=== PATIENT | male | born 1950 | race American Indian/Alaskan Native ===

== ENCOUNTER 2019-04-22 07:25 | Inpatient (IN) | payer MEDICARE ==
[2019-04-22] MEDS ORDERED: NACL 0.9% 1000 ML IV ONE (07:36)
--- NOTE | 2019-04-22 07:40 | Emergency Department Report ---
ED General Adult HPI - General Chief complaint: Weakness Stated complaint: HARSH Time Seen by Provider: 04/22/19 07:29 Source: patient, EMS (verbal report received from EMS.ems notes not available at time of chart dictation), RN notes reviewed Mode of arrival: Stretcher Limitations: Altered Mental Status - History of Present Illness Initial comments: This is a 68-year-old gentleman who is known to this provider previously. The patient does not know who his primary care doctor is. The patient does not know if he takes any medicines. He is brought to the hospital by EMS. As per verbal report from EMS, patient found walking on the street, with no evidence of trauma, and was reportedly wheezing and hypoxic. He is given magnesium, and steroids and albuterol by EMS. The patient denies physical pain at this time. He doesn't know where he is. He states that he ran the [place] in 2016, which he thinks is this year. The patient denies headache, neck pain, chest pain, abdominal pain. The patient denies shortness of breath. He states he has a son-in-law who lives closely, but he is not sure where the son-in-law lives. The patient is able to indicate that he lives in a place called [place], [place]. Patient not able to describe exacerbating or relieving factors, qualitative nature of his symptoms, exacerbating, or radiation of symptoms. -: unknown Radiation: other Quality: other Consistency: other Improves with: other Worsens with: other Associated Symptoms: other - Related Data Home Medications Medication Instructions Recorded Confirmed Last Taken Unobtainable 04/22/19 04/22/19 Unknown Allergies Allergy/AdvReac Type Severity Reaction Status Date / Time No Known Allergies Allergy Unverified 04/22/19 07:45 ED Review of Systems ROS: Stated complaint: HARSH Other details as noted in HPI Comment: Unobtainable due to pts medical conditions Constitutional: malaise, weakness Eyes: denies: eye discharge Respiratory: shortness of breath Cardiovascular: denies: chest pain Gastrointestinal: denies: abdominal pain Genitourinary: denies: dysuria Musculoskeletal: denies: back pain Neurological: weakness, confusion ED Past Medical Hx - Medications Home Medications: Home Medications Medication Instructions Recorded Confirmed Last Taken Type Unobtainable 04/22/19 04/22/19 Unknown History ED Physical Exam - General Limitations: Altered Mental Status General appearance: in no apparent distress - Head Head exam: Present: atraumatic, normocephalic - Eye Eye exam: Present: normal appearance, EOMI, other (visual acuity intact to finger counting and color perception). Absent: nystagmus - ENT ENT exam: Present: normal exam, normal orophraynx, mucous membranes moist, normal external ear exam - Neck Neck exam: Present: normal inspection, full ROM. Absent: tenderness, meningi smus - Respiratory Respiratory exam: Present: decreased breath sounds. Absent: respiratory distress, rales, rhonchi, stridor - Cardiovascular Cardiovascular Exam: Present: normal rhythm, systolic murmur. Absent: bradycar jasmeet, tachycardia, irregular rhythm, diastolic murmur, rubs, gallop - GI/Abdominal GI/Abdominal exam: Present: soft. Absent: distended, tenderness, guarding, xochilt ound, rigid, pulsatile mass - Rectal Rectal exam: Present: deferred - Extremities Exam Extremities exam: Present: normal inspection, full ROM, other (2+ pulses noted in the bilateral upper, lower extremities. Compartments soft. No long bony tenderness. The pelvis is stable.). Absent: calf tenderness - Back Exam Back exam: Present: normal inspection, full ROM. Absent: tenderness, CVA tenderness (R), paraspinal tenderness, vertebral tenderness - Neurological Exam Neurological exam: Present: altered, other (Extraocular movements intact. Tongue midline. No facial droop. Facial sensation intact to light touch in the V1, V2, V3 distribution bilaterally. 5 and 5 strength in 4 extremities.. Sensation is intact to light touch in 4 extremities.). Absent: motor sensory deficit - Psychiatric Psychiatric exam: Present: normal affect, normal mood - Skin Skin exam: Present: warm, dry, intact, normal color. Absent: rash ED Course Vital Signs 04/22/19 04/22/19 04/22/19 07:20 07:25 07:30 Temperature 97.1 F L Pulse Rate 109 H 102 H Respiratory 20 26 H Rate Blood Pressure 109/89 116/79 O2 Sat by Pulse 82 L 84 Oximetry 04/22/19 04/22/19 04/22/19 07:51 08:00 08:01 Temperature 97.1 F L Pulse Rate 109 H 103 H Respiratory 33 H 20 Rate Blood Pressure 117/86 O2 Sat by Pulse 83 L 90 Oximetry 04/22/19 04/22/19 04/22/19 08:30 09:00 09:36 Temperature Pulse Rate 99 H 96 H Respiratory 24 29 H Rate Blood Pressure 117/86 114/75 114/75 O2 Sat by Pulse 89 91 98 Oximetry 04/22/19 04/22/19 10:00 10:30 Temperature Pulse Rate 80 78 Respiratory 28 H 22 Rate Blood Pressure 129/72 119/82 O2 Sat by Pulse 100 98 Oximetry - Reevaluation(s) Reevaluation #1: 04/22/19 09:04 Differential diagnosis, including but not limited to: Heat stroke, toxic encephalopathy, metabolic encephalopathy, active anemia, viremia, pneumonia, urinary tract infection Assessment and plan 68-year-old gentleman, found walking, hypoxic, altered, with a nonfocal neurologic examination, likely dehydrated, evidence of acute renal insufficiency, hypernatremia, rhabdomyolysis, and also somewhat hypoxic. We will start the patient on IV fluids, obtain CT scan of the brain, chest, abdome n, pelvis without contrast, given lack of fever, lack of pain, doubt infectious etiology, but we will cover him. With broad-spectrum antibiotics, we will obtained a nephrology consult, and we will admit to the medical service once his initial diagnostics are resulted. Saturation improving on high flow high humidity nasal cannula. 04/22/19 09:05 Reevaluation #2: 04/22/19 11:17 CT scan of the brain negative for acute disease. CT scan of the chest, abdomen, pelvis negative for acute disease. Patient clinically improving. His motor exam is nonfocal, he is alert to name, and he follows commands. Suspect multifactorial etiology to altered mental status, including presumed hypoxemic respiratory failure, causing delirium, possible heat stroke. Patient has no n clau pain or neck stiffness at this time, no meningeal signs, and he does not have a fever, therefore, invasive MEDICAL OFFICE COORDINATOR infection does not appear to be likely at this time. Lactic acidosis likely secondary to dehydration, poor tissue perfusion secondary to dehydration, and possible heat stroke. Discussed with neurology, Dr. Lemus, who has evaluated the patient, and who agrees with conservative management and also agrees that note spinal tap is needed at this time. She does not recommend AED therapy at this time. Discussed with nephrology, Dr. Finn, who agrees his plan for IV fluids. Does not advise Osborne catheter at this time, as per current recommendations from infectious disease control. He also recommends VQ scan to evaluate for undifferentiated hypoxia which I agree with. CT scan of the brain negative for acute disease. CT scan of the chest shows incidental ascending aortic aneurysm, 5.4 cm, this is likely an incidental finding, the patient has no chest pain, and as it is less than 6 cm, does not require urgent operative intervention. This is likely an incidental finding which can be routinely followed up as an outpatient. CT scan of abdomen and pelvis is negative for acute disease. Discussed with Hospital physician, Dr. Kortney Saavedra, who [facility] patient [facility]. 04/22/19 11:20 Reevaluation #3: 04/22/19 11:22 Respiratory status improved on high flow high humidity nasal cannula therapy. Reevaluation #4: 04/22/19 11:37 Nuclear medicine study is low probability for pulmonary embolism. ED Medical Decision Making - Lab Data Result diagrams: 04/22/19 07:52 04/22/19 07:52 Vital Signs 04/22/19 04/22/19 04/22/19 07:20 07:25 07:30 Temperature 97.1 F L Pulse Rate 109 H 102 H Respiratory 20 26 H Rate Blood Pressure 109/89 116/79 O2 Sat by Pulse 82 L 84 Oximetry 04/22/19 04/22/19 04/22/19 07:51 08:00 08:01 Temperature 97.1 F L Pulse Rate 109 H 103 H Respiratory 33 H 20 Rate Blood Pressure 117/86 O2 Sat by Pulse 83 L 90 Oximetry 04/22/19 08:30 Temperature Pulse Rate 99 H Respiratory 24 Rate Blood Pressure 117/86 O2 Sat by Pulse 89 Oximetry Lab Results 04/22/19 04/22/19 04/22/19 Range/Units 07:52 07:52 07:52 WBC 17.7 H (4.5-11.0) K/mm3 RBC 4.91 (3.65-5.03) M/mm3 Hgb 14.6 (11.8-15.2) gm/dl Hct 43.8 (35.5-45.6) % MCV 89 (84-94) fl MCH 30 (28-32) pg MCHC 33 (32-34) % RDW 14.4 (13.2-15.2) % Plt Count 245 (140-440) K/mm3 Lymph % (Auto) 5.0 L (13.4-35.0) % Day % (Auto) 7.6 H (0.0-7.3) % Eos % (Auto) 0.0 (0.0-4.3) % Baso % (Auto) 0.2 (0.0-1.8) % Lymph # 0.9 L (1.2-5.4) K/mm3 Day # 1.3 H (0.0-0.8) K/mm3 Eos # 0.0 (0.0-0.4) K/mm3 Baso # 0.0 (0.0-0.1) K/mm3 Seg Neutrophils % 87.2 H (40.0-70.0) % Seg Neutrophils # 15.4 H (1.8-7.7) K/mm3 PT 14.7 (12.2-14.9) Sec. INR 1.18 H (0.87-1.13) Sodium 152 H (137-145) mmol/L Potassium 3.6 (3.6-5.0) mmol/L Chloride 112.2 H (98-107) mmol/L Carbon Dioxide 20 L (22-30) mmol/L Anion Gap 23 mmol/L BUN 36 H (9-20) mg/dL Creatinine 3.5 H (0.8-1.5) mg/dL Estimated GFR 18 ml/min BUN/Creatinine Ratio 10 % Glucose 160 H (75-100) mg/dL Lactic Acid (0.7-2.0) mmol/L Calcium 10.4 H (8.4-10.2) mg/dL Magnesium 3.20 H (1.7-2.3) mg/dL Total Bilirubin 1.10 (0.1-1.2) mg/dL AST 46 H (5-40) units/L ALT 21 (7-56) units/L Alkaline Phosphatase 99 (35-129) units/L Ammonia (25-60) umol/L Total Creatine Kinase 3140 H (55-170) units/L Troponin T 0.029 (0.00-0.029) ng/mL Total Protein 8.7 H (6.3-8.2) g/dL Albumin 4.4 (3.9-5) g/dL Albumin/Globulin Ratio 1.0 % TSH (0.270-4.200) mlU/mL Free T4 (0.76-1.46) ng/dL Salicylates (2.8-20.0) mg/dL Acetaminophen (10.0-30.0) ug/mL Plasma/Serum Alcohol (0-0.07) % 04/22/19 04/22/19 04/22/19 Range/Units 07:52 07:52 07:52 WBC (4.5-11.0) K/mm3 RBC (3.65-5.03) M/mm3 Hgb (11.8-15.2) gm/dl Hct (35.5-45.6) % MCV (84-94) fl MCH (28-32) pg MCHC (32-34) % RDW (13.2-15.2) % Plt Count (140-440) K/mm3 Lymph % (Auto) (13.4-35.0) % Day % (Auto) (0.0-7.3) % Eos % (Auto) (0.0-4.3) % Baso % (Auto) (0.0-1.8) % Lymph # (1.2-5.4) K/mm3 Day # (0.0-0.8) K/mm3 Eos # (0.0-0.4) K/mm3 Baso # (0.0-0.1) K/mm3 Seg Neutrophils % (40.0-70.0) % Seg Neutrophils # (1.8-7.7) K/mm3 PT (12.2-14.9) Sec. INR (0.87-1.13) Sodium (137-145) mmol/L Potassium (3.6-5.0) mmol/L Chloride (98-107) mmol/L Carbon Dioxide (22-30) mmol/L Anion Gap mmol/L BUN (9-20) mg/dL Creatinine (0.8-1.5) mg/dL Estimated GFR ml/min BUN/Creatinine Ratio % Glucose (75-100) mg/dL Lactic Acid 3.60 H* (0.7-2.0) mmol/L Calcium (8.4-10.2) mg/dL Magnesium (1.7-2.3) mg/dL Total Bilirubin (0.1-1.2) mg/dL AST (5-40) units/L ALT (7-56) units/L Alkaline Phosphatase (35-129) units/L Ammonia (25-60) umol/L Total Creatine Kinase (55-170) units/L Troponin T (0.00-0.029) ng/mL Total Protein (6.3-8.2) g/dL Albumin (3.9-5) g/dL Albumin/Globulin Ratio % TSH (0.270-4.200) mlU/mL Free T4 (0.76-1.46) ng/dL Salicylates < 0.3 L (2.8-20.0) mg/dL Acetaminophen < 5.0 L (10.0-30.0) ug/mL Plasma/Serum Alcohol (0-0.07) % 04/22/19 04/22/19 04/22/19 Range/Units 07:52 07:52 07:52 WBC (4.5-11.0) K/mm3 RBC (3.65-5.03) M/mm3 Hgb (11.8-15.2) gm/dl Hct (35.5-45.6) % MCV (84-94) fl MCH (28-32) pg MCHC (32-34) % RDW (13.2-15.2) % Plt Count (140-440) K/mm3 Lymph % (Auto) (13.4-35.0) % Day % (Auto) (0.0-7.3) % Eos % (Auto) (0.0-4.3) % Baso % (Auto) (0.0-1.8) % Lymph # (1.2-5.4) K/mm3 Day # (0.0-0.8) K/mm3 Eos # (0.0-0.4) K/mm3 Baso # (0.0-0.1) K/mm3 Seg Neutrophils % (40.0-70.0) % Seg Neutrophils # (1.8-7.7) K/mm3 PT (12.2-14.9) Sec. INR (0.87-1.13) Sodium (137-145) mmol/L Potassium (3.6-5.0) mmol/L Chloride (98-107) mmol/L Carbon Dioxide (22-30) mmol/L Anion Gap mmol/L BUN (9-20) mg/dL Creatinine (0.8-1.5) mg/dL Estimated GFR ml/min BUN/Creatinine Ratio % Glucose (75-100) mg/dL Lactic Acid (0.7-2.0) mmol/L Calcium (8.4-10.2) mg/dL Magnesium (1.7-2.3) mg/dL Total Bilirubin (0.1-1.2) mg/dL AST (5-40) units/L ALT (7-56) units/L Alkaline Phosphatase (35-129) units/L Ammonia 47.0 (25-60) umol/L Total Creatine Kinase (55-170) units/L Troponin T (0.00-0.029) ng/mL Total Protein (6.3-8.2) g/dL Albumin (3.9-5) g/dL Albumin/Globulin Ratio % TSH (0.270-4.200) mlU/mL Free T4 1.51 H (0.76-1.46) ng/dL Salicylates (2.8-20.0) mg/dL Acetaminophen (10.0-30.0) ug/mL Plasma/Serum Alcohol < 0.01 (0-0.07) % // Range/Units 07:52 WBC (4.5-11.0) K/mm3 RBC (3.65-5.03) M/mm3 Hgb (11.8-15.2) gm/dl Hct (35.5-45.6) % MCV (84-94) fl MCH (28-32) pg MCHC (32-34) % RDW (13.2-15.2) % Plt Count (140-440) K/mm3 Lymph % (Auto) (13.4-35.0) % Day % (Auto) (0.0-7.3) % Eos % (Auto) (0.0-4.3) % Baso % (Auto) (0.0-1.8) % Lymph # (1.2-5.4) K/mm3 Day # (0.0-0.8) K/mm3 Eos # (0.0-0.4) K/mm3 Baso # (0.0-0.1) K/mm3 Seg Neutrophils % (40.0-70.0) % Seg Neutrophils # (1.8-7.7) K/mm3 PT (12.2-14.9) Sec. INR (0.87-1.13) Sodium (137-145) mmol/L Potassium (3.6-5.0) mmol/L Chloride (98-107) mmol/L Carbon Dioxide (22-30) mmol/L Anion Gap mmol/L BUN (9-20) mg/dL Creatinine (0.8-1.5) mg/dL Estimated GFR ml/min BUN/Creatinine Ratio % Glucose (75-100) mg/dL Lactic Acid (0.7-2.0) mmol/L Calcium (8.4-10.2) mg/dL Magnesium (1.7-2.3) mg/dL Total Bilirubin (0.1-1.2) mg/dL AST (5-40) units/L ALT (7-56) units/L Alkaline Phosphatase (35-129) units/L Ammonia (25-60) umol/L Total Creatine Kinase (55-170) units/L Troponin T (0.00-0.029) ng/mL Total Protein (6.3-8.2) g/dL Albumin (3.9-5) g/dL Albumin/Globulin Ratio % TSH 2.260 (0.270-4.200) mlU/mL Free T4 (0.76-1.46) ng/dL Salicylates (2.8-20.0) mg/dL Acetaminophen (10.0-30.0) ug/mL Plasma/Serum Alcohol (0-0.07) % - EKG Data -: EKG Interpreted by Mn EKG shows normal: sinus rhythm Rate: normal - EKG Data When compared to previous EKG there are: previous EKG unavailable 04/22/19 09:07 EKG #2 suggests atrial fibrillation, with a left axis deviation, premature ventricular contractions, QTC within normal limits, motion artifact, no endorsement of chest pain, the EKG is abnormal, however, not consistent with ST elevation myocardial infarction. - Radiology Data Radiology results: report reviewed, image reviewed Print Report Referring Physician: MADDIE FORD Patient Name: TIKI COLLINS Date of : 1950 Sex: Male Report Date: 2019-04-22 Report Status: Finalized Findings [facility] [address] [place] [address] XRay Report Signed Patient: TIKI COLLINS MR#: [id number] : 1950 Acct:[id number] Age/Sex: 68 / M ADM Date: 04/22/19 Loc: ED Attending Dr: Ordering Physician: MADDIE FORD MD Date of Service: 04/22/19 Procedure(s): XR chest 1V ap Accession Number(s): [id number] cc: MADDIE FORD MD Fluoro Time In Minutes: CHEST 1 VIEW INDICATION: Acute shortness of breath. COMPARISON: None FINDINGS: Support devices: None. Heart: Heart size is within normal limits. The ascending aorta is markedly ectatic but well defined. This could indicate aortic valve stenosis. Lungs/Pleura: Normal pulmonary vessels. The lungs are clear. No pleural effusion or pneumothorax. Additional findings: Chronic left rib fractures are noted. No acute bony findings. IMPRESSION: 1. Ectatic ascending aorta. Lungs clear. Signer Name: Joseph Blount Jr, MD Signed: 04/22/2019 8:14 AM Workstation Name: [id number] Transcribed By: TTR Dictated By: JOSEPH BLOUNT JR, MD Electronically Authenticated By: JOSEPH BLOUNT JR, MD Signed Date/Time: 04/22/[address] scan of brain negative for acute disease. CT scan of the chest negative for acute disease, AAA/5.[address] scan of the abdomen and pelvis negative for acute disease, incidental findings noted. Critical Care Time: Yes Critical care time in (mins) excluding proc time.: 60 Critical care attestation.: If time is entered above; I have spent that time in minutes in the direct care of this critically ill patient, excluding procedure time. ED Disposition Clinical Impression: Encephalopathy acute, Respiratory failure, SEVERO (acute kidney injury), Rhabdomyolysis Disposition: OP ADMIT IP TO THIS HOSP Is pt being admited?: Yes Condition: Fair
[2019-04-22 08:13] LABS: Basophils % (Auto) 0.2 % (0.0-1.8); Hematocrit 43.8 % (35.5-45.6); Hemoglobin 14.6 gm/dl (11.8-15.2); Lymphocytes # (Auto) 0.9 K/mm3 (1.2-5.4); Mean Corpuscular HGB Conc 33 % (32-34); Mean Corpuscular Volume 89 fl (84-94); Monocytes # (Auto) 1.3 K/mm3 (0.0-0.8); Monocytes % (Auto) 7.6 % (0.0-7.3); Platelet Count 245 K/mm3 (140-440); Red Blood Count 4.91 M/mm3 (3.65-5.03); Red Cell Distribution Width 14.4 % (13.2-15.2)
--- NOTE | 2019-04-22 08:18 | XRay Report ---
CHEST 1 VIEW INDICATION: Acute shortness of breath. COMPARISON: None FINDINGS: Support devices: None. Heart: Heart size is within normal limits. The ascending aorta is markedly ectatic but well defined. This could indicate aortic valve stenosis. Lungs/Pleura: Normal pulmonary vessels. The lungs are clear. No pleural effusion or pneumothorax. Additional findings: Chronic left rib fractures are noted. No acute bony findings. IMPRESSION: 1. Ectatic ascending aorta. Lungs clear. Signer Name: Joseph Blount Jr, MD Signed: 04/22/2019 8:14 AM Workstation Name: [id number]
[2019-04-22 08:25] LABS: INR 1.18 (0.87-1.13)
[2019-04-22 08:30] LABS: Albumin 4.4 g/dL (3.9-5); Calcium 10.4 mg/dL (8.4-10.2)
[2019-04-22] MEDS ORDERED: NACL 0.9% 500 ML 500 ML IV ONE (08:59)
[2019-04-22] MEDS ORDERED: ZOSYN/NS 3.375GM/50ML 3.375 GM/50 ML BAG IV ONE (10:00)
--- NOTE | 2019-04-22 10:15 | Cat Scan Report ---
CT CHEST WITHOUT CONTRAST INDICATION / CLINICAL INFORMATION: sob. Difficulty in breathing for one day TECHNIQUE: Axial CT images were obtained through the chest without contrast. All CT scans at this location are p erformed using CT dose reduction for ALARA by means of automated exposure control. COMPARISON: None available. FINDINGS: HEART: Normal heart size. Moderate aortic valve calcifications are identified. No pericardial abnorma lity. THORACIC AORTA: The ascending aorta is dilated up to 5.4 cm in diameter. The aortic arch measures 3.9 cm. The descending thoracic aorta measures 3.0 cm. There is no obvious dissection although this is a noncontrast exam MEDIASTINUM and CHRISTOPHER: No significant abnormality. LUNGS: No acute air space or interstitial disease. Minor linear scarring or atelectasis is noted in both lower lobes. PLEURA: No significant pleural effusion. No pneumothorax. ADDITIONAL FINDINGS: None. UPPER ABDOMEN: Mild colonic diverticulosis. SKELETAL SYSTEM: Intact. Mild thoracic spondylosis IMPRESSION: 1. Dilated ascending aorta measuring up to 5.4 cm in diameter. Aortic valve calcifications. Correlate for aortic stenosis. 2. Minor scarring or atelectatic changes in the lower lobes. Signer Name: Joseph Blount Jr, MD Signed: 04/22/2019 10:11 AM Workstation Name: [id number]
--- NOTE | 2019-04-22 10:19 | Cat Scan Report ---
CT ABDOMEN AND PELVIS WITHOUT CONTRAST HISTORY: Abnormal kidney function, difficulty breathing for one day, patient denies abdominal pain. COMPARISON: None. TECHNIQUE: CT images of the abdomen and pelvis were obtained without administration of intravenous co ntrast. All CT scans at this location are performed using CT dose reduction for ALARA by means of au tomated exposure control. 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 N ormal biliary system, pancreas, spleen and adrenal glands. Both kidneys are normal size, contour and position. A 7 mm calyceal stone is identified at the inferi or pole of the left kidney. The ureters and bladder are unremarkable. The bowel loops are normal caliber and wall thickness. There is mild diverticulosis of the distal col on. Normal appendix. No evidence for ascites, bulky adenopathy, free air or inflammatory changes. The abdominal aorta is n ormal caliber. The bony structures are intact. Moderate degenerative disc disease is noted at L5-S1. Heterotopic theresa cifications are identified posterior to the right ischium suggesting previous trauma. Ventriculoperitoneal shunt tubing in the abdomen is noted without abnormality IMPRESSION: No acute abdominal process. 7 mm left renal calculus, nonobstructing. Mild diverticulosis of the distal colon. Signer Name: Joseph Blount Jr, MD Signed: 04/22/2019 10:15 AM Workstation Name: [id number]
--- NOTE | 2019-04-22 10:21 | Emergency Department Report ---
ED Neuro Deficit HPI - General Chief Complaint: Weakness Stated Complaint: HARSH Time Seen by Provider: 04/22/19 07:29 Source: patient, EMS (verbal report received from EMS.ems notes not available at time of chart dictation), RN notes reviewed Mode of arrival: Stretcher Limitations: Altered Mental Status - History of Present Illness Initial Comments: [facility] DATE: April 22 2019 Impression: AMS-patient with mx toxic metaboic issues hypernatremia, elevated lactate, renal failure likley toxic metabolic in nature. Has hx aneurysm, shunt, no hx seizures. No focal findings. Can rehydrate, was also hypoxic, can consider MRI brain, EEG defer to inpatient neurology. 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 Of course if clinical course declines could consider LP/tapping shunt no need for moment. No need for empiric antiepileptic therapy at this point in time. If the patient improves as expected with correction of his underlying toxic metabolic issues than likely heatstroke/dehydration at play. Of course if he declines in anyway additional or more aggressive workup can be considered. Recommendations: -rehydration -hold sedating meds -hopefully family can be contacted for more information -as above -admit for observation/neurology consultation CC: AMS History of Present Illness: The patient is a 68 year old man with a hx of prior ruptured brain aneurysms s/p shunt placement denies hx seizures. He was found walking down the road confused found to be mildly hypoxic with sat of 83% also in SEVERO creatinine of 3.5 with elvated lactate of 3.6 and WBC of 17. VSS normal BP no fever, no MATHIS no N/V. Pleasantly confused. Diagnostic Testing: CT w/o stable no acute findings HOT PLATE [employer] FEEDER shunt in place Vital Signs: afebrile, BP 129/72. Exam: Mental Status: Awake, alert, oriented to person, knows day of week, month, year president cannot say hes at [facility], when asked why hes here he said he was tryign to run the [employer] which was apparently yesterday. Follows commands, names ob jections Naming: Intact Repetition: Intact Speech: fluent Cranial Nerves: Pupils: Equal round and reactive to light Extraocular movements: Intact in all cardinal gaze Ptosis: Absent Visual gamboa: Intact to finger counting Facial sensation: Intact to pin and light touch Facial movements: Intact and symmetric Motor Exam: No drift Tremor/Abnormal Movements: Resting tremor: Absent Intention tremor: Absent Postural tremor: Absent Sensory Exam: Light touch: Intact Pinprick: Intact Coordination: Finger to nose: Intact Heel to owens: Intact Medical Decision Making: - Extensive number of diagnosis or management options are considered above. - Extensive amount of complex data reviewed. - High risk of complication and/or morbidity or mortality are associated with differential diagnostic considerations above. - There may be uncertain outcome and increased probability of prolonged functional impairment or high probability of severe prolonged functional impairment associated with some of these differential diagnosis. Medical Data Reviewed: 1.Data reviewed include clinical labs, radiology, Medical Tests; 2.Tests results discussed w/performing or interpreting physician; 3.Obtaining/reviewing old medical records; 4.Obtaining case history from another source; 5.Independent review of image, tracing or specimen. Patient was informed the Neurology Consult would happen via telehealth (remote video) and consented to receiving care in this manner. - Related Data Home Medications: Home Medications Medication Instructions Recorded Confirmed Last Taken Unobtainable 04/22/19 04/22/19 Unknown Allergies/Adverse Reactions: Allergies Allergy/AdvReac Type Severity Reaction Status Date / Time No Known Allergies Allergy Unverified 04/22/19 07:45 ED Review of Systems ROS: Stated complaint: HARSH Other details as noted in HPI Constitutional: malaise, weakness Eyes: denies: eye discharge Respiratory: shortness of breath Cardiovascular: denies: chest pain Gastrointestinal: denies: abdominal pain Genitourinary: denies: dysuria Musculoskeletal: denies: back pain Neurological: weakness, confusion ED Past Medical Hx - Past Medical History Hx Hypertension: Yes Additional medical history: Brain Aneurysm - Surgical History Past Surgical History?: Yes Additional Surgical History: Brain - Social History Smoking Status: Unknown if ever smoked Substance Use Type: None - Medications Home Medications: Home Medications Medication Instructions Recorded Confirmed Last Taken Type Unobtainable 04/22/19 04/22/19 Unknown History ED Neuro Physical Exam - General Limitations: Altered Mental Status General appearance: in no apparent distress Suspected Stroke: No ED Course Vital Signs 04/22/19 04/22/19 04/22/19 07:20 07:25 07:30 Temperature 97.1 F L Pulse Rate 109 H 102 H Respiratory 20 26 H Rate Blood Pressure 109/89 116/79 O2 Sat by Pulse 82 L 84 Oximetry 04/22/19 04/22/19 04/22/19 07:51 08:00 08:01 Temperature 97.1 F L Pulse Rate 109 H 103 H Respiratory 33 H 20 Rate Blood Pressure 117/86 O2 Sat by Pulse 83 L 90 Oximetry 04/22/19 04/22/19 04/22/19 08:30 09:00 09:36 Temperature Pulse Rate 99 H 96 H Respiratory 24 29 H Rate Blood Pressure 117/86 114/75 114/75 O2 Sat by Pulse 89 91 98 Oximetry 04/22/19 10:00 Temperature Pulse Rate 80 Respiratory 28 H Rate Blood Pressure 129/72 O2 Sat by Pulse 100 Oximetry - Lab Data Result diagrams: 04/22/19 07:52 04/22/19 07:52 Lab Results 04/22/19 04/22/19 04/22/19 Range/Units 07:52 07:52 07:52 WBC 17.7 H (4.5-11.0) K/mm3 RBC 4.91 (3.65-5.03) M/mm3 Hgb 14.6 (11.8-15.2) gm/dl Hct 43.8 (35.5-45.6) % MCV 89 (84-94) fl MCH 30 (28-32) pg MCHC 33 (32-34) % RDW 14.4 (13.2-15.2) % Plt Count 245 (140-440) K/mm3 Lymph % (Auto) 5.0 L (13.4-35.0) % [place] % (Auto) 7.6 H (0.0-7.3) % Eos % (Auto) 0.0 (0.0-4.3) % Baso % (Auto) 0.2 (0.0-1.8) % Lymph # 0.9 L (1.2-5.4) K/mm3 [place] # 1.3 H (0.0-0.8) K/mm3 Eos # 0.0 (0.0-0.4) K/mm3 Baso # 0.0 (0.0-0.1) K/mm3 Seg Neutrophils % 87.2 H (40.0-70.0) % Seg Neutrophils # 15.4 H (1.8-7.7) K/mm3 PT 14.7 (12.2-14.9) Sec. INR 1.18 H (0.87-1.13) Sodium 152 H (137-145) mmol/L Potassium 3.6 (3.6-5.0) mmol/L Chloride 112.2 H (98-107) mmol/L Carbon Dioxide 20 L (22-30) mmol/L Anion Gap 23 mmol/L BUN 36 H (9-20) mg/dL Creatinine 3.5 H (0.8-1.5) mg/dL Estimated GFR 18 ml/min BUN/Creatinine Ratio 10 % Glucose 160 H (75-100) mg/dL Lactic Acid (0.7-2.0) mmol/L Calcium 10.4 H (8.4-10.2) mg/dL Magnesium 3.20 H (1.7-2.3) mg/dL Total Bilirubin 1.10 (0.1-1.2) mg/dL AST 46 H (5-40) units/L ALT 21 (7-56) units/L Alkaline Phosphatase 99 (35-129) units/L Ammonia (25-60) umol/L Total Creatine Kinase 3140 H (55-170) units/L Troponin T 0.029 (0.00-0.029) ng/mL Total Protein 8.7 H (6.3-8.2) g/dL Albumin 4.4 (3.9-5) g/dL Albumin/Globulin Ratio 1.0 % TSH (0.270-4.200) mlU/mL Free T4 (0.76-1.46) ng/dL Salicylates (2.8-20.0) mg/dL Acetaminophen (10.0-30.0) ug/mL Plasma/Serum Alcohol (0-0.07) % 04/22/19 04/22/19 04/22/19 Range/Units 07:52 07:52 07:52 WBC (4.5-11.0) K/mm3 RBC (3.65-5.03) M/mm3 Hgb (11.8-15.2) gm/dl Hct (35.5-45.6) % MCV (84-94) fl MCH (28-32) pg MCHC (32-34) % RDW (13.2-15.2) % Plt Count (140-440) K/mm3 Lymph % (Auto) (13.4-35.0) % [place] % (Auto) (0.0-7.3) % Eos % (Auto) (0.0-4.3) % Baso % (Auto) (0.0-1.8) % Lymph # (1.2-5.4) K/mm3 [place] # (0.0-0.8) K/mm3 Eos # (0.0-0.4) K/mm3 Baso # (0.0-0.1) K/mm3 Seg Neutrophils % (40.0-70.0) % Seg Neutrophils # (1.8-7.7) K/mm3 PT (12.2-14.9) Sec. INR (0.87-1.13) Sodium (137-145) mmol/L Potassium (3.6-5.0) mmol/L Chloride (98-107) mmol/L Carbon Dioxide (22-30) mmol/L Anion Gap mmol/L BUN (9-20) mg/dL Creatinine (0.8-1.5) mg/dL Estimated GFR ml/min BUN/Creatinine Ratio % Glucose (75-100) mg/dL Lactic Acid 3.60 H* (0.7-2.0) mmol/L Calcium (8.4-10.2) mg/dL Magnesium (1.7-2.3) mg/dL Total Bilirubin (0.1-1.2) mg/dL AST (5-40) units/L ALT (7-56) units/L Alkaline Phosphatase (35-129) units/L Ammonia (25-60) umol/L Total Creatine Kinase (55-170) units/L Troponin T (0.00-0.029) ng/mL Total Protein (6.3-8.2) g/dL Albumin (3.9-5) g/dL Albumin/Globulin Ratio % TSH (0.270-4.200) mlU/mL Free T4 (0.76-1.46) ng/dL Salicylates < 0.3 L (2.8-20.0) mg/dL Acetaminophen < 5.0 L (10.0-30.0) ug/mL Plasma/Serum Alcohol (0-0.07) % 04/22/19 04/22/19 04/22/19 Range/Units 07:52 07:52 07:52 WBC (4.5-11.0) K/mm3 RBC (3.65-5.03) M/mm3 Hgb (11.8-15.2) gm/dl Hct (35.5-45.6) % MCV (84-94) fl MCH (28-32) pg MCHC (32-34) % RDW (13.2-15.2) % Plt Count (140-440) K/mm3 Lymph % (Auto) (13.4-35.0) % [place] % (Auto) (0.0-7.3) % Eos % (Auto) (0.0-4.3) % Baso % (Auto) (0.0-1.8) % Lymph # (1.2-5.4) K/mm3 [place] # (0.0-0.8) K/mm3 Eos # (0.0-0.4) K/mm3 Baso # (0.0-0.1) K/mm3 Seg Neutrophils % (40.0-70.0) % Seg Neutrophils # (1.8-7.7) K/mm3 PT (12.2-14.9) Sec. INR (0.87-1.13) Sodium (137-145) mmol/L Potassium (3.6-5.0) mmol/L Chloride (98-107) mmol/L Carbon Dioxide (22-30) mmol/L Anion Gap mmol/L BUN (9-20) mg/dL Creatinine (0.8-1.5) mg/dL Estimated GFR ml/min BUN/Creatinine Ratio % Glucose (75-100) mg/dL Lactic Acid (0.7-2.0) mmol/L Calcium (8.4-10.2) mg/dL Magnesium (1.7-2.3) mg/dL Total Bilirubin (0.1-1.2) mg/dL AST (5-40) units/L ALT (7-56) units/L Alkaline Phosphatase (35-129) units/L Ammonia 47.0 (25-60) umol/L Total Creatine Kinase (55-170) units/L Troponin T (0.00-0.029) ng/mL Total Protein (6.3-8.2) g/dL Albumin (3.9-5) g/dL Albumin/Globulin Ratio % TSH (0.270-4.200) mlU/mL Free T4 1.51 H (0.76-1.46) ng/dL Salicylates (2.8-20.0) mg/dL Acetaminophen (10.0-30.0) ug/mL Plasma/Serum Alcohol < 0.01 (0-0.07) % 04/22/19 Range/Units 07:52 WBC (4.5-11.0) K/mm3 RBC (3.65-5.03) M/mm3 Hgb (11.8-15.2) gm/dl Hct (35.5-45.6) % MCV (84-94) fl MCH (28-32) pg MCHC (32-34) % RDW (13.2-15.2) % Plt Count (140-440) K/mm3 Lymph % (Auto) (13.4-35.0) % [place] % (Auto) (0.0-7.3) % Eos % (Auto) (0.0-4.3) % Baso % (Auto) (0.0-1.8) % Lymph # (1.2-5.4) K/mm3 [place] # (0.0-0.8) K/mm3 Eos # (0.0-0.4) K/mm3 Baso # (0.0-0.1) K/mm3 Seg Neutrophils % (40.0-70.0) % Seg Neutrophils # (1.8-7.7) K/mm3 PT (12.2-14.9) Sec. INR (0.87-1.13) Sodium (137-145) mmol/L Potassium (3.6-5.0) mmol/L Chloride (98-107) mmol/L Carbon Dioxide (22-30) mmol/L Anion Gap mmol/L BUN (9-20) mg/dL Creatinine (0.8-1.5) mg/dL Estimated GFR ml/min BUN/Creatinine Ratio % Glucose (75-100) mg/dL Lactic Acid (0.7-2.0) mmol/L Calcium (8.4-10.2) mg/dL Magnesium (1.7-2.3) mg/dL Total Bilirubin (0.1-1.2) mg/dL AST (5-40) units/L ALT (7-56) units/L Alkaline Phosphatase (35-129) units/L Ammonia (25-60) umol/L Total Creatine Kinase (55-170) units/L Troponin T (0.00-0.029) ng/mL Total Protein (6.3-8.2) g/dL Albumin (3.9-5) g/dL Albumin/Globulin Ratio % TSH 2.260 (0.270-4.200) mlU/mL Free T4 (0.76-1.46) ng/dL Salicylates (2.8-20.0) mg/dL Acetaminophen (10.0-30.0) ug/mL Plasma/Serum Alcohol (0-0.07) % Critical care attestation.: If time is entered above; I have spent that time in minutes in the direct care of this critically ill patient, excluding procedure time. ED Disposition Clinical Impression: Encephalopathy acute Disposition: DC-09 OP ADMIT IP TO THIS HOSP Is pt being admited?: Yes Condition: Fair Referrals: MAXIMINO WESLEY MD [Primary Care Provider] - 3-5 Days
[2019-04-22 10:28] LABS: Bacteria,Urine 1+ /HPF (Negative); Bilirubin,Urine NEG (Negative); Blood,Urine LG (Negative); Color,Urine Yellow (Yellow); Hyaline Casts,Urine 1 /LPF; Mucus,Urine FEW /HPF; Urobilinogen,Urine < 2.0 mg/dL (<2.0)
--- NOTE | 2019-04-22 10:40 | Cat Scan Report ---
CT HEAD WITHOUT CONTRAST INDICATION : ams. Previous history of 2 brain aneurysms. TECHNIQUE: Axial imaging performed from the skull apex through the skull base without the use of con trast. All CT scans at this location are performed using CT dose reduction for ALARA by means of aut omated exposure control. COMPARISON: None FINDINGS: Parenchyma: Mild cortical atrophy and mild nonspecific chronic white matter changes are identified. No evidence for hemorrhage, mass, mass effect or extra-axial fluid collection. 1 cm chronic focal in farct is noted in the posterior right cerebellum. Previous aneurysm coiling along the right side of t he [place] of [place] and overlying the expected position of the right P-comm are noted, correlate with history. Ventricles: Ventricles are normal in size and appear symmetric. A right frontal and left parietal ve ntriculoperitoneal shunts are identified. Soft tissues: Soft tissues including the orbits appear normal. Bones: No acute osseous abnormality. Sinuses: Sinuses and mastoid air cells are clear. IMPRESSION: No acute abnormality. Mild volume loss and chronic right matter changes. Chronic 1 cm inf arct in the right cerebellum. Bilateral ventriculoperitoneal shunts are in place. No hydrocephalus. P revious aneurysm coiling as described. Signer Name: Joseph Blount Jr, MD Signed: 04/22/2019 10:36 AM Workstation Name: [id number]
--- NOTE | 2019-04-22 11:29 | Nuclear Medicine Report ---
VENTILATION PERFUSION PULMONARY SCINTIGRAPHY HISTORY: Acute shortness of breath and hypoxia COMPARISON: 04/22/2019 at 0744 hours chest radiograph. TECHNIQUE: Radiopharmaceutical was inhaled. Tc-99m-MAA was then injected. Ventilation and perfusion images were acquired. RADIOPHARMACEUTICAL: 13.8 mCi of Xe-133 inhaled 5.5 mCi of Tc-99m-MAA injected FINDINGS: VENTILATION: No significant air trapping or defect. PERFUSION: No significant segmental or non-segmental defect. Additional Findings: None. IMPRESSION: 1. Low probability for pulmonary embolism. Signer Name: Joseph Blount Jr, MD Signed: 04/22/2019 11:25 AM Workstation Name: [id number]
--- NOTE | 2019-04-22 11:35 | Consultation ---
History of Present Illness - Reason for Consult Consult date: 04/22/19 acute renal failure, hypernatremia - History of Present Illness Mr. Blanchard is a 68yo with hx of brain aneurysm and hypertension who presented to the ED via EMS due to AMS. Patient reports that he participated in the [employer] yesterday and states that ambulance was called because he "was not 100%". Per ED MD, patient was brought in by ambulance this morning as patient was found walking on the street, with no evidence of trauma, and was reportedly wheezing and hypoxic. Presently, patient denies fever, SOB, cough, N/V and diarrhea. He denies change in urine and urinary frequency. He denies NSAID use. Past History Past Medical History: hypertension (dx 2015), other (Brain aneurysm s/p repair, CONFIDENTIAL SECRETARY shunt in 2009) Past Surgical History: Other (as above) Social history: no significant social history Family history: no significant family history Medications and Allergies Allergies Allergy/AdvReac Type Severity Reaction Status Date / Time No Known Allergies Allergy Unverified 04/22/19 07:45 Home Medications Medication Instructions Recorded Confirmed Last Taken Type Hydrochlorothiazide 25 mg PO DAILY 04/22/19 04/22/19 Unknown History Lisinopril 20 mg PO DAILY 04/22/19 04/22/19 Unknown History amLODIPine 10 mg PO DAILY 04/22/19 04/22/19 Unknown History Review of Systems All systems: negative Exam - Vital Signs Vital signs: Vital Signs Pulse Ox 82 L 04/22/19 07:20 - General Appearance General appearance: well-developed, well-nourished EENT: ATNC, other (poor dentition) Respiratory: Clear to Ascultation Heart: regular, S1S2 Gastrointestinal: Present: normal. Absent: tenderness, distended Integumentary: no rash, warm and dry Neurologic: confused Musculoskeletal: Present: other (no edema) Psychiatric: cooperative Results - Lab Results 04/22/19 07:52 04/22/19 07:52 Most recent lab results Calcium 10.4 mg/dL (8.4-10.2) H 04/22/19 07:52 Magnesium 3.20 mg/dL (1.7-2.3) H 04/22/19 07:52 Assessment and Plan Impression: * Acute kidney injury secondary to dehydration * Altered mental status * Hypernatremia * Leukocytosis * Urinary tract infection * Hypertension Plan: * No acute indication for renal replacement therapy * Abd/Pelvis CT reviewed - only notable for 7mm left nonobstructing stone * Hold ACEi and thiazide diuretic * Await urine/blood cultures * Abx per primary team * Dose medications for renal function * Avoid potential nephrotoxins * Strict I/O
[2019-04-22] MEDS ORDERED: NACL 0.45% 1000 ML 1,000 ML IV SCH (13:00)
--- NOTE | 2019-04-22 16:35 | Consultation ---
Past History Past Medical History: hypertension (dx 2015), other (Brain aneurysm s/p repair, LAYER OFF shunt in 2009) Past Surgical History: Other (as above) Social history: no significant social history Family history: no significant family history Medications and Allergies Allergies Allergy/AdvReac Type Severity Reaction Status Date / Time No Known Allergies Allergy Unverified 04/22/19 07:45 Home Medications Medication Instructions Recorded Confirmed Last Taken Type Hydrochlorothiazide 25 mg PO DAILY 04/22/19 04/22/19 Unknown History Lisinopril 20 mg PO DAILY 04/22/19 04/22/19 Unknown History amLODIPine 10 mg PO DAILY 04/22/19 04/22/19 Unknown History Active Meds: Active Medications Sodium Chloride (Nacl 0.45% 1000 Ml) 1,000 mls @ 75 mls/hr IV DIRECT BRAXTON Last Admin: 04/22/19 14:08 Dose: 75 mls/hr Documented by: Physical Examination - Vital Signs Vital Signs: Vital Signs Pulse Ox 82 L 04/22/19 07:20 Results - Laboratory Findings CBC and BMP: 04/22/19 07:52 04/22/19 07:52 Abnormal Lab Findings: Abnormal Labs 04/22/19 04/22/19 04/22/19 07:52 07:52 07:52 WBC 17.7 H Lymph % (Auto) 5.0 L [place] % (Auto) 7.6 H Lymph # 0.9 L [place] # 1.3 H Seg Neutrophils % 87.2 H Seg Neutrophils # 15.4 H INR 1.18 H POC ABG pO2 Sodium 152 H Chloride 112.2 H Carbon Dioxide 20 L BUN 36 H Creatinine 3.5 H Glucose 160 H Lactic Acid Calcium 10.4 H Magnesium 3.20 H AST 46 H Total Creatine Kinase 3140 H Total Protein 8.7 H Free T4 Salicylates Acetaminophen 04/22/19 04/22/19 04/22/19 07:52 07:52 07:52 WBC Lymph % (Auto) [place] % (Auto) Lymph # [place] # Seg Neutrophils % Seg Neutrophils # INR POC ABG pO2 Sodium Chloride Carbon Dioxide BUN Creatinine Glucose Lactic Acid 3.60 H* Calcium Magnesium AST Total Creatine Kinase Total Protein Free T4 Salicylates < 0.3 L Acetaminophen < 5.0 L 04/22/19 04/22/19 04/22/19 07:52 09:37 10:31 WBC Lymph % (Auto) [place] % (Auto) Lymph # [place] # Seg Neutrophils % Seg Neutrophils # INR POC ABG pO2 Sodium Chloride Carbon Dioxide BUN Creatinine Glucose Lactic Acid 3.00 H* 2.60 H* Calcium Magnesium AST Total Creatine Kinase Total Protein Free T4 1.51 H Salicylates Acetaminophen 04/22/19 04/22/19 10:41 15:09 WBC Lymph % (Auto) [place] % (Auto) Lymph # [place] # Seg Neutrophils % Seg Neutrophils # INR POC ABG pO2 290 H Sodium Chloride Carbon Dioxide BUN Creatinine Glucose Lactic Acid 2.30 H* Calcium Magnesium AST Total Creatine Kinase Total Protein Free T4 Salicylates Acetaminophen Assessment and Plan Mr. Blanchard is a 68-year-old gentleman with a history of hypertension, and intracranial aneurysm status post clipping/coiling in the past was brought to the hospital on 04/21/2019 by the EMS. Patient could not tell why EMS was called and will call them. Patient states that he participate in a marathon race for the [employer] which is about 6.2 miles in the morning April 21. After completing the marathon race he was short of[ breath. Patient. he saw the EMS but did not know who called them. After after he was brought to the emergency workup revealed that he had lactic acidosis is BUN and creatinine were high. He had hypernatremia. And he had increased CPK 3240. CT scan of the brain did not show any acute infarct however it did show advanced atrophy for patient's age.During my examination patient's daughter was present who also reported that patient has problem with the short-term memory going on for a few years. Physical examination. Mental status. Patient was oriented to time place and circumstance. He was aware of his social and family dynamics. Patient had poor calculation, developmental is intact. Short-term memory was impaired. Recall was 0 over 3 in 5 minutes. With the help of clue he did not get any of them. 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 He also had some impairment of remote memory he could not clearly tell me when he got his Mus tests degree in accounting and is able to say when he graduated from high school. Heart. Normal rate and rhythm. Carotids. Both palpable, no bruit. Cranial nerve. All cranial nerves are within normal limits. Motor. Normal strength in all 4 extremities. Reflexes. Reflexes are within normal limits and there is no asymmetry of reflexes with bilateral downgoing toes. Coordination. Coordination is normal. Sensory. Sensory examination was grossly within normal limits. Gait. Gait was not tested although patient can ambulate without any assistive device and goes to the bathroom without any help. . Impression. #1. Patient seems to have metabolic encephalopathy most likely from dehydration caused by running 6.2 miles. #2. Patient also has rhabdomyolysis from continuous running for 6.2 miles as evidenced by increased CPK #3. Patient has moderate dementia as found out on bedside mental status testing which is supported by advanced atrophy of the brain seen on the CT scan. Recommendation. #1. Adequate hydration to be the CPK down. #2. Patient will be started on medication for dementia, such as NAMZARIC one capsule a day #3. The patient should be evaluated by a sleep specialist as he seems to have Obstructive sleep apnea which can contribute in worsen Dementia.
[2019-04-22] MEDS ORDERED: REGLAN IV PRN ×2 (22:05→22:21)
[2019-04-22] MEDS ORDERED: ZOFRAN IV PRN (22:05)
[2019-04-22] MEDS ORDERED: TYLENOL PO PRN (22:05)
[2019-04-22] MEDS ORDERED: SODIUM CHLORIDE FLUSH SYRINGE 10 ML IV PRN (22:05)
[2019-04-22] MEDS ORDERED: DILAUDID IV PRN (22:05)
[2019-04-22] MEDS: D5W 1,000 ML IV SCH (23:25)
[2019-04-22] MEDS: HEPARIN SUB-Q SCH (23:25)
[2019-04-23] MEDS: ZOSYN/NS 2.25 GM/50ML 2.25 GM/50 ML BAG IV SCH ×2 (00:39→06:00)
--- NOTE | 2019-04-23 04:30 | Event Note ---
Date: 04/22/19 see H/p in reports SEVERO Rhabdomyolysi
--- NOTE | 2019-04-23 05:43 | History and Physical Report ---
CHIEF COMPLAINT: Severe fatigue and dehydration. HISTORY OF PRESENT ILLNESS: A 68-year-old male comes in for severe weakness and he feels that he is dehydrated. He states that he is not 100%. The patient ran ____ race yesterday and no water was available to drink while he was running. The patient has muscle aches all over. The patient has history of hypertension. Never happened before. Feels tired and very weak. PAST MEDICAL HISTORY: Significant for hypertension, brain aneurysm, status post repair, GR[employer]UATE FELLOW shunt in 2009. PAST SURGICAL HISTORY: GRADUATE FELLOW shunt. SOCIAL HISTORY: No significant social history. FAMILY HISTORY: Hypertension. CURRENT MEDICATIONS: Lisinopril, amlodipine and hydrochlorothiazide. MEDICATIONS: On the chart. REVIEW OF SYSTEMS: Significant for feeling weak, muscle aches and feeling dehydrated. Generalized weakness. Otherwise, review of systems negative. PHYSICAL EXAMINATION: GENERAL: Elderly male, cooperative during examination. VITAL SIGNS: Blood pressure is 123/76, temperature is 97.8, pulse is 88, respiratory rate is 22. HEENT: Dry mucous membranes. Pupils equal and reactive. NECK: Supple, no lymphadenopathy, no thyromegaly. LUNGS: Clear to auscultation and percussion. Good air entry. CARDIOVASCULAR: S1, S2 heard. No gallop, no murmur, no rub. Apical impulse in left fifth intercostal space and midclavicular line. ABDOMEN: Soft and benign. No hepatosplenomegaly. No guarding, no rigidity. Hernial orifices are normal. EXTREMITIES: Good pedal pulses. No pedal edema. CENTRAL NERVOUS SYSTEM: Alert and oriented x 4, nonfocal exam. SKIN: Normal. LABORATORY DATA: White count is 17,700, H and H is 14.6 and 43.8, platelet count is 245,000. Electrolytes are significant for sodium of 152, BUN and creatinine of 36 and 3.5, glucose of 160. Lactic acid is 3.6, 2.6, 2.3, calcium is 10.4, magnesium is 3.2, BUN and creatinine is 36 and 3.5 Total CK is 3140, total protein is 8.7, free T4 is 1.51. Urine is negative. Head CT, no acute findings. CT abdomen, no acute abdominal process. A 7 mm left renal calculus, nonobstructing. Mild diverticulosis of the distal colon. Chest CT shows dilated ascending aorta measuring up to 5.4 cm in diameter, aortic valve calcification, correlate for aortic stenosis. Minor scarring or atelectatic changes in the lower lobe. ASSESSMENT AND PLAN: 1. Acute kidney injury secondary to rhabdomyolysis and severe dehydration. Aggressive IV fluid therapy in the form of D5W and half normal saline, possibly acute tubular necrosis. Nephrology consult requested. 2. Rhabdomyolysis. IV fluids, frequent creatine kinase check. 3. Hypertension. Continue antihypertensives. 4. Severe dehydration. Continue IV fluids. 5. Leukocytosis and elevated lactic acid secondary to demargination and sepsis unlikely. We will treat with empiric antibiotics in the form of ceftriaxone, which should cover broad spectrum, but we will deescalate the antibiotics. 6. Deep venous thrombosis prophylaxis, heparin 5000 q.12. In summary, the patient has acute kidney injury secondary to rhabdomyolysis and severe dehydration. Nephrology consult requested, creatinine is 3.5, but I expect the creatinine to come down to normal. SIRS, systemic inflammatory response syndrome. IV antibiotics initiated. Antibiotics may be deescalated. Leukocytosis may be secondary to demargination. Hypertension to be treated. Dehydration to be treated. Nephrology consult requested. Neurology consult requested because of the confusion and acute encephalopathy. JOB# [id number] TONO/SHERIF [place]
[2019-04-23 05:53] LABS: Basophils % (Auto) 0.1 % (0.0-1.8); Hematocrit 35.7 % (35.5-45.6); Hemoglobin 12.1 gm/dl (11.8-15.2); Lymphocytes # (Auto) 0.9 K/mm3 (1.2-5.4); Mean Corpuscular HGB Conc 34 % (32-34); Mean Corpuscular Volume 88 fl (84-94); Monocytes # (Auto) 1.4 K/mm3 (0.0-0.8); Monocytes % (Auto) 7.9 % (0.0-7.3); Platelet Count 193 K/mm3 (140-440); Red Blood Count 4.05 M/mm3 (3.65-5.03); Red Cell Distribution Width 14.9 % (13.2-15.2)
[2019-04-23] MEDS ORDERED: ZOSYN/NS 3.375GM/50ML 3.375 GM/50 ML BAG IV SCH (06:00)
[2019-04-23 06:14] LABS: Albumin 3.6 g/dL (3.9-5); Calcium 8.6 mg/dL (8.4-10.2)
[2019-04-23 06:29] LABS: Calcium 8.6 mg/dL (8.4-10.2)
--- NOTE | 2019-04-23 09:21 | Progress Note ---
Subjective Interval history: Patient was seen today for follow-up, regarding multiple renal related issues Events of 24 hours were noted Patient denies any complaints of chest pain pressure or shortness of breath Interdisciplinary Notes were also reviewed from past 24 hours Vitals labs intake output medications: Reviewed Past medical history: Reviewed Allergies: Reviewed Social history: Reviewed Family history: Reviewed Physical examination Gen.: No acute distress HEENT: Mild pallor nor icterus no uremic order Neck: Supple without any mass or JVD Chest: Clear to auscultation anteriorly Heart: Regular rate and rhythm S1 and S2 heard Abdomen: Soft nontender no suprapubic fullness no masses no renal bruit Extremity: Edema , no peripheral cyanosis Skin: No petechial rashes dry skin Assessment and plan Failure likely acute the patient is 68-year-old admitted with hypernatremia, altered mental status, low-grade metabolic acidosis Will need to monitor renal function closely no acute emergent indication for renal replacement therapy at this time Patient does have nephrolithiasis 7 mm left side nonobstructing needs follow-up with urology in outpatient setting upon discharge Lactic acidosis, improving peaked at 4.8 currently 2.6 Renal function is normalized creatinine is currently 1.5 Mild metabolic acidosis today bicarbonate is 21 potassium is 3.5 Low-grade rhabdomyolysis, patient's CK is 6633 Urinalysis essentially unremarkable for any red blood cells but showed large amount of blood likely due to rhabdo CT scan: Reviewed kidney ureter bladder otherwise unremarkable Continue to hold hydrochlorothiazide, lisinopril IV fluid, Ringer's lactate Had a detailed discussion with patient about renal care plan, Renal prognosis currently is guarded Significant lab finding were discussed with patient unexplained and simple Ukrainian Patient does have good understanding about renal related issues We'll continue to follow and make recommendation from renal standpoint Objective - Vital Signs Vital signs: Vital Signs - 12hr 04/22/19 04/23/19 04/23/19 22:00 01:00 02:25 Temperature 98.3 F Pulse Rate 62 72 Pulse Rate [ 88 Left Radial] Respiratory 20 20 Rate Respiratory 20 Rate [ Generalized] Blood Pressure 118/67 O2 Sat by Pulse 98 96 Oximetry 04/23/19 07:37 Temperature Pulse Rate 72 Pulse Rate [ Left Radial] Respiratory 18 Rate Respiratory Rate [ Generalized] Blood Pressure 114/77 O2 Sat by Pulse 97 Oximetry - Lab 04/23/19 05:08 04/23/19 05:08 Most recent lab results Calcium 8.6 mg/dL (8.4-10.2) 04/23/19 05:08 Calcium 8.6 mg/dL (8.4-10.2) D 04/23/19 05:08 Magnesium 3.20 mg/dL (1.7-2.3) H 04/22/19 07:52 Medications & Allergies - Medications Allergies/Adverse Reactions: Allergies No Known Allergies Allergy (Unverified 04/22/19 07:45) Home Medications: Home Medications Medication Instructions Recorded Confirmed Last Taken Type Hydrochlorothiazide 25 mg PO DAILY 04/22/19 04/22/19 Unknown History Lisinopril 20 mg PO DAILY 04/22/19 04/22/19 Unknown History amLODIPine 10 mg PO DAILY 04/22/19 04/22/19 Unknown History Active Medications: Generic Name Dose Route Start Last Admin Trade Name Freq PRN Reason Stop Dose Admin Acetaminophen 650 mg 04/22/19 22:05 Tylenol PO Q4H PRN Pain MILD(1-3)/Fever >100.5/MATHIS Famotidine 10 mg 04/23/19 10:00 Pepcid IV BID BRAXTON Heparin Sodium (Porcine) 5,000 unit 04/22/19 22:15 04/22/19 23:25 Heparin SUB-Q 5,000 unit Q12HR BRAXTON Administration Hydromorphone HCl 0.5 mg 04/22/19 22:05 Dilaudid IV Q3H PRN Pain , Severe (7-10) Dextrose 1,000 mls @ 125 mls/hr 04/22/19 23:00 04/22/19 23:25 D5w IV 125 mls/hr DIRECT BRAXTON Administration Ceftriaxone Sodium 1 gm in 50 mls @ 100 mls/hr 04/23/19 10:00 Rocephin/Ns 1 Gm/50 Ml IV Q24HR BRAXTON Protocol Metoclopramide HCl 5 mg 04/22/19 22:21 Reglan IV Q6H PRN Nausea And Vomiting Ondansetron HCl 4 mg 04/22/19 22:05 Zofran IV Q8H PRN Nausea And Vomiting Sodium Chloride 10 ml 04/23/19 10:00 Sodium Chloride Flush Syringe 10 Ml IV BID BRAXTON Sodium Chloride 10 ml 04/22/19 22:05 Sodium Chloride Flush Syringe 10 Ml IV PRN PRN LINE FLUSH
--- NOTE | 2019-04-23 09:28 | Progress Note ---
Assessment and Plan Assessment and plan: Acute kidney injury Improving Cr 1.5 now Nephrology following Acute rhabdomyolysis. cont iv fluids Dehydration Continue iv fluids Leukocytosis. Monitor Sepsis unlikely Hypokalemia. Replace Check Mg level lactic acidosis likely due to strenous exercise History of cerebral aneurysm repair Full code status L History Interval history: Gen weakness improved Muscle aches Ran 6.2 miles marathon without drinking water. Hospitalist Physical - Physical exam Narrative exam: Gen: Not in acute distress, lying in bed, HEENT: Normocephalic, atraumatic Neck: supple, no JVD Heart: S1 and S2 reg, no murmurs, rubs or gallop Lungs: Clear, no crackles, no wheeze Abd: soft, non tender, non distended, normal BS Ext: No edema, no clubbing, no cyanosis, Neuro: Awake,alert, moves all ext, non focal - Constitutional Vitals: Temp Pulse Resp BP Pulse Ox 98.3 F 72 18 114/77 97 04/23/19 02:25 04/23/19 07:37 04/23/19 07:37 04/23/19 07:37 04/23/19 07:37 Results - Labs CBC & Chem 7: 04/23/19 05:08 04/23/19 05:08 Labs: Laboratory Last Values WBC 18.0 K/mm3 (4.5-11.0) H 04/23/19 05:08 RBC 4.05 M/mm3 (3.65-5.03) 04/23/19 05:08 Hgb 12.1 gm/dl (11.8-15.2) 04/23/19 05:08 Hct 35.7 % (35.5-45.6) D 04/23/19 05:08 MCV 88 fl (84-94) 04/23/19 05:08 MCH 30 pg (28-32) 04/23/19 05:08 MCHC 34 % (32-34) 04/23/19 05:08 RDW 14.9 % (13.2-15.2) 04/23/19 05:08 Plt Count 193 K/mm3 (140-440) 04/23/19 05:08 Lymph % (Auto) 5.0 % (13.4-35.0) L 04/23/19 05:08 [place] % (Auto) 7.9 % (0.0-7.3) H 04/23/19 05:08 Eos % (Auto) 0.0 % (0.0-4.3) 04/23/19 05:08 Baso % (Auto) 0.1 % (0.0-1.8) 04/23/19 05:08 Lymph # 0.9 K/mm3 (1.2-5.4) L 04/23/19 05:08 [place] # 1.4 K/mm3 (0.0-0.8) H 04/23/19 05:08 Eos # 0.0 K/mm3 (0.0-0.4) 04/23/19 05:08 Baso # 0.0 K/mm3 (0.0-0.1) 04/23/19 05:08 Seg Neutrophils % 87.0 % (40.0-70.0) H 04/23/19 05:08 Seg Neutrophils # 15.6 K/mm3 (1.8-7.7) H 04/23/19 05:08 PT 14.7 Sec. (12.2-14.9) 04/22/19 07:52 INR 1.18 (0.87-1.13) H 04/22/19 07:52 POC ABG pH 7.380 (7.35-7.45) 04/22/19 10:41 POC ABG pO2 290 (80-105) H 04/22/19 10:41 POC ABG HCO3 17.5 (22-26 mml/L) 04/22/19 10:41 POC ABG Total CO2 18 (23-27mmol/L) 04/22/19 10:41 POC ABG O2 Sat 100 04/22/19 10:41 POC ABG Base Excess -8 ((-2) - (+3)mmol/L) 04/22/19 10:41 100 % 04/22/19 10:41 Sodium 140 mmol/L (137-145) 04/23/19 05:08 Sodium 141 mmol/L (137-145) D 04/23/19 05:08 Potassium 3.5 mmol/L (3.6-5.0) L 04/23/19 05:08 Potassium 3.5 mmol/L (3.6-5.0) L 04/23/19 05:08 Chloride 108.0 mmol/L (98-107) H 04/23/19 05:08 Chloride 108.3 mmol/L (98-107) H 04/23/19 05:08 Carbon Dioxide 21 mmol/L (22-30) L 04/23/19 05:08 Carbon Dioxide 21 mmol/L (22-30) L 04/23/19 05:08 14 mmol/L 04/23/19 05:08 16 mmol/L 04/23/19 05:08 BUN 26 mg/dL (9-20) H 04/23/19 05:08 BUN 26 mg/dL (9-20) H 04/23/19 05:08 1.5 mg/dL (0.8-1.5) 04/23/19 05:08 1.5 mg/dL (0.8-1.5) D 04/23/19 05:08 Estimated GFR 57 ml/min 04/23/19 05:08 Estimated GFR 57 ml/min 04/23/19 05:08 17 % 04/23/19 05:08 17 % 04/23/19 05:08 Glucose 185 mg/dL (75-100) H 04/23/19 05:08 Glucose 185 mg/dL (75-100) H 04/23/19 05:08 5.6 % (4-6) 04/22/19 23:38 Lactic Acid 2.60 mmol/L (0.7-2.0) H* 04/23/19 07:50 Calcium 8.6 mg/dL (8.4-10.2) 04/23/19 05:08 Calcium 8.6 mg/dL (8.4-10.2) D 04/23/19 05:08 Magnesium 3.20 mg/dL (1.7-2.3) H 04/22/19 07:52 0.90 mg/dL (0.1-1.2) 04/23/19 05:08 AST 115 units/L (5-40) H 04/23/19 05:08 ALT 37 units/L (7-56) 04/23/19 05:08 77 units/L (35-129) 04/23/19 05:08 47.0 umol/L (25-60) 04/22/19 07:52 6633 units/L (55-170) H 04/23/19 05:08 0.029 ng/mL (0.00-0.029) 04/22/19 07:52 7.0 g/dL (6.3-8.2) 04/23/19 05:08 3.6 g/dL (3.9-5) L 04/23/19 05:08 1.1 % 04/23/19 05:08 TSH 2.260 mlU/mL (0.270-4.200) 04/22/19 07:52 Free T4 1.51 ng/dL (0.76-1.46) H 04/22/19 07:52 Yellow (Yellow) 04/22/19 10:03 Slightly-cloudy (Clear) 04/22/19 10:03 5.0 (5.0-7.0) 04/22/19 10:03 Ur Specific [place] 1.019 (1.003-1.030) 04/22/19 10:03 30 mg/dl mg/dL (Negative) 04/22/19 10:03 Neg mg/dL (Negative) 04/22/19 10:03 Tr mg/dL (Negative) 04/22/19 10:03 Lg (Negative) 04/22/19 10:03 Neg (Negative) 04/22/19 10:03 Neg (Negative) 04/22/19 10:03 < 2.0 mg/dL (<2.0) 04/22/19 10:03 Ur Leukocyte Esterase Neg (Negative) 04/22/19 10:03 4.0 /HPF (0.0-6.0) 04/22/19 10:03 3.0 /HPF (0.0-6.0) 04/22/19 10:03 U Epithel Cells (Auto) 1.0 /HPF (0-13.0) 04/22/19 10:03 1+ /HPF (Negative) 04/22/19 10:03 Hyaline Casts 1 /LPF 04/22/19 10:03 Few /HPF 04/22/19 10:03 Salicylates < 0.3 mg/dL (2.8-20.0) L 04/22/19 07:52 Acetaminophen < 5.0 ug/mL (10.0-30.0) L 04/22/19 07:52 Plasma/Serum Alcohol < 0.01 % (0-0.07) 04/22/19 07:52 Active Medications - Current Medications Current Medications: Generic Name Dose Route Start Last Admin Trade Name Lola PRN Reason Stop Dose Admin Acetaminophen 650 mg 04/22/19 22:05 Tylenol PO Q4H PRN Pain MILD(1-3)/Fever >100.5/MATHIS Famotidine 10 mg 04/23/19 10:00 Pepcid IV BID BRAXTON Heparin Sodium (Porcine) 5,000 unit 04/22/19 22:15 04/22/19 23:25 Heparin SUB-Q 5,000 unit Q12HR BRAXTON Administration Hydromorphone HCl 0.5 mg 04/22/19 22:05 Dilaudid IV Q3H PRN Pain , Severe (7-10) Dextrose 1,000 mls @ 125 mls/hr 04/22/19 23:00 04/22/19 23:25 D5w IV 125 mls/hr DIRECT BRAXTON Administration Ceftriaxone Sodium 1 gm in 50 mls @ 100 mls/hr 04/23/19 10:00 Rocephin/Ns 1 Gm/50 Ml IV Q24HR BRAXTON Protocol Metoclopramide HCl 5 mg 04/22/19 22:21 Reglan IV Q6H PRN Nausea And Vomiting Ondansetron HCl 4 mg 04/22/19 22:05 Zofran IV Q8H PRN Nausea And Vomiting Sodium Chloride 10 ml 04/23/19 10:00 Sodium Chloride Flush Syringe 10 Ml IV BID BRAXTON Sodium Chloride 10 ml 04/22/19 22:05 Sodium Chloride Flush Syringe 10 Ml IV PRN PRN LINE FLUSH
[2019-04-23] MEDS: HEPARIN SUB-Q SCH ×2 (11:18→21:44)
[2019-04-23] MEDS: ROCEPHIN/NS 1 GM/50 ML 1 GM/50 ML BAG IV SCH (11:19)
[2019-04-23] MEDS: SODIUM CHLORIDE FLUSH SYRINGE 10 ML IV SCH ×2 (11:20→21:44)
[2019-04-23] MEDS: PEPCID IV SCH ×2 (11:35→21:44)
[2019-04-23] MEDS: D5W 1,000 ML IV SCH ×2 (12:22→21:05)
[2019-04-24 04:38] LABS: Hematocrit 37.8 % (35.5-45.6); Hemoglobin 12.7 gm/dl (11.8-15.2); Mean Corpuscular HGB Conc 34 % (32-34); Mean Corpuscular Volume 89 fl (84-94); Platelet Count 188 K/mm3 (140-440); Red Blood Count 4.23 M/mm3 (3.65-5.03); Red Cell Distribution Width 14.5 % (13.2-15.2)
[2019-04-24 05:03] LABS: BUN/Creatinine Ratio 17; Blood Urea Nitrogen 20 mg/dL (9-20); Calcium 8.8 mg/dL (8.4-10.2); Hemolysis Index 9
[2019-04-24] MEDS: D5W 1,000 ML IV SCH ×3 (05:57→22:31)
--- NOTE | 2019-04-24 09:31 | Progress Note ---
Subjective Interval history: Patient was seen today for follow-up, regarding multiple renal related issues Events of 24 hours were noted Feels much better wants to go home Patient denies any complaints of chest pain pressure or shortness of breath Interdisciplinary Notes were also reviewed from past 24 hours Vitals labs intake output medications: Reviewed Past medical history: Reviewed Allergies: Reviewed Social history: Reviewed Family history: Reviewed Physical examination Gen.: No acute distress HEENT: Mild pallor nor icterus no uremic order Neck: Supple without any mass or JVD Chest: Clear to auscultation anteriorly Heart: Regular rate and rhythm S1 and S2 heard Abdomen: Soft nontender no suprapubic fullness no masses no renal bruit Extremity: Edema , no peripheral cyanosis Skin: No petechial rashes dry skin Assessment and plan Acute kidney injury: Currently in remission creatinine is 1.2 Metabolic acidosis currently doing much better bicarbonate has improved to 23 has had lactic acidosis which has normalized Hypokalemia: Mild, place and follow Hypertension: Stable, bradycardia: Monitor and follow patient is currently not on any drug that would quadrant bradycardia If blood pressure goes up he can be restarted on amlodipine but definitely hold off hydrochlorothiazide and lisinopril which caused dehydration and acute renal failure We'll continue to follow and make recommendation from renal standpoint Objective - Vital Signs Vital signs: Vital Signs - 12hr 04/23/19 04/24/19 04/24/19 23:23 03:39 03:58 Temperature 98.3 F 97 F L Pulse Rate 53 L 56 L Respiratory 16 76 H Rate Blood Pressure 139/92 97/60 O2 Sat by Pulse 98 96 Oximetry 04/24/19 07:17 Temperature 98.1 F Pulse Rate 45 L Respiratory 18 Rate Blood Pressure 132/85 O2 Sat by Pulse 97 Oximetry - Lab 04/24/19 03:13 04/24/19 03:13 Most recent lab results Calcium 8.8 mg/dL (8.4-10.2) 04/24/19 03:13 Phosphorus 2.80 mg/dL (2.5-4.5) D 04/24/19 03:13 Magnesium 1.90 mg/dL (1.7-2.3) 04/23/19 11:25 Medications & Allergies - Medications Allergies/Adverse Reactions: Allergies No Known Allergies Allergy (Unverified 04/22/19 07:45) Home Medications: Home Medications Medication Instructions Recorded Confirmed Last Taken Type Hydrochlorothiazide 25 mg PO DAILY 04/22/19 04/22/19 Unknown History Lisinopril 20 mg PO DAILY 04/22/19 04/22/19 Unknown History amLODIPine 10 mg PO DAILY 04/22/19 04/22/19 Unknown History Active Medications: Generic Name Dose Route Start Last Admin Trade Name Freq PRN Reason Stop Dose Admin Acetaminophen 650 mg 04/22/19 22:05 Tylenol PO Q4H PRN Pain MILD(1-3)/Fever >100.5/MATHIS Famotidine 10 mg 04/23/19 10:00 04/23/19 21:44 Pepcid IV 10 mg BID BRAXTON Administration Heparin Sodium (Porcine) 5,000 unit 04/22/19 22:15 04/23/19 21:44 Heparin SUB-Q 5,000 unit Q12HR BRAXTON Administration Hydromorphone HCl 0.5 mg 04/22/19 22:05 Dilaudid IV Q3H PRN Pain , Severe (7-10) Dextrose 1,000 mls @ 125 mls/hr 04/22/19 23:00 04/24/19 05:57 D5w IV 125 mls/hr DIRECT BRAXTON Administration Ceftriaxone Sodium 1 gm in 50 mls @ 100 mls/hr 04/23/19 10:00 04/23/19 18:21 Rocephin/Ns 1 Gm/50 Ml IV Infused Q24HR BRAXTON Infusion Protocol Metoclopramide HCl 5 mg 04/22/19 22:21 Reglan IV Q6H PRN Nausea And Vomiting Ondansetron HCl 4 mg 04/22/19 22:05 Zofran IV Q8H PRN Nausea And Vomiting Sodium Chloride 10 ml 04/23/19 10:00 04/23/19 21:44 Sodium Chloride Flush Syringe 10 Ml IV 10 ml BID BRAXTON Administration Sodium Chloride 10 ml 04/22/19 22:05 Sodium Chloride Flush Syringe 10 Ml IV PRN PRN LINE FLUSH
[2019-04-24] MEDS ORDERED: K-DUR PO ONE (10:00)
[2019-04-24] MEDS: ROCEPHIN/NS 1 GM/50 ML 1 GM/50 ML BAG IV SCH (10:20)
[2019-04-24] MEDS: PEPCID IV SCH ×2 (10:21→22:23)
[2019-04-24] MEDS: HEPARIN SUB-Q SCH ×2 (10:24→22:30)
[2019-04-24] MEDS: SODIUM CHLORIDE FLUSH SYRINGE 10 ML IV SCH ×2 (10:50→22:23)
--- NOTE | 2019-04-24 16:48 | Progress Note ---
Assessment and Plan Assessment and plan: Acute kidney injury Improving Cr 1.2 now Nephrology following Acute rhabdomyolysis. cont iv fluids Creatinine kinase 6065 Dehydration Continue iv fluids Leukocytosis. Monitor Sepsis unlikely Hypokalemia. Replace Check Mg level lactic acidosis due to strenous exercise. No sepsis SIRS with leukocytosis, tachycardia History of cerebral aneurysm repair Full code status L History Interval history: Gen weakness improved Muscle aches Ran 6.2 miles marathon without drinking water. Hospitalist Physical - Physical exam Narrative exam: Gen: Not in acute distress, lying in bed, obese HEENT: Normocephalic, atraumatic Neck: supple, no JVD Heart: S1 and S2 reg, no murmurs, rubs or gallop Lungs: Clear, no crackles, no wheeze Abd: soft, non tender, non distended, normal BS Ext: No edema, no clubbing, no cyanosis, Neuro: Awake,alert, moves all ext, non focal - Constitutional Vitals: Temp Pulse Resp BP Pulse Ox 98.3 F 63 18 127/86 95 04/24/19 13:51 04/24/19 13:51 04/24/19 13:51 04/24/19 13:51 04/24/19 13:51 Results - Labs CBC & Chem 7: 04/24/19 03:13 04/24/19 03:13 Labs: Laboratory Last Values WBC 10.9 K/mm3 (4.5-11.0) 04/24/19 03:13 RBC 4.23 M/mm3 (3.65-5.03) 04/24/19 03:13 Hgb 12.7 gm/dl (11.8-15.2) 04/24/19 03:13 Hct 37.8 % (35.5-45.6) 04/24/19 03:13 MCV 89 fl (84-94) 04/24/19 03:13 MCH 30 pg (28-32) 04/24/19 03:13 MCHC 34 % (32-34) 04/24/19 03:13 RDW 14.5 % (13.2-15.2) 04/24/19 03:13 Plt Count 188 K/mm3 (140-440) 04/24/19 03:13 Lymph % (Auto) 5.0 % (13.4-35.0) L 04/23/19 05:08 [place] % (Auto) 7.9 % (0.0-7.3) H 04/23/19 05:08 Eos % (Auto) 0.0 % (0.0-4.3) 04/23/19 05:08 Baso % (Auto) 0.1 % (0.0-1.8) 04/23/19 05:08 Lymph # 0.9 K/mm3 (1.2-5.4) L 04/23/19 05:08 [place] # 1.4 K/mm3 (0.0-0.8) H 04/23/19 05:08 Eos # 0.0 K/mm3 (0.0-0.4) 04/23/19 05:08 Baso # 0.0 K/mm3 (0.0-0.1) 04/23/19 05:08 Seg Neutrophils % 87.0 % (40.0-70.0) H 04/23/19 05:08 Seg Neutrophils # 15.6 K/mm3 (1.8-7.7) H 04/23/19 05:08 PT 14.7 Sec. (12.2-14.9) 04/22/19 07:52 INR 1.18 (0.87-1.13) H 04/22/19 07:52 POC ABG pH 7.380 (7.35-7.45) 04/22/19 10:41 POC ABG pO2 290 (80-105) H 04/22/19 10:41 POC ABG HCO3 17.5 (22-26 mml/L) 04/22/19 10:41 POC ABG Total CO2 18 (23-27mmol/L) 04/22/19 10:41 POC ABG O2 Sat 100 04/22/19 10:41 POC ABG Base Excess -8 ((-2) - (+3)mmol/L) 04/22/19 10:41 100 % 04/22/19 10:41 Sodium 144 mmol/L (137-145) 04/24/19 03:13 Potassium 3.3 mmol/L (3.6-5.0) L 04/24/19 03:13 Chloride 109.7 mmol/L (98-107) H 04/24/19 03:13 Carbon Dioxide 23 mmol/L (22-30) 04/24/19 03:13 15 mmol/L 04/24/19 03:13 BUN 20 mg/dL (9-20) 04/24/19 03:13 1.2 mg/dL (0.8-1.5) 04/24/19 03:13 Estimated GFR > 60 ml/min 04/24/19 03:13 17 % 04/24/19 03:13 Glucose 119 mg/dL (75-100) H 04/24/19 03:13 5.6 % (4-6) 04/22/19 23:38 Lactic Acid 1.80 mmol/L (0.7-2.0) 04/23/19 11:45 Calcium 8.8 mg/dL (8.4-10.2) 04/24/19 03:13 Phosphorus 2.80 mg/dL (2.5-4.5) D 04/24/19 03:13 Magnesium 1.90 mg/dL (1.7-2.3) 04/23/19 11:25 0.90 mg/dL (0.1-1.2) 04/23/19 05:08 AST 115 units/L (5-40) H 04/23/19 05:08 ALT 37 units/L (7-56) 04/23/19 05:08 77 units/L (35-129) 04/23/19 05:08 47.0 umol/L (25-60) 04/22/19 07:52 6065 units/L (55-170) H 04/24/19 03:13 0.029 ng/mL (0.00-0.029) 04/22/19 07:52 7.0 g/dL (6.3-8.2) 04/23/19 05:08 3.6 g/dL (3.9-5) L 04/23/19 05:08 1.1 % 04/23/19 05:08 TSH 2.260 mlU/mL (0.270-4.200) 04/22/19 07:52 Free T4 1.51 ng/dL (0.76-1.46) H 04/22/19 07:52 Yellow (Yellow) 04/22/19 10:03 Slightly-cloudy (Clear) 04/22/19 10:03 5.0 (5.0-7.0) 04/22/19 10:03 Ur Specific [place] 1.019 (1.003-1.030) 04/22/19 10:03 30 mg/dl mg/dL (Negative) 04/22/19 10:03 Neg mg/dL (Negative) 04/22/19 10:03 Tr mg/dL (Negative) 04/22/19 10:03 Lg (Negative) 04/22/19 10:03 Neg (Negative) 04/22/19 10:03 Neg (Negative) 04/22/19 10:03 < 2.0 mg/dL (<2.0) 04/22/19 10:03 Ur Leukocyte Esterase Neg (Negative) 04/22/19 10:03 4.0 /HPF (0.0-6.0) 04/22/19 10:03 3.0 /HPF (0.0-6.0) 04/22/19 10:03 U Epithel Cells (Auto) 1.0 /HPF (0-13.0) 04/22/19 10:03 1+ /HPF (Negative) 04/22/19 10:03 Hyaline Casts 1 /LPF 04/22/19 10:03 Few /HPF 04/22/19 10:03 Salicylates < 0.3 mg/dL (2.8-20.0) L 04/22/19 07:52 Acetaminophen < 5.0 ug/mL (10.0-30.0) L 04/22/19 07:52 Plasma/Serum Alcohol < 0.01 % (0-0.07) 04/22/19 07:52 Active Medications - Current Medications Current Medications: Generic Name Dose Route Start Last Admin Trade Name Freq PRN Reason Stop Dose Admin Acetaminophen 650 mg 04/22/19 22:05 Tylenol PO Q4H PRN Pain MILD(1-3)/Fever >100.5/MATHIS Famotidine 10 mg 04/23/19 10:00 04/24/19 10:21 Pepcid IV 10 mg BID BRAXTON Administration Heparin Sodium (Porcine) 5,000 unit 04/22/19 22:15 04/24/19 10:24 Heparin SUB-Q 5,000 unit Q12HR BRAXTON Administration Hydromorphone HCl 0.5 mg 04/22/19 22:05 Dilaudid IV Q3H PRN Pain , Severe (7-10) Dextrose 1,000 mls @ 125 mls/hr 04/22/19 23:00 04/24/19 05:57 D5w IV 125 mls/hr DIRECT BRAXTON Administration Ceftriaxone Sodium 1 gm in 50 mls @ 100 mls/hr 04/23/19 10:00 04/24/19 10:20 Rocephin/Ns 1 Gm/50 Ml IV 100 mls/hr Q24HR BRAXTON Administration Protocol Metoclopramide HCl 5 mg 04/22/19 22:21 Reglan IV Q6H PRN Nausea And Vomiting Ondansetron HCl 4 mg 04/22/19 22:05 Zofran IV Q8H PRN Nausea And Vomiting Sodium Chloride 10 ml 04/23/19 10:00 04/24/19 10:50 Sodium Chloride Flush Syringe 10 Ml IV 10 ml BID BRAXTON Administration Sodium Chloride 10 ml 04/22/19 22:05 Sodium Chloride Flush Syringe 10 Ml IV PRN PRN LINE FLUSH
[2019-04-25 05:13] LABS: Hematocrit 37.3 % (35.5-45.6); Hemoglobin 12.7 gm/dl (11.8-15.2); Mean Corpuscular HGB Conc 34 % (32-34); Mean Corpuscular Volume 89 fl (84-94); Platelet Count 181 K/mm3 (140-440); Red Blood Count 4.21 M/mm3 (3.65-5.03); Red Cell Distribution Width 14.8 % (13.2-15.2)
[2019-04-25 05:39] LABS: BUN/Creatinine Ratio 15; Blood Urea Nitrogen 16 mg/dL (9-20); Calcium 8.8 mg/dL (8.4-10.2); Hemolysis Index 5
[2019-04-25] MEDS: PEPCID IV SCH (09:19)
[2019-04-25] MEDS: ROCEPHIN/NS 1 GM/50 ML 1 GM/50 ML BAG IV SCH (09:19)
[2019-04-25] MEDS: SODIUM CHLORIDE FLUSH SYRINGE 10 ML IV SCH ×2 (09:20→21:57)
[2019-04-25] MEDS: HEPARIN SUB-Q SCH ×2 (09:22→21:56)
[2019-04-25] MEDS: D5W 1,000 ML IV SCH ×3 (10:21→23:15)
--- NOTE | 2019-04-25 12:30 | Progress Note ---
Assessment and Plan Assessment and plan: Patient is 68 yo ran a marathon about 6.2 miles without drinking andny water or fluids and became confused, generalized weakness, hypoxic so brought to Ed. he was diagnosed with acute kidney injury, rhabdomyolysis , dehydration. He was started on IV fluids and placed on Empiric antibiotics because he had leukocytosis, Lactic acidosis. He has improved , renal function is about normal, rhabdomyolysis improving. Sepsis ruled out so antibiotics discontinued. Disposition to discharge in a few days when rhabdomyolysis much improved. Acute kidney injury Improving Cr 1.1 now Nephrology following Acute rhabdomyolysis. cont iv fluids Creatinine kinase improving 2444 today Acute metabolic encephalopathy Resolved Dehydration Continue iv fluids Leukocytosis. Monitor Sepsis unlikely Hypokalemia. Replace Check Mg level lactic acidosis due to strenous exercise. No sepsis SIRS with leukocytosis, tachycardia History of cerebral aneurysm repair Full code status History Interval history: Gen weakness improved Muscle aches Ran 6.2 miles marathon without drinking water. Hospitalist Physical - Physical exam Narrative exam: Gen: Not in acute distress, lying in bed, obese HEENT: Normocephalic, atraumatic Neck: supple, no JVD Heart: S1 and S2 reg, no murmurs, rubs or gallop Lungs: Clear, no crackles, no wheeze Abd: soft, non tender, non distended, normal BS Ext: No edema, no clubbing, no cyanosis, Neuro: Awake,alert, moves all ext, non focal - Constitutional Vitals: Temp Pulse Resp BP Pulse Ox 98.7 F 60 18 124/83 100 04/25/19 07:51 04/25/19 09:39 04/25/19 09:39 04/25/19 07:51 04/25/19 09:39 Results - Labs CBC & Chem 7: 04/25/19 04:53 04/25/19 04:53 Labs: Laboratory Last Values WBC 5.7 K/mm3 (4.5-11.0) 04/25/19 04:53 RBC 4.21 M/mm3 (3.65-5.03) 04/25/19 04:53 Hgb 12.7 gm/dl (11.8-15.2) 04/25/19 04:53 Hct 37.3 % (35.5-45.6) 04/25/19 04:53 MCV 89 fl (84-94) 04/25/19 04:53 MCH 30 pg (28-32) 04/25/19 04:53 MCHC 34 % (32-34) 04/25/19 04:53 RDW 14.8 % (13.2-15.2) 04/25/19 04:53 Plt Count 181 K/mm3 (140-440) 04/25/19 04:53 Lymph % (Auto) 5.0 % (13.4-35.0) L 04/23/19 05:08 [place] % (Auto) 7.9 % (0.0-7.3) H 04/23/19 05:08 Eos % (Auto) 0.0 % (0.0-4.3) 04/23/19 05:08 Baso % (Auto) 0.1 % (0.0-1.8) 04/23/19 05:08 Lymph # 0.9 K/mm3 (1.2-5.4) L 04/23/19 05:08 [place] # 1.4 K/mm3 (0.0-0.8) H 04/23/19 05:08 Eos # 0.0 K/mm3 (0.0-0.4) 04/23/19 05:08 Baso # 0.0 K/mm3 (0.0-0.1) 04/23/19 05:08 Seg Neutrophils % 87.0 % (40.0-70.0) H 04/23/19 05:08 Seg Neutrophils # 15.6 K/mm3 (1.8-7.7) H 04/23/19 05:08 PT 14.7 Sec. (12.2-14.9) 04/22/19 07:52 INR 1.18 (0.87-1.13) H 04/22/19 07:52 POC ABG pH 7.380 (7.35-7.45) 04/22/19 10:41 POC ABG pO2 290 (80-105) H 04/22/19 10:41 POC ABG HCO3 17.5 (22-26 mml/L) 04/22/19 10:41 POC ABG Total CO2 18 (23-27mmol/L) 04/22/19 10:41 POC ABG O2 Sat 100 04/22/19 10:41 POC ABG Base Excess -8 ((-2) - (+3)mmol/L) 04/22/19 10:41 100 % 04/22/19 10:41 Sodium 142 mmol/L (137-145) 04/25/19 04:53 Potassium 3.9 mmol/L (3.6-5.0) 04/25/19 04:53 Chloride 110.9 mmol/L (98-107) H 04/25/19 04:53 Carbon Dioxide 21 mmol/L (22-30) L 04/25/19 04:53 14 mmol/L 04/25/19 04:53 BUN 16 mg/dL (9-20) 04/25/19 04:53 1.1 mg/dL (0.8-1.5) 04/25/19 04:53 Estimated GFR > 60 ml/min 04/25/19 04:53 15 % 04/25/19 04:53 Glucose 113 mg/dL (75-100) H 04/25/19 04:53 5.6 % (4-6) 04/22/19 23:38 Lactic Acid 1.80 mmol/L (0.7-2.0) 04/23/19 11:45 Calcium 8.8 mg/dL (8.4-10.2) 04/25/19 04:53 Phosphorus 2.80 mg/dL (2.5-4.5) D 04/24/19 03:13 Magnesium 1.90 mg/dL (1.7-2.3) 04/23/19 11:25 0.90 mg/dL (0.1-1.2) 04/23/19 05:08 AST 115 units/L (5-40) H 04/23/19 05:08 ALT 37 units/L (7-56) 04/23/19 05:08 77 units/L (35-129) 04/23/19 05:08 47.0 umol/L (25-60) 04/22/19 07:52 2444 units/L (55-170) H 04/25/19 04:53 0.029 ng/mL (0.00-0.029) 04/22/19 07:52 7.0 g/dL (6.3-8.2) 04/23/19 05:08 3.6 g/dL (3.9-5) L 04/23/19 05:08 1.1 % 04/23/19 05:08 TSH 2.260 mlU/mL (0.270-4.200) 04/22/19 07:52 Free T4 1.51 ng/dL (0.76-1.46) H 04/22/19 07:52 Yellow (Yellow) 04/22/19 10:03 Slightly-cloudy (Clear) 04/22/19 10:03 5.0 (5.0-7.0) 04/22/19 10:03 Ur Specific [place] 1.019 (1.003-1.030) 04/22/19 10:03 30 mg/dl mg/dL (Negative) 04/22/19 10:03 Neg mg/dL (Negative) 04/22/19 10:03 Tr mg/dL (Negative) 04/22/19 10:03 Lg (Negative) 04/22/19 10:03 Neg (Negative) 04/22/19 10:03 Neg (Negative) 04/22/19 10:03 < 2.0 mg/dL (<2.0) 04/22/19 10:03 Ur Leukocyte Esterase Neg (Negative) 04/22/19 10:03 4.0 /HPF (0.0-6.0) 04/22/19 10:03 3.0 /HPF (0.0-6.0) 04/22/19 10:03 U Epithel Cells (Auto) 1.0 /HPF (0-13.0) 04/22/19 10:03 1+ /HPF (Negative) 04/22/19 10:03 Hyaline Casts 1 /LPF 04/22/19 10:03 Few /HPF 04/22/19 10:03 Salicylates < 0.3 mg/dL (2.8-20.0) L 04/22/19 07:52 Acetaminophen < 5.0 ug/mL (10.0-30.0) L 04/22/19 07:52 Plasma/Serum Alcohol < 0.01 % (0-0.07) 04/22/19 07:52 Active Medications - Current Medications Current Medications: Generic Name Dose Route Start Last Admin Trade Name Freq PRN Reason Stop Dose Admin Acetaminophen 650 mg 04/22/19 22:05 Tylenol PO Q4H PRN Pain MILD(1-3)/Fever >100.5/MATHIS Famotidine 10 mg 04/23/19 10:00 04/25/19 09:19 Pepcid IV 10 mg BID BRAXTON Administration Heparin Sodium (Porcine) 5,000 unit 04/22/19 22:15 04/25/19 09:22 Heparin SUB-Q 5,000 unit Q12HR BRAXTON Administration Hydromorphone HCl 0.5 mg 04/22/19 22:05 Dilaudid IV Q3H PRN Pain , Severe (7-10) Dextrose 1,000 mls @ 125 mls/hr 04/22/19 23:00 04/25/19 10:21 D5w IV 125 mls/hr DIRECT BRAXTON Administration Metoclopramide HCl 5 mg 04/22/19 22:21 Reglan IV Q6H PRN Nausea And Vomiting Ondansetron HCl 4 mg 04/22/19 22:05 Zofran IV Q8H PRN Nausea And Vomiting Sodium Chloride 10 ml 04/23/19 10:00 04/25/19 09:20 Sodium Chloride Flush Syringe 10 Ml IV 10 ml BID BRAXTON Administration Sodium Chloride 10 ml 04/22/19 22:05 Sodium Chloride Flush Syringe 10 Ml IV PRN PRN LINE FLUSH
[2019-04-25] MEDS: PEPCID PO SCH (21:56)
[2019-04-26 05:28] LABS: Hematocrit 39.7 % (35.5-45.6); Hemoglobin 13.4 gm/dl (11.8-15.2); Mean Corpuscular HGB Conc 34 % (32-34); Mean Corpuscular Volume 89 fl (84-94); Platelet Count 186 K/mm3 (140-440); Red Blood Count 4.47 M/mm3 (3.65-5.03); Red Cell Distribution Width 14.7 % (13.2-15.2)
[2019-04-26 05:41] LABS: Hemolysis Index 0
[2019-04-26 05:55] LABS: BUN/Creatinine Ratio 14; Blood Urea Nitrogen 15 mg/dL (9-20)
--- NOTE | 2019-04-26 08:13 | Progress Note ---
Assessment and Plan Assessment and plan: Patient is 68 yo ran a marathon about 6.2 miles without drinking andny water or fluids and became confused, generalized weakness, hypoxic so brought to Ed. he was diagnosed with acute kidney injury, rhabdomyolysis , dehydration. He was started on IV fluids and placed on Empiric antibiotics because he had leukocytosis, Lactic acidosis. He has improved , renal function is about normal, rhabdomyolysis improving. Sepsis ruled out so antibiotics discontinued. Disposition to discharge in a few days when rhabdomyolysis much improved. SEVERO due to vasomotor nephropathy Improving Cr 1.1 now Nephrology following Acute rhabdomyolysis. cont iv fluids Creatinine kinase improving 2444 today Acute metabolic encephalopathy Resolved Dehydration Continue iv fluids Leukocytosis. Monitor Sepsis unlikely Hypokalemia. Replace Check Mg level lactic acidosis due to strenous exercise. No sepsis SIRS with leukocytosis, tachycardia History of cerebral aneurysm repair Full code status Hospitalist Physical - Constitutional Vitals: Temp Pulse Resp BP Pulse Ox 97.9 F 73 24 134/91 97 04/26/19 01:57 04/26/19 04:47 04/26/19 01:57 04/26/19 01:57 04/26/19 07:40 Results - Labs CBC & Chem 7: 04/26/19 05:06 04/26/19 05:06 Labs: Laboratory Last Values WBC 5.8 K/mm3 (4.5-11.0) 04/26/19 05:06 RBC 4.47 M/mm3 (3.65-5.03) 04/26/19 05:06 Hgb 13.4 gm/dl (11.8-15.2) 04/26/19 05:06 Hct 39.7 % (35.5-45.6) 04/26/19 05:06 MCV 89 fl (84-94) 04/26/19 05:06 MCH 30 pg (28-32) 04/26/19 05:06 MCHC 34 % (32-34) 04/26/19 05:06 RDW 14.7 % (13.2-15.2) 04/26/19 05:06 Plt Count 186 K/mm3 (140-440) 04/26/19 05:06 Lymph % (Auto) 5.0 % (13.4-35.0) L 04/23/19 05:08 [place] % (Auto) 7.9 % (0.0-7.3) H 04/23/19 05:08 Eos % (Auto) 0.0 % (0.0-4.3) 04/23/19 05:08 Baso % (Auto) 0.1 % (0.0-1.8) 04/23/19 05:08 Lymph # 0.9 K/mm3 (1.2-5.4) L 04/23/19 05:08 [place] # 1.4 K/mm3 (0.0-0.8) H 04/23/19 05:08 Eos # 0.0 K/mm3 (0.0-0.4) 04/23/19 05:08 Baso # 0.0 K/mm3 (0.0-0.1) 04/23/19 05:08 Seg Neutrophils % 87.0 % (40.0-70.0) H 04/23/19 05:08 Seg Neutrophils # 15.6 K/mm3 (1.8-7.7) H 04/23/19 05:08 PT 14.7 Sec. (12.2-14.9) 04/22/19 07:52 INR 1.18 (0.87-1.13) H 04/22/19 07:52 POC ABG pH 7.380 (7.35-7.45) 04/22/19 10:41 POC ABG pO2 290 (80-105) H 04/22/19 10:41 POC ABG HCO3 17.5 (22-26 mml/L) 04/22/19 10:41 POC ABG Total CO2 18 (23-27mmol/L) 04/22/19 10:41 POC ABG O2 Sat 100 04/22/19 10:41 POC ABG Base Excess -8 ((-2) - (+3)mmol/L) 04/22/19 10:41 100 % 04/22/19 10:41 Sodium 143 mmol/L (137-145) 04/26/19 05:06 Potassium 3.8 mmol/L (3.6-5.0) 04/26/19 05:06 Chloride 111.3 mmol/L (98-107) H 04/26/19 05:06 Carbon Dioxide 21 mmol/L (22-30) L 04/26/19 05:06 15 mmol/L 04/26/19 05:06 BUN 15 mg/dL (9-20) 04/26/19 05:06 1.1 mg/dL (0.8-1.5) 04/26/19 05:06 Estimated GFR > 60 ml/min 04/26/19 05:06 14 % 04/26/19 05:06 Glucose 108 mg/dL (75-100) H 04/26/19 05:06 5.6 % (4-6) 04/22/19 23:38 Lactic Acid 1.80 mmol/L (0.7-2.0) 04/23/19 11:45 Calcium 9.0 mg/dL (8.4-10.2) 04/26/19 05:06 Phosphorus 2.80 mg/dL (2.5-4.5) D 04/24/19 03:13 Magnesium 1.90 mg/dL (1.7-2.3) 04/23/19 11:25 0.90 mg/dL (0.1-1.2) 04/23/19 05:08 AST 115 units/L (5-40) H 04/23/19 05:08 ALT 37 units/L (7-56) 04/23/19 05:08 77 units/L (35-129) 04/23/19 05:08 47.0 umol/L (25-60) 04/22/19 07:52 1361 units/L (55-170) H 04/26/19 05:06 0.029 ng/mL (0.00-0.029) 04/22/19 07:52 7.0 g/dL (6.3-8.2) 04/23/19 05:08 3.6 g/dL (3.9-5) L 04/23/19 05:08 1.1 % 04/23/19 05:08 TSH 2.260 mlU/mL (0.270-4.200) 04/22/19 07:52 Free T4 1.51 ng/dL (0.76-1.46) H 04/22/19 07:52 Yellow (Yellow) 04/22/19 10:03 Slightly-cloudy (Clear) 04/22/19 10:03 5.0 (5.0-7.0) 04/22/19 10:03 Ur Specific [place] 1.019 (1.003-1.030) 04/22/19 10:03 30 mg/dl mg/dL (Negative) 04/22/19 10:03 Neg mg/dL (Negative) 04/22/19 10:03 Tr mg/dL (Negative) 04/22/19 10:03 Lg (Negative) 04/22/19 10:03 Neg (Negative) 04/22/19 10:03 Neg (Negative) 04/22/19 10:03 < 2.0 mg/dL (<2.0) 04/22/19 10:03 Ur Leukocyte Esterase Neg (Negative) 04/22/19 10:03 4.0 /HPF (0.0-6.0) 04/22/19 10:03 3.0 /HPF (0.0-6.0) 04/22/19 10:03 U Epithel Cells (Auto) 1.0 /HPF (0-13.0) 04/22/19 10:03 1+ /HPF (Negative) 04/22/19 10:03 Hyaline Casts 1 /LPF 04/22/19 10:03 Few /HPF 04/22/19 10:03 Salicylates < 0.3 mg/dL (2.8-20.0) L 04/22/19 07:52 Acetaminophen < 5.0 ug/mL (10.0-30.0) L 04/22/19 07:52 Plasma/Serum Alcohol < 0.01 % (0-0.07) 04/22/19 07:52 Active Medications - Current Medications Current Medications: Generic Name Dose Route Start Last Admin Trade Name Jarrellq PRN Reason Stop Dose Admin Acetaminophen 650 mg 04/22/19 22:05 Tylenol PO Q4H PRN Pain MILD(1-3)/Fever >100.5/MATHIS Famotidine 10 mg 04/25/19 22:00 04/25/19 21:56 Pepcid PO 10 mg BID BRAXTON Administration Heparin Sodium (Porcine) 5,000 unit 04/22/19 22:15 04/25/19 21:56 Heparin SUB-Q 5,000 unit Q12HR BRAXTON Administration Hydromorphone HCl 0.5 mg 04/22/19 22:05 Dilaudid IV Q3H PRN Pain , Severe (7-10) Dextrose 1,000 mls @ 125 mls/hr 04/22/19 23:00 04/25/19 23:15 D5w IV 125 mls/hr DIRECT BRAXTON Administration Metoclopramide HCl 5 mg 04/22/19 22:21 Reglan IV Q6H PRN Nausea And Vomiting Ondansetron HCl 4 mg 04/22/19 22:05 Zofran IV Q8H PRN Nausea And Vomiting Sodium Chloride 10 ml 04/23/19 10:00 04/25/19 21:57 Sodium Chloride Flush Syringe 10 Ml IV 10 ml BID BRAXTON Administration Sodium Chloride 10 ml 04/22/19 22:05 Sodium Chloride Flush Syringe 10 Ml IV PRN PRN LINE FLUSH
[2019-04-26] MEDS ORDERED: NACL 0.9% 500 ML 500 ML IV ONE (09:00)
[2019-04-26] MEDS: HEPARIN SUB-Q SCH (09:14)
[2019-04-26] MEDS: PEPCID PO SCH (09:14)
[2019-04-26] MEDS: SODIUM CHLORIDE FLUSH SYRINGE 10 ML IV SCH (09:15)
--- NOTE | 2019-04-26 09:22 | Progress Note ---
Assessment and Plan Impression * Acute kidney injury * Hypernatremia * Rhabdomyolysis * Hypertension * Metabolic acidosis Recommendations * Patient's renal function has improved significantly * Serum sodium is also better. However high normal * Reduce his IV fluid for now. * Patient encouraged to increase his oral fluid intake. * Continue to hold his HUNG inhibitor as well as diuretics for now. * Shall follow him peripherally Subjective Date of service: 04/26/19 Interval history: Patient is comfortable today. Denies any shortness of breath. No nausea , vomiting or diarrhea. Eating well. Objective - Vital Signs Vital signs: Vital Signs - 12hr 04/25/19 04/25/19 04/26/19 22:00 22:55 01:57 Temperature 97.9 F Pulse Rate 73 Respiratory 20 24 Rate Respiratory 20 Rate [ Generalized] Blood Pressure 134/91 O2 Sat by Pulse 96 89 Oximetry 04/26/19 04/26/19 04/26/19 02:00 04:47 07:33 Temperature 98.8 F Pulse Rate 70 73 61 Respiratory 18 Rate Respiratory Rate [ Generalized] Blood Pressure 147/99 O2 Sat by Pulse 92 92 Oximetry 04/26/19 07:40 Temperature Pulse Rate Respiratory Rate Respiratory Rate [ Generalized] Blood Pressure O2 Sat by Pulse 97 Oximetry - General Appearance General appearance: well-developed, well-nourished, appears stated age EENT: PERRL, mucous membranes moist Neck: no JVD, no thyromegaly, no carotid bruit, supple Respiratory: Present: Clear to Ascultation Cardiology: regular, normal heart rate, S1S2, no murmurs Gastrointestinal: normal, normoactive bowel sounds Integumentary: no rash, other (no edema) - Lab 04/26/19 05:06 04/26/19 05:06 Most recent lab results Calcium 9.0 mg/dL (8.4-10.2) 04/26/19 05:06 Phosphorus 2.80 mg/dL (2.5-4.5) D 04/24/19 03:13 Magnesium 1.90 mg/dL (1.7-2.3) 04/23/19 11:25 Medications & Allergies - Medications Allergies/Adverse Reactions: Allergies No Known Allergies Allergy (Unverified 04/22/19 07:45) Home Medications: Home Medications Medication Instructions Recorded Confirmed Last Taken Type Hydrochlorothiazide 25 mg PO DAILY 04/22/19 04/22/19 Unknown History Lisinopril 20 mg PO DAILY 04/22/19 04/22/19 Unknown History amLODIPine 10 mg PO DAILY 04/22/19 04/22/19 Unknown History Active Medications: Generic Name Dose Route Start Last Admin Trade Name Lola PRN Reason Stop Dose Admin Acetaminophen 650 mg 04/22/19 22:05 Tylenol PO Q4H PRN Pain MILD(1-3)/Fever >100.5/MATHIS Famotidine 10 mg 04/25/19 22:00 04/25/19 21:56 Pepcid PO 10 mg BID BRAXTON Administration Heparin Sodium (Porcine) 5,000 unit 04/22/19 22:15 04/25/19 21:56 Heparin SUB-Q 5,000 unit Q12HR BRAXTON Administration Hydromorphone HCl 0.5 mg 04/22/19 22:05 Dilaudid IV Q3H PRN Pain , Severe (7-10) Dextrose 1,000 mls @ 125 mls/hr 04/22/19 23:00 04/25/19 23:15 D5w IV 125 mls/hr DIRECT BRAXTON Administration Sodium Chloride 500 mls @ 999 mls/hr 04/26/19 09:00 Nacl 0.9% 500 Ml IV 04/26/19 09:30 ONCE ONE Metoclopramide HCl 5 mg 04/22/19 22:21 Reglan IV Q6H PRN Nausea And Vomiting Ondansetron HCl 4 mg 04/22/19 22:05 Zofran IV Q8H PRN Nausea And Vomiting Sodium Chloride 10 ml 04/23/19 10:00 04/25/19 21:57 Sodium Chloride Flush Syringe 10 Ml IV 10 ml BID BRAXTON Administration Sodium Chloride 10 ml 04/22/19 22:05 Sodium Chloride Flush Syringe 10 Ml IV PRN PRN LINE FLUSH
--- NOTE | 2019-04-26 09:48 | Discharge Summary ---
Providers - Providers Date of Admission: 04/22/19 11:22 Attending physician: ABDELRAHMAN BILL MD 04/22/19 08:58 Consult to Physician [CONS] Urgent Comment: called office/ leatha Consulting Provider: CECY LARSEN Physician Instructions: Reason For Exam: cassie 04/22/19 09:38 Consult to Physician [CONS] Urgent Comment: spopke to the doctor/ leatha Consulting Provider: CHRIS TOLEDO Physician Instructions: Reason For Exam: ams 04/25/19 09:17 Physical Therapy Evaluation and Treat [CONS] Routine Comment: Reason For Exam: Weakness Hospitalization Reason for admission: ams Condition: Stable Hospital course: Patient is 68 yo ran a marathon about 6.2 miles without drinking andny water or fluids and became confused, generalized weakness, hypoxic so brought to Ed. he was diagnosed with acute kidney injury, rhabdomyolysis , dehydration. He was started on IV fluids and placed on Empiric antibiotics because he had leukocytosis, Lactic acidosis. He has improved , renal function is about normal, rhabdomyolysis improving. Sepsis ruled out so antibiotics discontinued. Patient was treated with IV fluids and Marriage Therapist support with improvement noted and is stable for discharge. He will have repeat study for Creatnine Kinase in 2-3 days. Encouraged hydration prior to and during races CASSIE due to vasomotor nephropathy Acute rhabdomyolysis. Acute metabolic encephalopathy Dehydration Leukocytosis No evidence of spesis Hypokalemia. lactic acidosis due to strenous exercise. No sepsis SIRS with leukocytosis, tachycardia History of cerebral aneurysm repair Disposition: DC-01 TO HOME OR SELFCARE Time spent for discharge: 35 mins Core Measure Documentation - Palliative Care Palliative Care/ Comfort Measures: Not Applicable - Core Measures Any of the following diagnoses?: none Exam - Constitutional Vitals: Temp Pulse Resp BP Pulse Ox 98.8 F 82 18 147/99 97 04/26/19 07:33 04/26/19 09:41 04/26/19 07:33 04/26/19 07:33 04/26/19 07:40 General appearance: Present: no acute distress, well-nourished - EENT Eyes: Present: PERRL, EOM intact ENT: hearing intact, clear oral mucosa - Neck Neck: Present: supple, normal ROM - Respiratory Respiratory effort: normal Respiratory: bilateral: CTA - Cardiovascular Rhythm: regular Heart Sounds: Present: S1 & S2. Absent: systolic murmur - Extremities Extremities: no ischemia, pulses intact, pulses symmetrical, No edema, normal temperature, Full ROM Peripheral Pulses: within normal limits - Abdominal General gastrointestinal: Present: soft, non-tender, non-distended, normal bowel sounds - Integumentary Integumentary: Present: clear, warm, dry - Musculoskeletal Musculoskeletal: strength equal bilaterally - Psychiatric Psychiatric: appropriate mood/affect, intact judgment & insight - Neurologic Neurologic: CNII-XII intact, moves all extremities - Allied Health Allied health notes reviewed: nursing Plan Activity: advance as tolerated, fall precautions Diet: low fat Special Instructions: record daily weights Additional Instructions: Repeat Creatnine Kinase and Basic Metablic Profile in 2-3 days Follow up with: MAXIMINO WESLEY MD [Referring] - 3-5 Days
[2019-04-26 13:38] VITALS: BP 127/92
== END 2019-04-26 19:35 | disposition home or self-care (01) | DRG 682 ==
LOC: ED 07:25 → 2B-ACE 11:22
PROVIDERS: ADMIT Internal Medicine; ATTEND Internal Medicine
PROC: 4A033R1 Measurement of Arterial Saturation, Peripheral, Percutaneous Approach (ICD-10-PCS; principal; 2019-04-22)
DX: N17.0 Acute kidney failure with tubular necrosis (principal); G93.41 Metabolic encephalopathy; J96.91 Respiratory failure, unspecified with hypoxia; M62.82 Rhabdomyolysis; E87.0 Hyperosmolality and hypernatremia; N39.0 Urinary tract infection, site not specified; E87.2 Acidosis; R65.10 Systemic inflammatory response syndrome (SIRS) of non-infectious origin without acute organ dysfunction; I10 Essential (primary) hypertension; E86.0 Dehydration; I71.2 Thoracic aortic aneurysm, without rupture; F03.90 Unspecified dementia, unspecified severity, without behavioral disturbance, psychotic disturbance, mood disturbance, and anxiety; G47.33 Obstructive sleep apnea (adult) (pediatric); N20.0 Calculus of kidney; E87.6 Hypokalemia
CPT/HCPCS: 36415; 70450; 71045; 71250; 74176; 78582; 80048; 80053; 80320; 81001; 82140; 82550; 82803; 83036; 83735; 84100; 84439; 84443; 84484; 85025; 85027; 85610; 87040; 87086; 93005; 93010; 94760; 96365; G0378; A9540; A9558; G0480; J0696; J1644; J2543; J7030; J7040; J7070

== ENCOUNTER 2021-04-10 12:38 | Inpatient (IN) | payer MEDICARE ==
--- NOTE | 2021-04-10 15:05 | Cat Scan Report ---
CT head/brain wo con INDICATION / CLINICAL INFORMATION: 70 years Male; AMS. TECHNIQUE: Routine CT head without contrast. All CT scans at this location are performed using CT dos e reduction for ALARA by means of automated exposure control. COMPARISON: 04/22/2019 FINDINGS: BRAIN / INTRACRANIAL CONTENTS: There is loss of aly/white differentiation in the right parietal temp oral region, most likely representing acute/subacute branch MCA infarct. This finding is not seen on prior exam. Old, small areas of encephalomalacia are seen in the watershed distributions bilaterally, which may b e related to prior ventricular catheter placement. Old, small branch PICA infarcts seen on the right-unchanged from prior. Prior aneurysm coilings seen-one region of coiling is seen in the suprasellar cistern on the right an d a second is noted along the right lateral margin of the brainstem. These findings are unchanged fro m prior. There is a ventricular catheter seen entering the calvarium via a right frontal approach with distal tip seen in the third ventricle, passing through the foramen of [place]. There is also a second ventric ular catheter entering the calvarium via a left posterior parietal approach with distal tip crossing the septum pellucidum and entering the right lateral ventricle. Small focus of calcification is seen along this catheter is well. Findings are not significantly changed from prior. There is no evidence of hydrocephalus. Otherwise, no acute hemorrhage, mass effect, or midline shift. Mild, diffuse cerebral atrophy noted. There are [id number] areas of decreased attenuation in the white matter of the cerebral hemisph eres, as well as the gangliocapsular regions. These are nonspecific findings and may be related to mi croangiopathy (hypertension, diabetes, atherosclerosis), given the patient's age. CRANIOCERVICAL JUNCTION: No significant abnormality. ORBITS: No significant abnormality of visualized orbits. SINUSES / MASTOIDS: Visualized paranasal sinuses and mastoid air cells are essentially clear. ADDITIONAL FINDINGS: None. IMPRESSION: 1. Branch acute/subacute MCA infarct seen on the right, without signs of hemorrhagic transformation. 2. 2 ventricular catheters seen. No signs of hydrocephalus. Signer Name: Tim Mclaughlin MD, III Signed: 04/10/2021 3:01 PM Workstation Name: [id number]
--- NOTE | 2021-04-10 15:13 | XRay Report ---
CHEST 1 VIEW INDICATION: ams COMPARISON: FINDINGS: SUPPORT DEVICES: None. HEART / MEDIASTINUM: No significant abnormality. LUNGS / PLEURA: No significant pulmonary or pleural abnormality. No pneumothorax. ADDITIONAL FINDINGS: IMPRESSION: 1. No acute cardiopulmonary disease Signer Name: Jorge Pelaez MD Signed: 04/10/2021 3:09 PM Workstation Name: [id number]
[2021-04-10 16:28] LABS: Basophils % (Auto) 0.5 % (0.0-1.8); Eosinophils % (Auto) 0.5 % (0.0-4.3); Hematocrit 42.9 % (35.5-45.6); Hemoglobin 14.6 gm/dl (11.8-15.2); Lymphocytes # (Auto) 1.6 K/mm3 (1.2-5.4); Lymphocytes % (Auto) 22.3 % (13.4-35.0); Mean Corpuscular HGB Conc 34 % (32-34); Mean Corpuscular Volume 89 fl (84-94); Monocytes # (Auto) 0.9 K/mm3 (0.0-0.8); Monocytes % (Auto) 12.8 % (0.0-7.3); Platelet Count 235 K/mm3 (140-440); Red Blood Count 4.84 M/mm3 (3.65-5.03); Red Cell Distribution Width 14.6 % (13.2-15.2)
--- NOTE | 2021-04-10 16:42 | Emergency Department Report ---
ED Altered Mental Status HPI - General Chief Complaint: Neuro Symptoms/Deficit Stated Complaint: FATIGUE/HIGH BLOOD PRESSURE PUI?: No Time Seen by Provider: 04/10/21 16:15 Source: patient Mode of arrival: Ambulatory Limitations: No Limitations - History of Present Illness Initial Comments: Patient is a 70-year-old male who presents emergency room with complaints of generalized weakness and confusion. Patient daughter is at bedside to help with the information. Patient states that he is not having any pain. Patient at this time is alert and oriented x2. Patient is oriented to person and place. Daughter states that this is his cognitive baseline but it has times of fluctuating and becoming worse. Daughter states he has been able to walk normally up until 9 AM this morning. MD Complaint: altered mental status, weakness -: Sudden Severity: severe Consistency of Symptoms: waxing and waning Associated Symptoms: malaise, weakness, difficulty walking. denies: chest pain, cough, diaphoresis, fever/chills, headaches, loss of appetite, nausea/vomiting, rash, seizure, shortness of breath, syncope, foul smelling urine, diarrhea, incontinence - Related Data Home Medications Medication Instructions Recorded Confirmed Last Taken Lisinopril 20 mg PO DAILY 04/22/19 04/22/19 Unknown amLODIPine 10 mg PO DAILY 04/22/19 04/22/19 Unknown Allergies Allergy/AdvReac Type Severity Reaction Status Date / Time No Known Allergies Allergy Unverified 04/22/19 07:45 ED Review of Systems ROS: Stated complaint: FATIGUE/HIGH BLOOD PRESSURE Other details as noted in HPI Constitutional: malaise, weakness. denies: chills, fever Eyes: denies: eye pain, eye discharge, vision change ENT: denies: ear pain, throat pain Respiratory: denies: cough, shortness of breath, wheezing Cardiovascular: denies: chest pain, palpitations Endocrine: no symptoms reported Gastrointestinal: denies: abdominal pain, nausea, diarrhea Genitourinary: denies: urgency, dysuria Musculoskeletal: denies: back pain, joint swelling, arthralgia Skin: denies: rash, lesions Neurological: as per HPI, weakness, confusion, abnormal gait. denies: headache, paresthesias Psychiatric: denies: anxiety, depression Hematological/Lymphatic: denies: easy bleeding, easy bruising ED Past Medical Hx - Past Medical History Previous Medical History?: Yes Hx Hypertension: Yes Additional medical history: Brain Aneurysm - Surgical History Past Surgical History?: Yes Additional Surgical History: Brain - Family History Family history: no significant - Social History Smoking Status: Never Smoker Substance Use Type: None - Medications Home Medications: Home Medications Medication Instructions Recorded Confirmed Last Taken Type Lisinopril 20 mg PO DAILY 04/22/19 04/22/19 Unknown History amLODIPine 10 mg PO DAILY 04/22/19 04/22/19 Unknown History ED Physical Exam - General Limitations: No Limitations General appearance: alert, in no apparent distress - Head Head exam: Present: atraumatic, normocephalic - Eye Eye exam: Present: normal appearance - ENT ENT exam: Present: mucous membranes moist - Neck Neck exam: Present: normal inspection - Respiratory Respiratory exam: Present: normal lung sounds bilaterally. Absent: respiratory distress - Cardiovascular Cardiovascular Exam: Present: regular rate, normal rhythm. Absent: systolic murmur, diastolic murmur, rubs, gallop - GI/Abdominal GI/Abdominal exam: Present: soft, normal bowel sounds - Rectal Rectal exam: Present: deferred - Extremities Exam Extremities exam: Present: normal inspection - Back Exam Back exam: Present: normal inspection - Neurological Exam Neurological exam: Present: alert, altered - Psychiatric Psychiatric exam: Present: normal affect, normal mood - Skin Skin exam: Present: warm, dry, intact, normal color. Absent: rash - Assessment Assessment Interval: Baseline - Level of Consciousness 1a. Level of Consciousness: alert/keenly responsive - LOC Questions 1b. LOC Questions: answers 1 question correctly - LOC Command 1c. LOC Commands: performs tasks correctly - Best Gaze 2. Best Gaze: partial gaze palsy - Visual 3. Visual: partial hemianopia - Facial Palsy 4. Facial Palsy: normal symmetrical movement - Motor Arm 5a. Motor Arm Left: no drift 5b. Motor Arm Right: drift - Motor Leg 6a. Motor Leg Left: no drift 6b. Motor Leg Right: no drift - Limb Ataxia 7. Limb Ataxia: absent - Sensory 8. Sensory: normal - Best Language 9. Best Language: no aphasia - Dysarthria 10. Dysarthria: normal - Extinction and Inattention 11. Extinction/Inattention: no abnormality - Scoring Total Score: 4 Stroke Severity: Minor Stroke ED Course Vital Signs 04/10/21 04/10/21 04/10/21 12:49 16:02 16:31 Temperature 98.4 F Pulse Rate 91 H 70 Respiratory 20 16 22 Rate Blood Pressure 130/70 119/95 O2 Sat by Pulse 89 97 98 Oximetry 04/10/21 04/10/21 04/10/21 16:45 17:01 17:15 Temperature Pulse Rate 63 79 68 Respiratory 20 26 H 18 Rate Blood Pressure 128/101 116/91 127/82 O2 Sat by Pulse 98 91 97 Oximetry 04/10/21 04/10/21 04/10/21 18:01 19:01 20:01 Temperature Pulse Rate 66 Respiratory 18 Rate Blood Pressure 116/73 131/90 139/90 O2 Sat by Pulse 98 97 95 Oximetry - Reevaluation(s) Reevaluation #1: I discussed all results with patient. I discussed plan of care with patient. Patient agrees with plan of care and admission. Patient to be admitted to the hospitalist service. 04/10/21 17:30 - Consultations Consultation #1: I discussed the case with neurology, Dr. Smyth. Dr. Smyth recommends admission, MRI, MRA and an aspirin daily. 04/10/21 16:57 Consultation #2: Hospitalist consulted for admission. Hospitalist to admit patient. 04/10/21 17:31 - Lab Data Result diagrams: 04/10/21 15:46 04/10/21 15:46 Lab Results 04/10/21 04/10/21 Range/Units 15:46 15:46 WBC 7.3 (4.5-11.0) K/mm3 RBC 4.84 (3.65-5.03) M/mm3 Hgb 14.6 (11.8-15.2) gm/dl Hct 42.9 (35.5-45.6) % MCV 89 (84-94) fl MCH 30 (28-32) pg MCHC 34 (32-34) % RDW 14.6 (13.2-15.2) % Plt Count 235 (140-440) K/mm3 Lymph % (Auto) 22.3 (13.4-35.0) % [place] % (Auto) 12.8 H (0.0-7.3) % Eos % (Auto) 0.5 (0.0-4.3) % Baso % (Auto) 0.5 (0.0-1.8) % Lymph # (Auto) 1.6 (1.2-5.4) K/mm3 [place]ent # (Auto) 0.9 H (0.0-0.8) K/mm3 Eos # (Auto) 0.0 (0.0-0.4) K/mm3 Baso # (Auto) 0.0 (0.0-0.1) K/mm3 Seg Neutrophils % 63.9 (40.0-70.0) % Seg Neutrophils # 4.7 (1.8-7.7) K/mm3 Sodium 141 (137-145) mmol/L Potassium 3.5 L (3.6-5.0) mmol/L Chloride 106.8 (98-107) mmol/L Carbon Dioxide 22 (22-30) mmol/L Anion Gap 16 mmol/L BUN 19 (9-20) mg/dL Creatinine 1.2 (0.8-1.3) mg/dL Estimated GFR > 60 ml/min BUN/Creatinine Ratio 16 % Glucose 96 (75-100) mg/dL Calcium 9.7 (8.4-10.2) mg/dL Total Bilirubin 0.50 (0.1-1.2) mg/dL AST 16 (5-40) units/L ALT 16 (7-56) units/L Alkaline Phosphatase 110 (35-129) units/L Troponin T < 0.010 (0.00-0.029) ng/mL Total Protein 7.9 (6.3-8.2) g/dL Albumin 4.1 (3.9-5) g/dL Albumin/Globulin Ratio 1.1 % - EKG Data -: EKG Interpreted by Me EKG shows normal: sinus rhythm, axis, intervals, QRS complexes, ST-T waves Rate: normal - Radiology Data Radiology results: report reviewed, image reviewed interpreted by me: Chest x-ray: No pneumonia, no pneumothorax, no foreign body, no osseous findings, no acute findings CT head/brain wo con INDICATION / CLINICAL INFORMATION: 70 years Male; AMS. TECHNIQUE: Routine CT head without contrast. All CT scans at this location are performed using CT dose reduction for ALARA by means of automated exposure control. COMPARISON: 04/22/2019 FINDINGS: BRAIN / INTRACRANIAL CONTENTS: There is loss of aly/white differentiation in the right parietal temporal region, most likely representing acute/subacute branch MCA infarct. This finding is not se en on prior exam. Old, small areas of encephalomalacia are seen in the watershed distributions bilaterally, which may be related to prior ventricular catheter placement. Old, small branch PICA infarcts seen on the right-unchanged from prior. Prior aneurysm coilings seen-one region of coiling is seen in the suprasellar cistern on the right and a second is noted along the right lateral margin of the brainstem. These findings are unchanged from prior. There is a ventricular catheter seen entering the calvarium via a right frontal approach with distal tip seen in the third ventricle, passing through the foramen of Monro. There is also a second ventricular catheter entering the calvarium via a left posterior parietal approach with distal tip crossing the septum pellucidum and entering the right lateral ventricle. Small focus of calcification is seen along this catheter is well. Findings are not significantly changed from prior. There is no evidence of hydrocephalus. Otherwise, no acute hemorrhage, mass effect, or midline shift. Mild, diffuse cerebral atrophy noted. There are [id number] areas of decreased attenuation in the white matter of the cerebral hemispheres, as well as the gangliocapsular regions. These are nonspecific findings and may be related to microangiopathy (hypertension, diabetes, atherosclerosis), given the patient's age. CRANIOCERVICAL JUNCTION: No significant abnormality. ORBITS: No significant abnormality of visualized orbits. SINUSES / MASTOIDS: Visualized paranasal sinuses and mastoid air cells are essentially clear. ADDITIONAL FINDINGS: None. IMPRESSION: 1. Branch acute/subacute MCA infarct seen on the right, without signs of hemorrhagic transformation. 2. 2 ventricular catheters seen. No signs of hydrocephalus. CHEST 1 VIEW INDICATION: ams COMPARISON: FINDINGS: SUPPORT DEVICES: None. HEART / MEDIASTINUM: No significant abnormality. LUNGS / PLEURA: No significant pulmonary or pleural abnormality. No pneumothorax. ADDITIONAL FINDINGS: IMPRESSION: 1. No acute cardiopulmonary disease - Medical Decision Making Patient is a 70-year-old male who presents emergency room for altered mental status, weakness and confusion. Patient had a decrease in his gait. Patient's daughter at bedside. Patient had labs done which were essentially unremarkable. Patient had a head CT done which shows a subacute to acute stroke. After I reviewed the CT, I consulted teleneuro and teleneuro wants patient admitted for an MRI and further stroke work-up. Patient labs were essentially unremarkable. Patient admitted to the hospital service for further evaluation and treatment. Patient given aspirin prior to admission. Critical care time documented due to the multiple reassessments, prolonged time at the bedside, interpretation of diagnostics and labs and discussion with consultants. - Differential Diagnosis CVA, weakness, UTI, dehydration, confusion Critical Care Time: Yes Critical care time in (mins) excluding proc time.: 35 Critical care attestation.: If time is entered above; I have spent that time in minutes in the direct care of this critically ill patient, excluding procedure time. Critical Care Time: 35 minutes ED Disposition Clinical Impression: Weakness, Confusion CVA (cerebral vascular accident) Qualifiers: CVA mechanism: unspecified Qualified Code(s): I63.9 - Cerebral infarction, unspecified Altered mental status Qualifiers: Altered mental status type: unspecified Qualified Code(s): R41.82 - Altered mental status, unspecified Disposition: DC-09 OP ADMIT IP TO THIS HOSP Is pt being admited?: Yes Does the pt Need Aspirin: No Condition: Critical Time of Disposition: 17:45
[2021-04-10 16:51] LABS: Alanine Aminotransferase 16 units/L (7-56); Albumin 4.1 g/dL (3.9-5); BUN/Creatinine Ratio 16; Blood Urea Nitrogen 19 mg/dL (9-20); Calcium 9.7 mg/dL (8.4-10.2); Hemolysis Index 6
[2021-04-10] MEDS ORDERED: ASPIRIN 325 MG TAB PO ONE (16:56)
--- NOTE | 2021-04-10 16:58 | Consultation ---
Medications and Allergies Allergies Allergy/AdvReac Type Severity Reaction Status Date / Time No Known Allergies Allergy Unverified 04/22/19 07:45 Home Medications Medication Instructions Recorded Confirmed Last Taken Type Lisinopril 20 mg PO DAILY 04/22/19 04/22/19 Unknown History amLODIPine 10 mg PO DAILY 04/22/19 04/22/19 Unknown History Physical Examination - Vital Signs Vital Signs: Vital Signs Temp Pulse Resp BP Pulse Ox 98.4 F 91 H 20 130/70 89 04/10/21 12:49 04/10/21 12:49 04/10/21 12:49 04/10/21 12:49 04/10/21 12:49 Results - Laboratory Findings CBC and BMP: 04/10/21 15:46 04/10/21 15:46 Abnormal Lab Findings: Abnormal Labs 04/10/21 04/10/21 15:46 15:46 [place] % (Auto) 12.8 H [place] # (Auto) 0.9 H Potassium 3.5 L Assessment and Plan [facility] Consult Note # Demographics Consult Type: Acute Stroke Level 2 (4.5-24 hrs) Patient Location: Emergency Room First Name: Hawa Last Name: Santo Date of : 1950 Age: 70 Gender: Male Time of Initial Page ( Time): 04/10/2021, 16:44 Time of Return Call ( Time): 04/10/2021, 16:46 # HPI History: 70M says he has a history of 2 ruptured brain aneurysms. This AM per family feeling delusional and faint. OK yesterday. Not normal cognitively since his ruptured brain aneurysms per family. No recent illness, injury, surgery. Denies headache, neck pain. # Scores Time of exam and NIHSS ( Time): 04/10/2021, 16:52 Level of Consciousness 1a: [0] = Alert; keenly responsive LOC Questions 1b: [1] = Answers one correctly LOC Commands 1c: [0] = Performs both tasks correctly Best Gaze 2: [1] = Partial gaze palsy Visual 3: [2] = Complete hemianopia Facial Palsy 4: [0] = Normal symmetrical movements Motor Arm Left 5a: [0] = No drift Motor Arm Right 5b: [0] = No drift Motor Leg Left 6a: [0] = No drift Motor Leg Right 6b: [0] = No drift Limb Ataxia 7: [0] = Absent Sensory 8: [0] = Normal Best Language 9: [0] = No aphasia Dysarthria 10: [0] = Normal Extinction and Inattention 11: [0] = No abnormality NIHSS Total: 4 # PMH-FH-SH Past Medical History: hypertension SAH due to aneurysm Past Surgical History: INVAS TECH shunt Medications: antihypertensive # Data Head CT: no bleed subacute ischemic stroke right # Assessment Impression: Ischemic Stroke (Subacute) # Plan Thrombolytic/Intervention: NOT IV Thrombolytic or IA Intervention Thrombolytic Exclusion (< 3 hour window): time of onset unclear Thrombolytic Exclusion: > 4.5 hours Intraarterial Exclusion: unfavorable imaging/hypodensity Target Blood Pressure: SBP < 220 Imaging: (urgency: routine): MR Angiogram Head without contrast MR Angiogram Neck with contrast MRI Brain without contrast Diagnostic Test: echo without bubble study Medication: aspirin 81 mg daily start statin with goal of LDL < 70 Other: LDL < 70 permissive hypertension I have discussed my recommendations with the referring provider Disposition: admit # Logistics Telemedicine: Interactive 2 way audio and visual telecommunication technology was utilized during this visit
[2021-04-10] MEDS ORDERED: METOCLOPRAMIDE 10 MG TAB PO PRN (17:31)
[2021-04-10] MEDS ORDERED: MAGNESIUM HYDROXIDE (MOM) ORAL LIQD UDC PO PRN (17:31)
[2021-04-10] MEDS ORDERED: ACETAMINOPHEN 325 MG TAB PO PRN (17:31)
[2021-04-10] MEDS ORDERED: PROMETHAZINE 25 MG RECT SUPP PR PRN (17:31)
[2021-04-10] MEDS ORDERED: ALBUTEROL 2.5 MG/3 ML NEBU IH PRN (17:31)
[2021-04-10] MEDS ORDERED: ONDANSETRON 4 MG/2 ML INJ IV PRN (17:31)
--- NOTE | 2021-04-10 17:31 | History and Physical Report ---
History of Present Illness Chief complaint: He is getting confused History of present illness: 70 YO Male with Obesity, HTN, Brain Aneurysm presents to ED for evaluation. Patient has diminished cognition at the time my evaluation and provides minimal history. Patient daughter is at bedside during exam and interview and provides detailed history. The daughter reports "he is more confused today". Patient daughter reports that patient was at his baseline level of cognition and from function at bedtime around 2100 hrs. Patient awoke from sleep this morning around 0900 hrs. and was unable to walk, and was found to have difficulty speaking. Patient transported to [facility] via private vehicle for further care and evaluation of the aforementioned symptoms. The patient was seen and evaluated in the emergency department. All lab and imaging studies reviewed. The patient was found to have a focal neurologic deficit. A code stroke was called. Teleneurology was consulted. The patient was found to have clinical symptoms consistent with CVA. Patient placed in observation status and admitted to medical floor and initiated on CVA protocol. No reports of fever, chills, chest pain, palpitation, productive cough, skin rash, recent ill contacts, or known exposure to COVID-19. Prior admission on 04/22/2019 reviewed. All medication listed at time of admission has been reconciled. Advanced care planning conduc pauline in ED. Past History Past Medical History: hypertension, other (See HPI) Past Surgical History: Other (Brain surgery) Social history: single. denies: smoking, alcohol abuse, prescription drug abuse Family history: hypertension Medications and Allergies Allergies Allergy/AdvReac Type Severity Reaction Status Date / Time No Known Allergies Allergy Unverified 04/22/19 07:45 Home Medications Medication Instructions Recorded Confirmed Last Taken Type Lisinopril 20 mg PO DAILY 04/22/19 04/22/19 Unknown History amLODIPine 10 mg PO DAILY 04/22/19 04/22/19 Unknown History Review of Systems ROS unobtainable: due to mental status Exam - Constitutional Vitals: Temp Pulse Resp BP Pulse Ox 98.4 F 68 18 127/82 97 04/10/21 12:49 04/10/21 17:15 04/10/21 17:15 04/10/21 17:15 04/10/21 17:15 General appearance: Present: mild distress, obese - EENT Eyes: Present: PERRL ENT: hearing intact, clear oral mucosa - Neck Neck: Present: supple, normal ROM - Respiratory Respiratory effort: normal Respiratory: bilateral: CTA - Cardiovascular Heart Sounds: Present: S1 & S2. Absent: rub, click - Extremities Extremities: pulses symmetrical, No edema Peripheral Pulses: within normal limits - Abdominal General gastrointestinal: Present: soft, non-tender, non-distended, normal bowel sounds Male genitourinary: Present: normal - Integumentary Integumentary: Present: clear, warm, dry - Musculoskeletal Musculoskeletal: generalized weakness - Psychiatric Psychiatric: no appropriate mood/affect, no intact judgment & insight, no memory intact - Neurologic Neurologic: CNII-XII intact, no focal deficits, moves all extremities, no gait normal (Denied) HEART Score - HEART Score Troponin: Troponin T < 0.010 ng/mL (0.00-0.029) 04/10/21 15:46 Results - Labs CBC & Chem 7: 04/10/21 15:46 04/10/21 15:46 Labs: Abnormal lab results 04/10/21 04/10/21 Range/Units 15:46 15:46 [place] % (Auto) 12.8 H (0.0-7.3) % [place] # (Auto) 0.9 H (0.0-0.8) K/mm3 Potassium 3.5 L (3.6-5.0) mmol/L Assessment and Plan - Patient Problems (1) CVA (cerebral vascular accident) Current Visit: Yes Status: Acute Qualifiers: CVA mechanism: unspecified Qualified Code(s): I63.9 - Cerebral infarction, unspecified Plan to address problem: CVA protocol: CT head, neuro check, seizure precaution of aspiration caution, fall precaution, lipid panel, echocardiogram, carotid Doppler, antiplatelet therapy, telemetry neurology consulted in ED, physical therapy consulted, Occupational Therapy consulted, speech therapy consulted. (2) Hypertension Current Visit: Yes Status: Acute Qualifiers: Hypertension type: essential hypertension Qualified Code(s): I10 - Essentia l (primary) hypertension Plan to address problem: Monitor blood pressure every shift, continue medical management. (3) Obesity hypoventilation syndrome Current Visit: Yes Status: Acute Plan to address problem: Balanced diet, increase physical activity at discharge, outpatient pulmonary follow-up for sleep study. (4) DVT prophylaxis Current Visit: Yes Status: Acute Plan to address problem: SCDs bilateral lower extremities while in bed (5) Advance care planning Current Visit: Yes Status: Acute Plan to address problem: Disease education conducted, care plan discussed, diagnosis discussed, prognosis discussed, patient is full code, patient family knowledges understanding and agr eement with care plan, +30 minutes.
[2021-04-10] MEDS ORDERED: LORazepam 2 MG/ML VIAL IV ONE (23:35)
--- NOTE | 2021-04-11 00:39 | Cat Scan Report ---
CT HEAD WITHOUT CONTRAST INDICATION / CLINICAL INFORMATION: Patient fell while in the hospital hitting his head. Head injury. TECHNIQUE: All CT scans at this location are performed using CT dose reduction for ALARA by means of automated e xposure control. COMPARISON: 04/10/2021 FINDINGS: There is diffuse low attenuation within the right parietal and temporal lobes again seen. This is als o identified on prior examination. The patient catheter is again noted and unchanged in position. Vis ualized sinuses are clear. Visualized orbits appear normal. . No acute hemorrhage is seen. Scattered areas of low-attenuation in the periventricular and central white matter. ADDITIONAL FINDINGS: None. IMPRESSION: 1. Subacute infarct MCA distribution on the right is again identified. Overall findings appear simila r to the prior examination. 2. Nonspecific white matter change in the periventricular and central white matters. TIPPLE [employer]IC shunt cathete rs are unchanged. Signer Name: Chalo Israel MD Signed: 04/11/2021 12:35 AM Workstation Name: [email or web address]
[2021-04-11 05:28] LABS: Chol/HDL Ratio 3.3 %
--- NOTE | 2021-04-11 09:19 | Progress Note ---
Assessment and Plan Assessment and plan: --Acute CVA (cerebral vascular accident) Current Visit: Yes Status: Acute Not a candidate for TPA , neuro work-up is in progress Neurochecks, aspirin and statin MRI brain, MRA brain, CTA head, CTA neck Bedside swallow, diet as tolerated Physical therapy .occupational therapy, speech therapy rehabilitation Supportive care ,Neurology consult Imaging studies; First CT head without contrast; branch acute/subacute MCA infarct on the right without hemorrhagic transformation 2 ventricular catheter seen no signs of hydrocephalus Follow-up CT head without contrast; subacute infarct MCA distribution in the right Nonspecific white matter changes in the periventricular and central white matter SILK SCREEN OPERATOR shunt catheters unchanged --Hypertension Current Visit: Yes Status: Acute Permissive hypertension per stroke protocol --History of brain surgery/SILK SCREEN OPERATOR shunt/aneurysm coil 2009 Current Visit: Yes Status: Acute Requested medical records from [place] for MRI study -- Obesity BMI 36.0 Current Visit: Yes Status: Acute patient needs outpatient weight reduction Dietary modification, exercise as tolerated and stable -- DVT prophylaxis Current Visit: Yes Status: Acute SCDs bilateral lower extremities while in bed -- Advance care planning Current Visit: Yes Status: Acute Disease education conducted, care plan discussed, diagnosis discussed, prognosis discussed, patient is full code, patient family knowledges understanding and agreement with care plan, +30 minutes. Follow neuro evaluation and recommendations I discussed in detail with patient's daughter over the phone while visiting I explained in detail patient's condition treatment plan tests and reports, consultants recommendations, plan of care Delay of the MRI pending reports from [facility]. I answered all her questions And encouraged her to call back if she has any new concerns History Interval history: I have seen and examined the patient at the bedside Patient's chart and medications reviewed Patient with acute CVA, confused agitated requiring restraints Had fall last night, patient had follow-up CT scan done last night no new injuries acute CVA same as the previous CT scan Patient is alert and awake confused agitated restraint for safety Vital signs noted Hospitalist Physical - Constitutional Vitals: Temp Pulse Resp BP Pulse Ox 97.9 F 84 18 128/75 95 04/11/21 08:35 04/11/21 08:35 04/11/21 08:35 04/11/21 08:35 04/11/21 08:35 General appearance: Present: mild distress, obese, other (Confused agitated restrained) - EENT Eyes: Present: PERRL, EOM intact - Neck Neck: Present: supple, normal ROM - Respiratory Respiratory effort: normal Respiratory: bilateral: diminished, negative: rales, rhonchi, wheezing - Cardiovascular Rhythm: regular Heart Sounds: Present: S1 & S2 - Extremities Extremities: no ischemia, No edema - Abdominal General gastrointestinal: soft, non-tender, non-distended, normal bowel sounds - Integumentary Integumentary: Present: clear, warm - Psychiatric Psychiatric: agitated, other (Confused combative, requiring restraints) - Neurologic Neurologic: other (Acute CVA with encephalopathy ,residual weakness) HEART Score - HEART Score Troponin: Troponin T < 0.010 ng/mL (0.00-0.029) 04/10/21 15:46 Results - Labs CBC & Chem 7: 04/10/21 15:46 04/10/21 15:46 Labs: Laboratory Last Values WBC 7.3 K/mm3 (4.5-11.0) 04/10/21 15:46 RBC 4.84 M/mm3 (3.65-5.03) 04/10/21 15:46 Hgb 14.6 gm/dl (11.8-15.2) 04/10/21 15:46 Hct 42.9 % (35.5-45.6) 04/10/21 15:46 MCV 89 fl (84-94) 04/10/21 15:46 MCH 30 pg (28-32) 04/10/21 15:46 MCHC 34 % (32-34) 04/10/21 15:46 RDW 14.6 % (13.2-15.2) 04/10/21 15:46 Plt Count 235 K/mm3 (140-440) 04/10/21 15:46 Lymph % (Auto) 22.3 % (13.4-35.0) 04/10/21 15:46 Mck[place]ley % (Auto) 12.8 % (0.0-7.3) H 04/10/21 15:46 Eos % (Auto) 0.5 % (0.0-4.3) 04/10/21 15:46 Baso % (Auto) 0.5 % (0.0-1.8) 04/10/21 15:46 Lymph # (Auto) 1.6 K/mm3 (1.2-5.4) 04/10/21 15:46 [place] # (Auto) 0.9 K/mm3 (0.0-0.8) H 04/10/21 15:46 Eos # (Auto) 0.0 K/mm3 (0.0-0.4) 04/10/21 15:46 Baso # (Auto) 0.0 K/mm3 (0.0-0.1) 04/10/21 15:46 Seg Neutrophils % 63.9 % (40.0-70.0) 04/10/21 15:46 Seg Neutrophils # 4.7 K/mm3 (1.8-7.7) 04/10/21 15:46 Sodium 141 mmol/L (137-145) 04/10/21 15:46 Potassium 3.5 mmol/L (3.6-5.0) L 04/10/21 15:46 Chloride 106.8 mmol/L (98-107) 04/10/21 15:46 Carbon Dioxide 22 mmol/L (22-30) 04/10/21 15:46 Anion Gap 16 mmol/L 04/10/21 15:46 BUN 19 mg/dL (9-20) 04/10/21 15:46 Creatinine 1.2 mg/dL (0.8-1.3) 04/10/21 15:46 Estimated GFR > 60 ml/min 04/10/21 15:46 BUN/Creatinine Ratio 16 % 04/10/21 15:46 Glucose 96 mg/dL (75-100) 04/10/21 15:46 Calcium 9.7 mg/dL (8.4-10.2) 04/10/21 15:46 Total Bilirubin 0.50 mg/dL (0.1-1.2) 04/10/21 15:46 AST 16 units/L (5-40) 04/10/21 15:46 ALT 16 units/L (7-56) 04/10/21 15:46 Alkaline Phosphatase 110 units/L (35-129) 04/10/21 15:46 Troponin T < 0.010 ng/mL (0.00-0.029) 04/10/21 15:46 Total Protein 7.9 g/dL (6.3-8.2) 04/10/21 15:46 Albumin 4.1 g/dL (3.9-5) 04/10/21 15:46 Albumin/Globulin Ratio 1.1 % 04/10/21 15:46 Triglycerides 75 mg/dL (2-149) 04/11/21 04:19 Cholesterol 132 mg/dL (50-199) 04/11/21 04:19 LDL Cholesterol Direct 91 mg/dL (50-130) 04/11/21 04:19 HDL Cholesterol 40 mg/dL (40-59) 04/11/21 04:19 Cholesterol/HDL Ratio 3.30 % 04/11/21 04:19 Osborne/IV: Voiding Method Toilet Active Medications - Current Medications Current Medications: Generic Name Dose Route Start Last Admin Trade Name Freq PRN Reason Stop Dose Admin Acetaminophen 650 mg 04/10/21 17:31 Acetaminophen 325 Mg Tab PO Q4H PRN Pain, Mild (1-3) Albuterol 2.5 mg 04/10/21 17:31 Albuterol 2.5 Mg/3 Ml Nebu IH Q3HRT PRN Shortness Of Breath Aspirin 325 mg 04/11/21 10:00 Aspirin 325 Mg Tab PO QDAY BRAXTON Atorvastatin Calcium 40 mg 04/10/21 22:00 04/10/21 22:52 Atorvastatin 40 Mg Tab PO 40 mg QHS BRAXTON Administration Bisacodyl 10 mg 04/10/21 17:31 Bisacodyl 10 Mg Rect Supp ME QDAY PRN Constipation Lorazepam 2 mg 04/11/21 09:15 Lorazepam 2 Mg/Ml Vial IV STOCK TRACER NR Magnesium Hydroxide 30 ml 04/10/21 17:31 Magnesium Hydroxide (Mom) Oral Liqd Udc PO Q4H PRN Constipation Metoclopramide HCl 10 mg 04/10/21 17:31 Metoclopramide 10 Mg Tab PO Q6H PRN Nausea And Vomiting Ondansetron HCl 4 mg 04/10/21 17:31 Ondansetron 4 Mg/2 Ml Inj IV Q8H PRN Nausea And Vomiting Promethazine HCl 25 mg 04/10/21 17:31 Promethazine 25 Mg Rect Supp ME Q6H PRN Nausea And Vomiting Sodium Chloride 10 ml 04/10/21 17:31 Sodium Chloride 0.9% 10 Ml Flush Syringe IV PRN PRN LINE FLUSH
[2021-04-11] MEDS ORDERED: LORazepam 2 MG/ML VIAL IV NR (09:30)
[2021-04-11] MEDS: ASPIRIN 325 MG TAB PO SCH (13:21)
--- NOTE | 2021-04-11 13:47 | Vascular Lab Report ---
"DUPLEX DOPPLER ULTRASOUND CAROTID, BILATERAL INDICATION: stroke. FINDINGS: RIGHT CAROTID: Mild to moderate atherosclerotic plaque. Right CCA velocity: 59 cm/sec. Right ICA peak systolic velocity: 32 cm/sec. ICA/CCA PSV Ratio: 0.6. Right Vertebral Artery: Antegrade flow. LEFT CAROTID: Mild to moderate atherosclerotic plaque. Left CCA velocity: 59 cm/sec. Left ICA peak systolic velocity: 49 cm/sec. ICA/CCA PSV Ratio: 0 point. Left Vertebral Artery: Antegrade flow. IMPRESSION: 1. Right Internal Carotid Artery: Less than 50% diameter stenosis. 2. Left Internal Carotid Artery: Less than 50% diameter stenosis. Velocity criteria are extrapolated from diameter data as defined by the Society of Radiologists in Ul trasound Consensus Conference, Radiology 2003; 229;340-346. Degree of || ICA PSV || Plaque || ICA/CCA Stenosis (%) || (cm/sec) || estimate (%) || PSV Ratio - Normal...............<125..............None.................<2.0 - <50....................<125..............<50....................<2.0 - 50-69................125-230.........>50....................2.0-4.0 - >70 but <100....>230..............>50....................>4.0 - Near...................High, low, .....visible................variable occlusion or none - Total...................None.............visible;................N/A occlusion no lumen Signer Name: Nagi Wood MD Signed: 04/11/2021 1:42 PM Workstation Name: [id number]"
--- NOTE | 2021-04-11 14:19 | Electrocardiograph Report ---
[facility] Test Date: 2021-04-10 Test Time: 18:34:29 Pat Name: TIKI COLLINS Department: Room: A471 1 Gender: M Pipe Coverer And Insulator: ABDIFATAH : 1950 Requested By: LUCY TERRELL Order Number: [id number] Reading MD: Ruperto Palacios Measurements Intervals [place] Rate: 66 P: 4 KS: 271 QRS: -22 QRSD: 96 T: -2 QT: 408 QTc: 429 Interpretive Statements Sinus rhythm Multiple ventricular premature complexes Prolonged KS interval No previous ECG available for comparison Electronically Signed On 04-11-2021 14:19:00 EDT by Ruperto Palacios
--- NOTE | 2021-04-11 14:49 | Consultation ---
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 Patient's daughter notes that he is still confused and has a constant right gaze deviation. Patient thinks he is at home and is trying to get out of bed and in restraints. Patient had a fall today. Past History Past Medical History: hypertension, other (See HPI) Past Surgical History: Other (Brain surgery) Social history: single. denies: smoking, alcohol abuse, prescription drug abuse Family history: hypertension Medications and Allergies Allergies Allergy/AdvReac Type Severity Reaction Status Date / Time No Known Allergies Allergy Unverified 04/22/19 07:45 Home Medications Medication Instructions Recorded Confirmed Last Taken Type Lisinopril 20 mg PO DAILY 04/22/19 04/22/19 Unknown History amLODIPine 10 mg PO DAILY 04/22/19 04/22/19 Unknown History Active Meds: Active Medications Acetaminophen (Acetaminophen 325 Mg Tab) 650 mg PO Q4H PRN PRN Reason: Pain, Mild (1-3) Albuterol (Albuterol 2.5 Mg/3 Ml Nebu) 2.5 mg IH Q3HRT PRN PRN Reason: Shortness Of Breath Aspirin (Aspirin 325 Mg Tab) 325 mg PO QDAY REPLACED BY [facility] Last Admin: 04/11/21 13:21 Dose: 325 mg Documented by: Atorvastatin Calcium (Atorvastatin 40 Mg Tab) 40 mg PO QHS REPLACED BY [facility] Last Admin: 04/10/21 22:52 Dose: 40 mg Documented by: Bisacodyl (Bisacodyl 10 Mg Rect Supp) 10 mg OH QDAY PRN PRN Reason: Constipation Lorazepam (Lorazepam 2 Mg/Ml Vial) 2 mg IV MEDICAL LABORATORY TECHNICAL OFFICER NR Stop: 04/11/21 23:59 Magnesium Hydroxide (Magnesium Hydroxide (Mom) Oral Liqd Udc) 30 ml PO Q4H PRN PRN Reason: Constipation Metoclopramide HCl (Metoclopramide 10 Mg Tab) 10 mg PO Q6H PRN PRN Reason: Nausea And Vomiting Ondansetron HCl (Ondansetron 4 Mg/2 Ml Inj) 4 mg IV Q8H PRN PRN Reason: Nausea And Vomiting Promethazine HCl (Promethazine 25 Mg Rect Supp) 25 mg [place] Q6H PRN PRN Reason: Nausea And Vomiting Sodium Chloride (Sodium Chloride 0.9% 10 Ml Flush Syringe) 10 ml IV PRN PRN PRN Reason: LINE FLUSH Review of Systems ROS unobtainable: due to mental status All systems: negative Physical Examination - Vital Signs Vital Signs: Vital Signs Temp Pulse Resp BP Pulse Ox 98.4 F 91 H 20 130/70 89 04/10/21 12:49 04/10/21 12:49 04/10/21 12:49 04/10/21 12:49 04/10/21 12:49 - Physical Exam Narrative exam: Gen: nad, well-nourished; Head: normocephalic; Eyes: no gaze deviation; no ptosis; ENT: normal vocalization; CVS: warm and well-perfused; Pulm: no respiratory distress; GI: appears non-distended, protuberant; Ext: no cyanosis at distal extremities; +restraint at LUE; Skin: no acute rash at distal extremities; Heme: no pathologic bruising at distal extremities; Neuro: alert, oriented to name, not age, not month, not year, not surroundings, slight dysarthria, mixed receptive/expressive dysphasia, CN 2 - PERRL, visual gamboa grossly intact, CN 3, 4, 6 - EOMI, CN 5 - facial sensation symmetric to light touch, CN 7 - facial movement symmetric, CN 8 - hearing grossly intact, CN 9, 10 - not cooperative, CN 11 - symmetric shoulder movement; CN 12 - tongue midline; Motor - at least 3/5 in all exts; Sensory - light touch symmetric, Cerebellar - pt cannot cooperate secondary to dysphasia, Gait - deferred second jason to fall risk; Patinet is not cooperative with NIHSS exam due to agitation. 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 Patient's daughter note s that he is still confused and has a constant right gaze deviation. Patient thinks he is at home and is trying to get out of bed and in restraints. Patient had a fall today. 1. Seizure - initiate Keppra 1000 mg iv/po bid; EEG pending. 2. Acute Ischemic Stroke - initial NCHCT negative; awaiting possible MR Brain if VPS is compatible, otherwise repeat NCHCT (s/p fall today) is recommended and spoke to RN at [facility] to notify the attneding regarding the change in pt's clinical exam per daughter, s/p fall; further workup based on ct or mr findings; hold off on blood thinners secondary to hx of ruptured aneurysm/repair. 3. Acute Encephalopath - metabolic etiology/workup per primary team. 4. Hx of SAH (aneurysm rupture) w/ VPS - xray shunt series. Moisés Ritchie MD Neurology
[2021-04-11] MEDS: levETIRAcetam 1,000 MG in DEXTROSE 5% IN WATER 100 ML IV SCH (15:24)
--- NOTE | 2021-04-11 16:13 | Event Note ---
Date: 04/11/21 I discussed in detail with patient's daughter Ms. Katelynn Blanchard over the phone while visiting I explained in detail patient's condition treatment plan tests and reports, consultants recommendations, plan of care Delay of the MRI pending reports from [facility]. I answered all her questions And encouraged her to call back if she has any new concerns
[2021-04-12] MEDS: levETIRAcetam 1,000 MG in DEXTROSE 5% IN WATER 100 ML IV SCH ×3 (07:55→21:21)
[2021-04-12] MEDS: ASPIRIN 325 MG TAB PO SCH (10:17)
--- NOTE | 2021-04-12 11:49 | Progress Note ---
Assessment and Plan Assessment and plan: --Acute CVA (cerebral vascular accident) Current Visit: Yes Status: Acute Not a candidate for TPA , neuro work-up is in progress Neurochecks, aspirin and statin MRI brain, MRA brain, CTA head, CTA neck Bedside swallow, diet as tolerated Physical therapy .occupational therapy, speech therapy rehabilitation Supportive care ,Neurology consult Imaging studies; First CT head without contrast; branch acute/subacute MCA infarct on the right without hemorrhagic transformation 2 ventricular catheter seen no signs of hydrocephalus Follow-up CT head without contrast; subacute infarct MCA distribution in the right Nonspecific white matter changes in the periventricular and central white matter CERTIFIED PEST CONTROL TECHNICIAN shunt catheters unchanged --Hypertension Current Visit: Yes Status: Acute Permissive hypertension per stroke protocol --History of brain surgery/CERTIFIED PEST CONTROL TECHNICIAN shunt/aneurysm coil 2009 Current Visit: Yes Status: Acute Requested medical records from [place] to [place] for MRI study -- Obesity BMI 36.0 Current Visit: Yes Status: Acute patient needs outpatient weight reduction Dietary modification, exercise as tolerated and stable -- DVT prophylaxis Current Visit: Yes Status: Acute SCDs bilateral lower extremities while in bed -- Advance care planning Current Visit: Yes Status: Acute Disease education conducted, care plan discussed, diagnosis discussed, prognosis discussed, patient is full code, patient family knowledges understanding and agreement with care plan, +30 minutes. Follow neuro evaluation and recommendations I discussed in detail with patient's daughter over the phone while visiting I explained in detail patient's condition treatment plan tests and reports, c onsultants recommendations, plan of care Delay of the MRI pending reports from [facility]. I answered all her questions And encouraged her to call back if she has any new concerns Brief history: Patient was admitted with acute CVA not a candidate for TPA, neuro work-up is in progress however patient has history of Cerebral aneurysm status post surgery with coil, CERTIFIED PEST CONTROL TECHNICIAN shunt. Radiologist wanted to know if the material used in the surgery is MRI compatible Records requested from [place] pending clearance for MRI 04/12/2021; patient more alert and awake today, dysarthria, confused at times Restraint for safety, follow neurology evaluation recommendations, follow neuro work-up History Interval history: Patient is more alert and awake today, confused intermittently Acute CVA with residual weakness Neuro work-up is in progress Unable to get MRI due to cerebral aneurysm status post surgery Radiologist wanting no of the material used is MRI compatible Vital signs noted Hospitalist Physical - Constitutional Vitals: Temp Pulse Resp BP Pulse Ox 98.0 F 83 20 140/86 90 04/12/21 07:38 04/12/21 07:38 04/12/21 07:38 04/12/21 07:38 04/12/21 07:38 General appearance: Present: mild distress, obese, other (Confused agitated restrained) - EENT Eyes: Present: PERRL, EOM intact - Neck Neck: Present: supple, normal ROM - Respiratory Respiratory effort: normal, labored Respiratory: bilateral: diminished, negative: rales, rhonchi, wheezing - Cardiovascular Rhythm: regular Heart Sounds: Present: S1 & S2 - Extremities Extremities: no ischemia, No edema - Abdominal General gastrointestinal: soft, non-tender, non-distended, normal bowel sounds - Integumentary Integumentary: Present: clear, warm - Psychiatric Psychiatric: agitated, other (Confused at times) - Neurologic Neurologic: moves all extremities HEART Score - HEART Score Troponin: Troponin T < 0.010 ng/mL (0.00-0.029) 04/10/21 15:46 Results - Labs CBC & Chem 7: 04/10/21 15:46 04/10/21 15:46 Labs: Laboratory Last Values WBC 7.3 K/mm3 (4.5-11.0) 04/10/21 15:46 RBC 4.84 M/mm3 (3.65-5.03) 04/10/21 15:46 Hgb 14.6 gm/dl (11.8-15.2) 04/10/21 15:46 Hct 42.9 % (35.5-45.6) 04/10/21 15:46 MCV 89 fl (84-94) 04/10/21 15:46 MCH 30 pg (28-32) 04/10/21 15:46 MCHC 34 % (32-34) 04/10/21 15:46 RDW 14.6 % (13.2-15.2) 04/10/21 15:46 Plt Count 235 K/mm3 (140-440) 04/10/21 15:46 Lymph % (Auto) 22.3 % (13.4-35.0) 04/10/21 15:46 [place] % (Auto) 12.8 % (0.0-7.3) H 04/10/21 15:46 Eos % (Auto) 0.5 % (0.0-4.3) 04/10/21 15:46 Baso % (Auto) 0.5 % (0.0-1.8) 04/10/21 15:46 Lymph # (Auto) 1.6 K/mm3 (1.2-5.4) 04/10/21 15:46 [place] # (Auto) 0.9 K/mm3 (0.0-0.8) H 04/10/21 15:46 Eos # (Auto) 0.0 K/mm3 (0.0-0.4) 04/10/21 15:46 Baso # (Auto) 0.0 K/mm3 (0.0-0.1) 04/10/21 15:46 Seg Neutrophils % 63.9 % (40.0-70.0) 04/10/21 15:46 Seg Neutrophils # 4.7 K/mm3 (1.8-7.7) 04/10/21 15:46 Sodium 141 mmol/L (137-145) 04/10/21 15:46 Potassium 3.5 mmol/L (3.6-5.0) L 04/10/21 15:46 Chloride 106.8 mmol/L (98-107) 04/10/21 15:46 Carbon Dioxide 22 mmol/L (22-30) 04/10/21 15:46 Anion Gap 16 mmol/L 04/10/21 15:46 BUN 19 mg/dL (9-20) 04/10/21 15:46 Creatinine 1.2 mg/dL (0.8-1.3) 04/10/21 15:46 Estimated GFR > 60 ml/min 04/10/21 15:46 BUN/Creatinine Ratio 16 % 04/10/21 15:46 Glucose 96 mg/dL (75-100) 04/10/21 15:46 Calcium 9.7 mg/dL (8.4-10.2) 04/10/21 15:46 Total Bilirubin 0.50 mg/dL (0.1-1.2) 04/10/21 15:46 AST 16 units/L (5-40) 04/10/21 15:46 ALT 16 units/L (7-56) 04/10/21 15:46 Alkaline Phosphatase 110 units/L (35-129) 04/10/21 15:46 Troponin T < 0.010 ng/mL (0.00-0.029) 04/10/21 15:46 Total Protein 7.9 g/dL (6.3-8.2) 04/10/21 15:46 Albumin 4.1 g/dL (3.9-5) 04/10/21 15:46 Albumin/Globulin Ratio 1.1 % 04/10/21 15:46 Triglycerides 75 mg/dL (2-149) 04/11/21 04:19 Cholesterol 132 mg/dL (50-199) 04/11/21 04:19 LDL Cholesterol Direct 91 mg/dL (50-130) 04/11/21 04:19 HDL Cholesterol 40 mg/dL (40-59) 04/11/21 04:19 Cholesterol/HDL Ratio 3.30 % 04/11/21 04:19 Osborne/IV: Voiding Method Condom Catheter Active Medications - Current Medications Current Medications: Generic Name Dose Route Start Last Admin Trade Name Freq PRN Reason Stop Dose Admin Acetaminophen 650 mg 04/10/21 17:31 Acetaminophen 325 Mg Tab PO Q4H PRN Pain, Mild (1-3) Albuterol 2.5 mg 04/10/21 17:31 Albuterol 2.5 Mg/3 Ml Nebu IH Q3HRT PRN Shortness Of Breath Aspirin 325 mg 04/11/21 10:00 04/12/21 10:17 Aspirin 325 Mg Tab PO 325 mg QDAY BRAXTON Administration Atorvastatin Calcium 40 mg 04/10/21 22:00 04/11/21 21:11 Atorvastatin 40 Mg Tab PO 40 mg QHS BRAXTON Administration Bisacodyl 10 mg 04/10/21 17:31 Bisacodyl 10 Mg Rect Supp SD QDAY PRN Constipation Levetiracetam 1,000 mg/ 110 mls @ 400 mls/hr 04/11/21 15:00 04/12/21 10:17 Dextrose IV 400 mls/hr Q12HR BRAXTON Administration Magnesium Hydroxide 30 ml 04/10/21 17:31 Magnesium Hydroxide (Mom) Oral Liqd Udc PO Q4H PRN Constipation Metoclopramide HCl 10 mg 04/10/21 17:31 Metoclopramide 10 Mg Tab PO Q6H PRN Nausea And Vomiting Ondansetron HCl 4 mg 04/10/21 17:31 Ondansetron 4 Mg/2 Ml Inj IV Q8H PRN Nausea And Vomiting Promethazine HCl 25 mg 04/10/21 17:31 Promethazine 25 Mg Rect Supp SD Q6H PRN Nausea And Vomiting Sodium Chloride 10 ml 04/10/21 17:31 Sodium Chloride 0.9% 10 Ml Flush Syringe IV PRN PRN LINE FLUSH Nutrition/Malnutrition Assess - Dietary Evaluation Nutrition/Malnutrition Findings: Nutrition Notes Start: 04/11/21 13:20 Freq: Status: Active Protocol: Document 04/11/21 13:20 (Rec: 04/11/21 13:23 [email or web address]) Nutrition Notes Need for Assessment generated from: banquet lead,MST Initial or Follow up Brief Note Current Diagnosis Hypertension,Stroke Other Pertinent Diagnosis hx of brain aneurysm Current Diet pureed with thins Subjective/Other Information RN screen for MST. Per chart, no wt loss since 2019. Pt states he is hungry and no recent appetite changes. Nutrition Intervention Revisit per MD consult or patient Sign Off request:
[2021-04-12] MEDS: D5W/0.9% NACL 1,000 ML IV SCH ×2 (12:07→21:22)
[2021-04-13] MEDS: ASPIRIN 325 MG TAB PO SCH (09:17)
[2021-04-13] MEDS: levETIRAcetam 1,000 MG in DEXTROSE 5% IN WATER 100 ML IV SCH ×2 (09:26→21:06)
[2021-04-13] MEDS: D5W/0.9% NACL 1,000 ML IV SCH (09:26)
[2021-04-14] MEDS: D5W/0.9% NACL 1,000 ML IV SCH ×2 (05:38→15:54)
--- NOTE | 2021-04-14 08:07 | Progress Note ---
Assessment and Plan Assessment and Plan --Acute CVA (cerebral vascular accident) Current Visit: Yes Status: Acute Not a candidate for TPA , neuro work-up is in progress Neurochecks, aspirin and statin MRI brain, MRA brain, CTA head, CTA neck Bedside swallow, diet as tolerated Physical therapy .occupational therapy, speech therapy rehabilitation Supportive care ,Neurology consult Imaging studies; First CT head without contrast; branch acute/subacute MCA infarct on the right without hemorrhagic transformation 2 ventricular catheter seen no signs of hydrocephalus Follow-up CT head without contrast; subacute infarct MCA distribution in the right Nonspecific white matter changes in the periventricular and central white matter 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 --Hypertension Current Visit: Yes Status: Acute Permissive hypertension per stroke protocol --History of brain surgery/HOME PERFORMANCE LABORER shunt/aneurysm coil 2009 Current Visit: Yes Status: Acute Requested medical records from [facility] to clear for MRI study -- Obesity BMI 36.0 Current Visit: Yes Status: Acute patient needs outpatient weight reduction Dietary modification, exercise as tolerated and stable -- DVT prophylaxis Current Visit: Yes Status: Acute SCDs bilateral lower extremities while in bed -- Advance care planning Current Visit: Yes Status: Acute Disease education conducted, care plan discussed, diagnosis discussed, prognosis discussed, patient is full code, patient family knowledges understanding and agreement with care plan, +30 minutes. Follow neuro evaluation and recommendations I discussed in detail with patient's daughter over the phone while visiting I explained in detail patient's condition treatment plan tests and reports, consultants recommendations, plan of care Delay of the MRI pending reports from [facility]. I answered all her questions And encouraged her to call back if she has any new concerns Subjective Date of service: 04/13/21 Interval history: Brief history: Patient was admitted with acute CVA not a candidate for TPA, neuro work-up is in progress however patient has history of Cerebral aneurysm status post surgery with coil, HOME PERFORMANCE LABORER shunt. Radiologist wanted to know if the material used in the surgery is MRI compatible Records requested from [facility] pending clearance for MRI 04/12/2021; patient more alert and awake today, dysarthria, confused at times Restraint for safety, follow neurology evaluation recommendations, follow neuro work-up History Interval history: Patient is more alert and awake today, confused intermittently Acute CVA with residual weakness Neuro work-up is in progress Unable to get MRI due to cerebral aneurysm status post surgery Radiologist wanting no of the material used is MRI compatible Vital signs noted Objective - Constitutional Vitals: Vital Signs - 12hr 04/13/21 04/13/21 04/13/21 20:18 21:29 22:00 Temperature 97.3 F L Pulse Rate 70 69 Respiratory 18 Rate Blood Pressure 130/97 O2 Sat by Pulse 97 94 Oximetry 04/13/21 04/13/21 04/14/21 23:00 23:27 04:20 Temperature 97.4 F L 98.2 F Pulse Rate 75 74 Respiratory 18 19 Rate Blood Pressure 141/93 126/87 O2 Sat by Pulse 93 89 92 Oximetry - Labs CBC & Chem 7: 04/10/21 15:46 04/10/21 15:46 HEART Score - HEART Score Troponin: Troponin T < 0.010 ng/mL (0.00-0.029) 04/10/21 15:46
[2021-04-14] MEDS: ASPIRIN 325 MG TAB PO SCH (09:12)
[2021-04-14] MEDS: levETIRAcetam 1,000 MG in DEXTROSE 5% IN WATER 100 ML IV SCH (09:15)
--- NOTE | 2021-04-14 12:21 | Progress Note ---
Assessment and Plan Assessment and Plan --Acute CVA (cerebral vascular accident) Current Visit: Yes Status: Acute Not a candidate for TPA , neuro work-up is in progress Neurochecks, aspirin and statin MRI brain, MRA brain, CTA head, CTA neck Bedside swallow, diet as tolerated Physical therapy .occupational therapy, speech therapy rehabilitation Supportive care ,Neurology consult Imaging studies; First CT head without contrast; branch acute/subacute MCA infarct on the right without hemorrhagic transformation 2 ventricular catheter seen no signs of hydrocephalus Follow-up CT head without contrast; subacute infarct MCA distribution in the right Nonspecific white matter changes in the periventricular and central white matter SECURITY GUARD DISPATCHER shunt catheters unchanged --Hypertension Current Visit: Yes Status: Acute Permissive hypertension per stroke protocol --History of brain surgery/SECURITY GUARD DISPATCHER shunt/aneurysm coil 2009 Current Visit: Yes Status: Acute Requested medical records from [place] to clear for MRI study -- Obesity BMI 36.0 Current Visit: Yes Status: Acute patient needs outpatient weight reduction Dietary modification, exercise as tolerated and stable -- DVT prophylaxis Current Visit: Yes Status: Acute SCDs bilateral lower extremities while in bed -- Advance care planning Current Visit: Yes Status: Acute Disease education conducted, care plan discussed, diagnosis discussed, prognosis discussed, patient is full code, patient family knowledges understanding and agreement with care plan, +30 minutes. Follow neuro evaluation and recommendations I discussed in detail with patient's daughter over the phone while visiting I explained in detail patient's condition treatment plan tests and reports, consultants recommendations, plan of care Delay of the MRI pending reports from [facility]. I answered all her questions And encouraged her to call back if she has any new concerns Subjective Date of service: 04/14/21 Interval history: Brief history: Patient was admitted with acute CVA not a candidate for TPA, neuro work-up is in progress however patient has history of Cerebral aneurysm status post surgery with coil, SECURITY GUARD DISPATCHER shunt. Radiologist wanted to know if the material used in the surgery is MRI compatible Records requested from [place] pending clearance for MRI 04/12/2021; patient more alert and awake today, dysarthria, confused at times Restraint for safety, follow neurology evaluation recommendations, follow neuro work-up History Interval history: Patient is more alert and awake today, confused intermittently Acute CVA with residual weakness Neuro work-up is in progress Unable to get MRI due to cerebral aneurysm status post surgery Radiologist wanting no of the material used is MRI compatible Vital signs noted Objective - Constitutional Vitals: Vital Signs - 12hr 04/14/21 04/14/21 04/14/21 04:20 08:24 09:21 Temperature 98.2 F 98.9 F Pulse Rate 74 62 Respiratory 19 20 Rate Blood Pressure 126/87 148/72 O2 Sat by Pulse 92 90 93 Oximetry 04/14/21 09:35 Temperature Pulse Rate 57 L Respiratory Rate Blood Pressure O2 Sat by Pulse Oximetry General appearance: Present: no acute distress, well-nourished - EENT Eyes: PERRL, EOM intact ENT: hearing intact, clear oral mucosa Ears: bilateral: normal - Neck Neck: supple, normal ROM - Respiratory Respiratory effort: normal Respiratory: bilateral: CTA - Breasts Breasts: normal - Cardiovascular Rhythm: regular Heart Sounds: Present: S1 & S2. Absent: gallop, rub Extremities: pulses intact, No edema, normal color, Full ROM - Gastrointestinal General gastrointestinal: Present: soft, non-tender, non-distended, normal bowel sounds - Genitourinary Male genitourinary: normal - Integumentary Integumentary: clear, warm, dry - Musculoskeletal Musculoskeletal: 1, strength equal bilaterally - Neurologic Neurologic: moves all extremities - Psychiatric Psychiatric: memory intact, appropriate mood/affect, intact judgment & insight - Labs CBC & Chem 7: 04/10/21 15:46 04/10/21 15:46 HEART Score - HEART Score Troponin: Troponin T < 0.010 ng/mL (0.00-0.029) 04/10/21 15:46
[2021-04-14] MEDS: levETIRAcetam 500 MG TAB PO SCH (21:51)
[2021-04-15] MEDS: ASPIRIN 325 MG TAB PO SCH (09:28)
[2021-04-15] MEDS: levETIRAcetam 500 MG TAB PO SCH ×2 (09:28→21:35)
--- NOTE | 2021-04-16 07:23 | Progress Note ---
Assessment and Plan Assessment and Plan --Acute CVA (cerebral vascular accident) Current Visit: Yes Status: Acute Not a candidate for TPA , neuro work-up is in progress Neurochecks, aspirin and statin MRI brain, MRA brain, CTA head, CTA neck Bedside swallow, diet as tolerated Physical therapy .occupational therapy, speech therapy rehabilitation Supportive care ,Neurology consult Imaging studies; First CT head without contrast; branch acute/subacute MCA infarct on the right without hemorrhagic transformation 2 ventricular catheter seen no signs of hydrocephalus Follow-up CT head without contrast; subacute infarct MCA distribution in the right Nonspecific white matter changes in the periventricular and central white matter PAPERHANGER PIPE shunt catheters unchanged Patient is 4/5 power in left upper and left lower extremity Able to stand and walk with minimal help needs subacute rehab --Hypertension Current Visit: Yes Status: Acute Permissive hypertension per stroke protocol --History of brain surgery/PAPERHANGER PIPE shunt/aneurysm coil 2009 Current Visit: Yes Status: Acute Requested medical records from [facility] for MRI study -- Obesity BMI 36.0 Current Visit: Yes Status: Acute patient needs outpatient weight reduction Dietary modification, exercise as tolerated and stable -- DVT prophylaxis Current Visit: Yes Status: Acute SCDs bilateral lower extremities while in bed -- Advance care planning Current Visit: Yes Status: Acute Disease education conducted, care plan discussed, diagnosis discussed, prognosis discussed, patient is full code, patient family knowledges understanding and agreement with care plan, +30 minutes. Follow neuro evaluation and recommendations Discussed in detail with patient's daughter who is at bedside Discussed the diagnosis and prognosis Prognosis is good given the minimal weakness on the left side Patient is alert and oriented and smiling Placement issues Subjective Date of service: 04/15/21 Principal diagnosis: Acute CVA Interval history: Brief history: Patient was admitted with acute CVA not a candidate for TPA, neuro work-up is in progress however patient has history of Cerebral aneurysm status post surgery with coil, PAPERHANGER PIPE shunt. Radiologist wanted to know if the material used in the surgery is MRI compatible Records requested from [facility] pending clearance for MRI 04/12/2021; patient more alert and awake today, dysarthria, confused at times Restraint for safety, follow neurology evaluation recommendations, follow neuro work-up 04/13/2021 Patient has left-sided weakness Needs rehab 04/14/2021 Patient has left-sided weakness 4/5 power in left upper extremity and left lower extremity Needs rehab 04/15/2021 Patient has left-sided weakness 4/5 power Daughter at bedside Discussed with daughter is diagnosis and prognosis Given the strength of 4/5 power in left upper and left lower extremity patient should return to baseline in the next few weeks Patient to get subacute rehab History Interval history: Patient is more alert and awake today, confused intermittently Acute CVA with residual weakness Neuro work-up is in progress Unable to get MRI due to cerebral aneurysm status post surgery Radiologist wanting no of the material used is MRI compatible Vital signs noted Objective - Constitutional Vitals: Vital Signs - 12hr 04/15/21 04/15/21 04/16/21 22:00 23:34 03:45 Temperature 98.1 F 98.2 F Pulse Rate 61 64 63 Respiratory 18 17 19 Rate Blood Pressure 158/93 125/94 O2 Sat by Pulse 98 96 95 Oximetry General appearance: Present: no acute distress, well-nourished - EENT Eyes: PERRL, EOM intact ENT: hearing intact, clear oral mucosa Ears: bilateral: normal - Neck Neck: supple, normal ROM - Respiratory Respiratory effort: normal Respiratory: bilateral: CTA - Breasts Breasts: normal - Cardiovascular Heart rate: 78 Rhythm: regular Heart Sounds: Present: S1 & S2. Absent: gallop, rub Extremities: pulses intact, No edema, normal color, Full ROM - Gastrointestinal General gastrointestinal: Present: soft, non-tender, non-distended, normal bowel sounds - Genitourinary Male genitourinary: normal - Integumentary Integumentary: clear, warm, dry - Musculoskeletal Musculoskeletal: left sided weakness (4/5 power in left upper extremity and left lower extremity) - Neurologic Neurologic: moves all extremities - Psychiatric Psychiatric: memory intact, appropriate mood/affect, intact judgment & insight - Labs CBC & Chem 7: 04/10/21 15:46 04/10/21 15:46 HEART Score - HEART Score Troponin: Troponin T < 0.010 ng/mL (0.00-0.029) 04/10/21 15:46
[2021-04-16] MEDS: ASPIRIN 325 MG TAB PO SCH (09:39)
[2021-04-16] MEDS: levETIRAcetam 500 MG TAB PO SCH ×2 (09:39→21:38)
--- NOTE | 2021-04-16 12:10 | Progress Note ---
Assessment and Plan Assessment and plan: Imaging studies; First CT head without contrast; branch acute/subacute MCA infarct on the right without hemorrhagic transformation 2 ventricular catheter seen no signs of hydrocephalus Follow-up CT head without contrast; subacute infarct MCA distribution in the right Nonspecific white matter changes in the periventricular and central white matter VICE PRESIDENT OF PROCUREMENT shunt catheters unchanged Unable to get MRI due to VICE PRESIDENT OF PROCUREMENT shunt and aneurysm coil --Acute CVA (cerebral vascular accident) Current Visit: Yes Status: Acute Not a candidate for TPA , Continue aspirin and statin Extensive neuro work-up reviewed Tolerating mechanical soft diet PT OT ST, DC planning subacute rehab --Hypertension Current Visit: Yes Status: Acute Permissive hypertension per stroke protocol --History of brain surgery/VICE PRESIDENT OF PROCUREMENT shunt/aneurysm coil 2009 Current Visit: Yes Status: Acute Requested medical records from [facility] to [facility] for MRI study -- Obesity BMI 36.0 Current Visit: Yes Status: Acute patient needs outpatient weight reduction Dietary modification, exercise as tolerated and stable -- DVT prophylaxis Current Visit: Yes Status: Acute SCDs bilateral lower extremities while in bed -- Advance care planning Current Visit: Yes Status: Acute Disease education conducted, care plan discussed, diagnosis discussed, prognosis discussed, patient is full code, patient family knowledges understanding and agreement with care plan, +30 minutes. Follow neuro evaluation and recommendations I discussed in detail with patient's daughter over the phone while visiting I explained in detail patient's condition treatment plan tests and reports, consultants recommendations, plan of care Delay of the MRI pending reports from [facility]. I answered all her questions And encouraged her to call back if she has any new concerns Brief history: Patient was admitted with acute CVA not a candidate for TPA, neuro work-up is in progress however patient has history of Cerebral aneurysm status post surgery with coil, VICE PRESIDENT OF PROCUREMENT shunt. Radiologist wanted to know if the material used in the surgery is MRI compatible Records requested from [facility] pending clearance for MRI 04/12/2021; patient more alert and awake today, dysarthria, confused at times Restraint for safety, follow neurology evaluation recommendations, follow neuro work-up Resumed service; 04/16/2021; patient is more alert and awake. Responding appropriately No new complaints, vital signs reviewed Continue PT OT, DC in 1 to 2 days if stable History Interval history: I have seen and examined the patient at the bedside Patient's chart and medications reviewed Patient is more alert and awake loud and upbeat Oriented, responding appropriately No new complaints Vital signs noted Hospitalist Physical - Constitutional Vitals: Temp Pulse Resp BP Pulse Ox 97.9 F 56 L 16 137/89 97 04/16/21 08:09 04/16/21 08:09 04/16/21 10:00 04/16/21 08:09 04/16/21 10:00 General appearance: Present: no acute distress, well-nourished - EENT Eyes: Present: PERRL, EOM intact - Neck Neck: Present: supple, normal ROM - Respiratory Respiratory effort: normal Respiratory: bilateral: diminished, negative: rales, rhonchi, wheezing - Cardiovascular Rhythm: regular Heart Sounds: Present: S1 & S2 - Extremities Extremities: no ischemia, No edema - Abdominal General gastrointestinal: soft, non-tender, non-distended, normal bowel sounds - Integumentary Integumentary: Present: clear, warm - Psychiatric Psychiatric: appropriate mood/affect, cooperative - Neurologic Neurologic: CNII-XII intact, moves all extremities HEART Score - HEART Score Troponin: Troponin T < 0.010 ng/mL (0.00-0.029) 04/10/21 15:46 Results - Labs CBC & Chem 7: 04/10/21 15:46 04/10/21 15:46 Labs: Laboratory Last Values WBC 7.3 K/mm3 (4.5-11.0) 04/10/21 15:46 RBC 4.84 M/mm3 (3.65-5.03) 04/10/21 15:46 Hgb 14.6 gm/dl (11.8-15.2) 04/10/21 15:46 Hct 42.9 % (35.5-45.6) 04/10/21 15:46 MCV 89 fl (84-94) 04/10/21 15:46 MCH 30 pg (28-32) 04/10/21 15:46 MCHC 34 % (32-34) 04/10/21 15:46 RDW 14.6 % (13.2-15.2) 04/10/21 15:46 Plt Count 235 K/mm3 (140-440) 04/10/21 15:46 Lymph % (Auto) 22.3 % (13.4-35.0) 04/10/21 15:46 [place] % (Auto) 12.8 % (0.0-7.3) H 04/10/21 15:46 Eos % (Auto) 0.5 % (0.0-4.3) 04/10/21 15:46 Baso % (Auto) 0.5 % (0.0-1.8) 04/10/21 15:46 Lymph # (Auto) 1.6 K/mm3 (1.2-5.4) 04/10/21 15:46 [place] # (Auto) 0.9 K/mm3 (0.0-0.8) H 04/10/21 15:46 Eos # (Auto) 0.0 K/mm3 (0.0-0.4) 04/10/21 15:46 Baso # (Auto) 0.0 K/mm3 (0.0-0.1) 04/10/21 15:46 Seg Neutrophils % 63.9 % (40.0-70.0) 04/10/21 15:46 Seg Neutrophils # 4.7 K/mm3 (1.8-7.7) 04/10/21 15:46 Sodium 141 mmol/L (137-145) 04/10/21 15:46 Potassium 3.5 mmol/L (3.6-5.0) L 04/10/21 15:46 Chloride 106.8 mmol/L (98-107) 04/10/21 15:46 Carbon Dioxide 22 mmol/L (22-30) 04/10/21 15:46 Anion Gap 16 mmol/L 04/10/21 15:46 BUN 19 mg/dL (9-20) 04/10/21 15:46 Creatinine 1.2 mg/dL (0.8-1.3) 04/10/21 15:46 Estimated GFR > 60 ml/min 04/10/21 15:46 BUN/Creatinine Ratio 16 % 04/10/21 15:46 Glucose 96 mg/dL (75-100) 04/10/21 15:46 Calcium 9.7 mg/dL (8.4-10.2) 04/10/21 15:46 Total Bilirubin 0.50 mg/dL (0.1-1.2) 04/10/21 15:46 AST 16 units/L (5-40) 04/10/21 15:46 ALT 16 units/L (7-56) 04/10/21 15:46 Alkaline Phosphatase 110 units/L (35-129) 04/10/21 15:46 Troponin T < 0.010 ng/mL (0.00-0.029) 04/10/21 15:46 Total Protein 7.9 g/dL (6.3-8.2) 04/10/21 15:46 Albumin 4.1 g/dL (3.9-5) 04/10/21 15:46 Albumin/Globulin Ratio 1.1 % 04/10/21 15:46 Triglycerides 75 mg/dL (2-149) 04/11/21 04:19 Cholesterol 132 mg/dL (50-199) 04/11/21 04:19 LDL Cholesterol Direct 91 mg/dL (50-130) 04/11/21 04:19 HDL Cholesterol 40 mg/dL (40-59) 04/11/21 04:19 Cholesterol/HDL Ratio 3.30 % 04/11/21 04:19 [place]/IV: Voiding Method Condom Catheter Active Medications - Current Medications Current Medications: Generic Name Dose Route Start Last Admin Trade Name Freq PRN Reason Stop Dose Admin Acetaminophen 650 mg 04/10/21 17:31 Acetaminophen 325 Mg Tab PO Q4H PRN Pain, Mild (1-3) Albuterol 2.5 mg 04/10/21 17:31 Albuterol 2.5 Mg/3 Ml Nebu IH Q3HRT PRN Shortness Of Breath Aspirin 325 mg 04/11/21 10:00 04/16/21 09:39 Aspirin 325 Mg Tab PO 325 mg QDAY BRAXTON Administration Atorvastatin Calcium 40 mg 04/10/21 22:00 04/15/21 21:35 Atorvastatin 40 Mg Tab PO 40 mg QHS BRAXTON Administration Bisacodyl 10 mg 04/10/21 17:31 Bisacodyl 10 Mg Rect Supp ME QDAY PRN Constipation Dextrose/Sodium Chloride 1,000 mls @ 100 mls/hr 04/12/21 12:00 04/14/21 15:54 D5ns IV 100 mls/hr DIRECT BRAXTON Administration Levetiracetam 1,000 mg 04/14/21 22:00 04/16/21 09:39 Levetiracetam 500 Mg Tab PO 1,000 mg BID BRAXTON Administration Magnesium Hydroxide 30 ml 04/10/21 17:31 Magnesium Hydroxide (Mom) Oral Liqd Udc PO Q4H PRN Constipation Metoclopramide HCl 10 mg 04/10/21 17:31 Metoclopramide 10 Mg Tab PO Q6H PRN Nausea And Vomiting Ondansetron HCl 4 mg 04/10/21 17:31 Ondansetron 4 Mg/2 Ml Inj IV Q8H PRN Nausea And Vomiting Promethazine HCl 25 mg 04/10/21 17:31 Promethazine 25 Mg Rect Supp ME Q6H PRN Nausea And Vomiting Sodium Chloride 10 ml 04/10/21 17:31 Sodium Chloride 0.9% 10 Ml Flush Syringe IV PRN PRN LINE FLUSH Nutrition/Malnutrition Assess - Dietary Evaluation Nutrition/Malnutrition Findings: Nutrition Notes Start: 04/11/21 13:20 Freq: Status: Active Protocol: Document 04/11/21 13:20 (Rec: 04/11/21 13:23 [email or web address]) Nutrition Notes Need for Assessment generated from: surveillance supervisor,MST Initial or Follow up Brief Note Current Diagnosis Hypertension,Stroke Other Pertinent Diagnosis hx of brain aneurysm Current Diet pureed with thins Subjective/Other Information RN screen for MST. Per chart, no wt loss since 2019. Pt states he is hungry and no recent appetite changes. Nutrition Intervention Revisit per MD consult or patient Sign Off request:
[2021-04-17 06:33] LABS: BUN/Creatinine Ratio 20; Blood Urea Nitrogen 18 mg/dL (9-20); Calcium 8.5 mg/dL (8.4-10.2); Hemolysis Index 58
[2021-04-17] MEDS: ASPIRIN 325 MG TAB PO SCH (09:45)
[2021-04-17] MEDS: levETIRAcetam 500 MG TAB PO SCH ×2 (09:45→21:12)
--- NOTE | 2021-04-17 17:34 | Progress Note ---
Assessment and Plan Assessment and plan: Imaging studies; First CT head without contrast; branch acute/subacute MCA infarct on the right without hemorrhagic transformation 2 ventricular catheter seen no signs of hydrocephalus Follow-up CT head without contrast; subacute infarct MCA distribution in the right Nonspecific white matter changes in the periventricular and central white matter CARBON CUTTER shunt catheters unchanged Unable to get MRI due to CARBON CUTTER shunt and aneurysm coil --Acute CVA (cerebral vascular accident) Current Visit: Yes Status: Acute Not a candidate for TPA , Continue aspirin and statin Extensive neuro work-up reviewed Tolerating mechanical soft diet PT OT ST, DC planning subacute rehab --Metabolic encephalopathy/ing; Current Visit: Yes Status: Acute Patient is alert awake cheerful during the daytime However during evenings and nights patient has severe confusion Agitation pulling everything, requiring restraints. We will closely monitor, restraint for safety as needed --Hypertension Current Visit: Yes Status: Acute Well-controlled, continue current antihypertensives --History of brain surgery/CARBON CUTTER shunt/aneurysm coil 2009 Current Visit: Yes Status: Acute Requested medical records from [place] for MRI study Unable to get MRI due to lack of information to [place] for the study -- Obesity BMI 36.0 Current Visit: Yes Status: Acute patient needs outpatient weight reduction Dietary modification, exercise as tolerated and stable -- DVT prophylaxis Current Visit: Yes Status: Acute SCDs bilateral lower extremities while in bed -- Advance care planning; Current Visit: Yes Status: Acute Disease education conducted, care plan discussed, diagnosis discussed, prognosis discussed, patient is full code, patient family knowledges understanding and agreement with care plan, +30 minutes. Follow neuro evaluation and recommendations I discussed in detail with patient's daughter over the phone while visiting I explained in detail patient's condition treatment plan tests and reports, consultants recommendations, plan of care Delay of the MRI pending reports from [facility]. I answered all her questions And encouraged her to call back if she has any new concerns Brief history and daily hospital course Patient was admitted with acute CVA not a candidate for TPA, neuro work-up is in progress however patient has history of Cerebral aneurysm status post surgery with coil, CARBON CUTTER shunt. Radiologist wanted to know if the material used in the surgery is MRI compatible Records requested from [place] pending clearance for MRI 04/12/2021; patient more alert and awake today, dysarthria, confused at times Restraint for safety, follow neurology evaluation recommendations, follow neuro work-up Resumed service; 04/16/2021; patient is more alert and awake. Responding appropriately No new complaints, vital signs reviewed Continue PT OT, DC in 1 to 2 days if stable 04/17/2021; patient feels better, continue current management Restraint during nights due to sundowning and confusion Recommend subacute rehab, pending placemen daughter requests subacute rehab at [place] for discharge Case management processing, pending insurance authorization History Interval history: I have seen and examined the patient at the bedside Patient's chart and medications reviewed Patient is alert and awake responding appropriately cheerful However during the evenings and nights he gets confused requiring Restraints. Patient tolerated PT Vital signs noted Hospitalist Physical - Constitutional Vitals: Temp Pulse Resp BP Pulse Ox 98.0 F 75 18 145/86 92 04/17/21 16:16 04/17/21 16:16 04/17/21 16:16 04/17/21 16:16 04/17/21 16:16 General appearance: Present: no acute distress, well-nourished - EENT Eyes: Present: PERRL, EOM intact - Neck Neck: Present: supple, normal ROM - Respiratory Respiratory effort: normal Respiratory: bilateral: diminished, negative: rales, rhonchi, wheezing - Cardiovascular Rhythm: regular Heart Sounds: Present: S1 & S2 - Extremities Extremities: no ischemia, pulses intact, No edema, normal temperature - Abdominal General gastrointestinal: soft, non-tender, non-distended, normal bowel sounds - Integumentary Integumentary: Present: clear, warm - Psychiatric Psychiatric: appropriate mood/affect, cooperative - Neurologic Neurologic: moves all extremities (Acute CVA with residual weakness, dysarthria significantly improved) HEART Score - HEART Score Troponin: Troponin T < 0.010 ng/mL (0.00-0.029) 04/10/21 15:46 Results - Labs CBC & Chem 7: 04/10/21 15:46 04/17/21 05:12 Labs: Laboratory Last Values WBC 7.3 K/mm3 (4.5-11.0) 04/10/21 15:46 RBC 4.84 M/mm3 (3.65-5.03) 04/10/21 15:46 Hgb 14.6 gm/dl (11.8-15.2) 04/10/21 15:46 Hct 42.9 % (35.5-45.6) 04/10/21 15:46 MCV 89 fl (84-94) 04/10/21 15:46 MCH 30 pg (28-32) 04/10/21 15:46 MCHC 34 % (32-34) 04/10/21 15:46 RDW 14.6 % (13.2-15.2) 04/10/21 15:46 Plt Count 235 K/mm3 (140-440) 04/10/21 15:46 Lymph % (Auto) 22.3 % (13.4-35.0) 04/10/21 15:46 [place] % (Auto) 12.8 % (0.0-7.3) H 04/10/21 15:46 Eos % (Auto) 0.5 % (0.0-4.3) 04/10/21 15:46 Baso % (Auto) 0.5 % (0.0-1.8) 04/10/21 15:46 Lymph # (Auto) 1.6 K/mm3 (1.2-5.4) 04/10/21 15:46 [place] # (Auto) 0.9 K/mm3 (0.0-0.8) H 04/10/21 15:46 Eos # (Auto) 0.0 K/mm3 (0.0-0.4) 04/10/21 15:46 Baso # (Auto) 0.0 K/mm3 (0.0-0.1) 04/10/21 15:46 Seg Neutrophils % 63.9 % (40.0-70.0) 04/10/21 15:46 Seg Neutrophils # 4.7 K/mm3 (1.8-7.7) 04/10/21 15:46 Sodium 139 mmol/L (137-145) 04/17/21 05:12 Potassium 3.7 mmol/L (3.6-5.0) 04/17/21 05:12 Chloride 109.5 mmol/L (98-107) H 04/17/21 05:12 Carbon Dioxide 18 mmol/L (22-30) L 04/17/21 05:12 Anion Gap 15 mmol/L 04/17/21 05:12 BUN 18 mg/dL (9-20) 04/17/21 05:12 Creatinine 0.9 mg/dL (0.8-1.3) 04/17/21 05:12 Estimated GFR > 60 ml/min 04/17/21 05:12 BUN/Creatinine Ratio 20 % 04/17/21 05:12 Glucose 94 mg/dL (75-100) 04/17/21 05:12 Calcium 8.5 mg/dL (8.4-10.2) 04/17/21 05:12 Phosphorus 2.90 mg/dL (2.5-4.5) 04/17/21 05:12 Magnesium 1.80 mg/dL (1.7-2.3) 04/17/21 05:12 Total Bilirubin 0.50 mg/dL (0.1-1.2) 04/10/21 15:46 AST 16 units/L (5-40) 04/10/21 15:46 ALT 16 units/L (7-56) 04/10/21 15:46 Alkaline Phosphatase 110 units/L (35-129) 04/10/21 15:46 Troponin T < 0.010 ng/mL (0.00-0.029) 04/10/21 15:46 Total Protein 7.9 g/dL (6.3-8.2) 04/10/21 15:46 Albumin 4.1 g/dL (3.9-5) 04/10/21 15:46 Albumin/Globulin Ratio 1.1 % 04/10/21 15:46 Triglycerides 75 mg/dL (2-149) 04/11/21 04:19 Cholesterol 132 mg/dL (50-199) 04/11/21 04:19 LDL Cholesterol Direct 91 mg/dL (50-130) 04/11/21 04:19 HDL Cholesterol 40 mg/dL (40-59) 04/11/21 04:19 Cholesterol/HDL Ratio 3.30 % 04/11/21 04:19 Coronavirus (PCR) Negative (Negative) 04/15/21 Unknown [place]borne/IV: Voiding Method Toilet Active Medications - Current Medications Current Medications: Generic Name Dose Route Start Last Admin Trade Name Freq PRN Reason Stop Dose Admin Acetaminophen 650 mg 04/10/21 17:31 Acetaminophen 325 Mg Tab PO Q4H PRN Pain, Mild (1-3) Albuterol 2.5 mg 04/10/21 17:31 Albuterol 2.5 Mg/3 Ml Nebu IH Q3HRT PRN Shortness Of Breath Aspirin 325 mg 04/11/21 10:00 04/17/21 09:45 Aspirin 325 Mg Tab PO 325 mg QDAY BRAXTON Administration Atorvastatin Calcium 40 mg 04/10/21 22:00 04/16/21 21:40 Atorvastatin 40 Mg Tab PO 40 mg QHS BRAXTON Administration Bisacodyl 10 mg 04/10/21 17:31 Bisacodyl 10 Mg Rect Supp WI QDAY PRN Constipation Dextrose/Sodium Chloride 1,000 mls @ 100 mls/hr 04/12/21 12:00 04/14/21 15:54 D5ns IV 100 mls/hr DIRECT BRAXTON Administration Levetiracetam 1,000 mg 04/14/21 22:00 04/17/21 09:45 Levetiracetam 500 Mg Tab PO 1,000 mg BID BRAXTON Administration Magnesium Hydroxide 30 ml 04/10/21 17:31 Magnesium Hydroxide (Mom) Oral Liqd Udc PO Q4H PRN Constipation Metoclopramide HCl 10 mg 04/10/21 17:31 Metoclopramide 10 Mg Tab PO Q6H PRN Nausea And Vomiting Ondansetron HCl 4 mg 04/10/21 17:31 Ondansetron 4 Mg/2 Ml Inj IV Q8H PRN Nausea And Vomiting Promethazine HCl 25 mg 04/10/21 17:31 Promethazine 25 Mg Rect Supp WI Q6H PRN Nausea And Vomiting Sodium Chloride 10 ml 04/10/21 17:31 Sodium Chloride 0.9% 10 Ml Flush Syringe IV PRN PRN LINE FLUSH Nutrition/Malnutrition Assess - Dietary Evaluation Nutrition/Malnutrition Findings: Nutrition Notes Start: 04/11/21 13:20 Freq: Status: Active Protocol: Document 04/11/21 13:20 (Rec: 04/11/21 13:23 [id number]) Nutrition Notes Need for Assessment generated from: asphalt spreader,MST Initial or Follow up Brief Note Current Diagnosis Hypertension,Stroke Other Pertinent Diagnosis hx of brain aneurysm Current Diet pureed with thins Subjective/Other Information RN screen for MST. Per chart, no wt loss since 2019. Pt states he is hungry and no recent appetite changes. Nutrition Intervention Revisit per MD consult or patient Sign Off request:
--- NOTE | 2021-04-17 17:54 | Event Note ---
Date: 04/17/21 I called patient's daughter Ms. Katelynn Blanchard [next of kin] at [phone], unable to contact as nobody picked up the phone, voicemail box is full, unable to leave the message. I will try again tomorrow to update the patient's condition ,treatment and discharge planning
--- NOTE | 2021-04-18 09:43 | Progress Note ---
Assessment and Plan Assessment and plan: Imaging studies; First CT head without contrast; branch acute/subacute MCA infarct on the right without hemorrhagic transformation 2 ventricular catheter seen no signs of hydrocephalus Follow-up CT head without contrast; subacute infarct MCA distribution in the right Nonspecific white matter changes in the periventricular and central white matter CABLE ARMORER shunt catheters unchanged Unable to get MRI due to CABLE ARMORER shunt and aneurysm coil --Acute CVA (cerebral vascular accident) Current Visit: Yes Status: Acute Not a candidate for TPA , Continue aspirin and statin Neuro work-up reviewed as above PT OT evaluated and recommended subacute rehab placement Family requested [facility] processing Pending insurance authorization --Metabolic encephalopathy/owning; Current Visit: Yes Status: Acute Patient is more alert and awake responding appropriately However has some confusion and agitation during nights requiring Restraints --Hypertension Current Visit: Yes Status: Acute Well-controlled, continue current antihypertensives --History of brain surgery/CABLE ARMORER shunt/aneurysm coil 2009 Current Visit: Yes Status: Acute Requested medical records from [place] to [place] for MRI study Unable to get MRI due to lack of information to [place] for the study -- Obesity BMI 36.0 Current Visit: Yes Status: Acute patient needs outpatient weight reduction Dietary modification, exercise as tolerated and stable -- DVT prophylaxis Current Visit: Yes Status: Acute SCDs bilateral lower extremities while in bed -- Advance care planning; Current Visit: Yes Status: Acute Disease education conducted, care plan discussed, diagnosis discussed, prognosis discussed, patient is full code, patient family knowledges understanding and agreement with care plan, +30 minutes. Follow neuro evaluation and recommendations I discussed in detail with patient's daughter over the phone while visiting I explained in detail patient's condition treatment plan tests and reports, consultants recommendations, plan of care Delay of the MRI pending reports from [facility]. I answered all her questions And encouraged her to call back if she has any new concerns Brief history and daily hospital course Patient was admitted with acute CVA not a candidate for TPA, neuro work-up is in progress however patient has history of Cerebral aneurysm status post surgery with coil, CABLE ARMORER shunt. Radiologist wanted to know if the material used in the surgery is MRI compatible Records requested from [place] pending clearance for MRI 04/12/2021; patient more alert and awake today, dysarthria, confused at times Restraint for safety, follow neurology evaluation recommendations, follow neuro work-up Resumed service; 04/16/2021; patient is more alert and awake. Responding appropriately No new complaints, vital signs reviewed Continue PT OT, DC in 1 to 2 days if stable 04/17/2021; patient feels better, continue current management Restraint during nights due to sundowning and confusion Recommend subacute rehab, pending placemen daughter requests subacute rehab at [place] for discharge Case management processing, pending insurance authorization 04/18/2021; awaiting subacute rehab placement at [place] Awaiting insurance authorization History Interval history: I have seen and examined the patient at the bedside Patient's chart and medications reviewed Patient wants to walk in the hallway PT evaluated the patient, recommend subacute rehab placement no new complaints Vital signs reviewed Hospitalist Physical - Constitutional Vitals: Temp Pulse Resp BP Pulse Ox 98.2 F 63 19 151/99 94 04/18/21 09:28 04/18/21 09:28 04/18/21 09:28 04/18/21 09:28 04/18/21 09:28 General appearance: Present: no acute distress, well-nourished - EENT Eyes: Present: PERRL, EOM intact - Neck Neck: Present: supple, normal ROM - Respiratory Respiratory effort: normal Respiratory: bilateral: diminished, negative: rales, rhonchi, wheezing - Cardiovascular Rhythm: regular Heart Sounds: Present: S1 & S2 - Extremities Extremities: no ischemia, No edema - Abdominal General gastrointestinal: soft, non-tender, non-distended, normal bowel sounds - Integumentary Integumentary: Present: clear, warm - Psychiatric Psychiatric: appropriate mood/affect, cooperative, other (Dysarthria) - Neurologic Neurologic: moves all extremities (Dysarthria/residual weakness) HEART Score - HEART Score Troponin: Troponin T < 0.010 ng/mL (0.00-0.029) 04/10/21 15:46 Results - Labs CBC & Chem 7: 04/10/21 15:46 04/17/21 05:12 Labs: Laboratory Last Values WBC 7.3 K/mm3 (4.5-11.0) 04/10/21 15:46 RBC 4.84 M/mm3 (3.65-5.03) 04/10/21 15:46 Hgb 14.6 gm/dl (11.8-15.2) 04/10/21 15:46 Hct 42.9 % (35.5-45.6) 04/10/21 15:46 MCV 89 fl (84-94) 04/10/21 15:46 MCH 30 pg (28-32) 04/10/21 15:46 MCHC 34 % (32-34) 04/10/21 15:46 RDW 14.6 % (13.2-15.2) 04/10/21 15:46 Plt Count 235 K/mm3 (140-440) 04/10/21 15:46 Lymph % (Auto) 22.3 % (13.4-35.0) 04/10/21 15:46 [place] % (Auto) 12.8 % (0.0-7.3) H 04/10/21 15:46 Eos % (Auto) 0.5 % (0.0-4.3) 04/10/21 15:46 Baso % (Auto) 0.5 % (0.0-1.8) 04/10/21 15:46 Lymph # (Auto) 1.6 K/mm3 (1.2-5.4) 04/10/21 15:46 [place] # (Auto) 0.9 K/mm3 (0.0-0.8) H 04/10/21 15:46 Eos # (Auto) 0.0 K/mm3 (0.0-0.4) 04/10/21 15:46 Baso # (Auto) 0.0 K/mm3 (0.0-0.1) 04/10/21 15:46 Seg Neutrophils % 63.9 % (40.0-70.0) 04/10/21 15:46 Seg Neutrophils # 4.7 K/mm3 (1.8-7.7) 04/10/21 15:46 Sodium 139 mmol/L (137-145) 04/17/21 05:12 Potassium 3.7 mmol/L (3.6-5.0) 04/17/21 05:12 Chloride 109.5 mmol/L (98-107) H 04/17/21 05:12 Carbon Dioxide 18 mmol/L (22-30) L 04/17/21 05:12 Anion Gap 15 mmol/L 04/17/21 05:12 BUN 18 mg/dL (9-20) 04/17/21 05:12 Creatinine 0.9 mg/dL (0.8-1.3) 04/17/21 05:12 Estimated GFR > 60 ml/min 04/17/21 05:12 BUN/Creatinine Ratio 20 % 04/17/21 05:12 Glucose 94 mg/dL (75-100) 04/17/21 05:12 Calcium 8.5 mg/dL (8.4-10.2) 04/17/21 05:12 Phosphorus 2.90 mg/dL (2.5-4.5) 04/17/21 05:12 Magnesium 1.80 mg/dL (1.7-2.3) 04/17/21 05:12 Total Bilirubin 0.50 mg/dL (0.1-1.2) 04/10/21 15:46 AST 16 units/L (5-40) 04/10/21 15:46 ALT 16 units/L (7-56) 04/10/21 15:46 Alkaline Phosphatase 110 units/L (35-129) 04/10/21 15:46 Troponin T < 0.010 ng/mL (0.00-0.029) 04/10/21 15:46 Total Protein 7.9 g/dL (6.3-8.2) 04/10/21 15:46 Albumin 4.1 g/dL (3.9-5) 04/10/21 15:46 Albumin/Globulin Ratio 1.1 % 04/10/21 15:46 Triglycerides 75 mg/dL (2-149) 04/11/21 04:19 Cholesterol 132 mg/dL (50-199) 04/11/21 04:19 LDL Cholesterol Direct 91 mg/dL (50-130) 04/11/21 04:19 HDL Cholesterol 40 mg/dL (40-59) 04/11/21 04:19 Cholesterol/HDL Ratio 3.30 % 04/11/21 04:19 Coronavirus (PCR) Negative (Negative) 04/15/21 Unknown Osborne/IV: Voiding Method Urinal Active Medications - Current Medications Current Medications: Generic Name Dose Route Start Last Admin Trade Name Freq PRN Reason Stop Dose Admin Acetaminophen 650 mg 04/10/21 17:31 Acetaminophen 325 Mg Tab PO Q4H PRN Pain, Mild (1-3) Albuterol 2.5 mg 04/10/21 17:31 Albuterol 2.5 Mg/3 Ml Nebu IH Q3HRT PRN Shortness Of Breath Aspirin 325 mg 04/11/21 10:00 04/17/21 09:45 Aspirin 325 Mg Tab PO 325 mg QDAY BRAXTON Administration Atorvastatin Calcium 40 mg 04/10/21 22:00 04/17/21 21:12 Atorvastatin 40 Mg Tab PO 40 mg QHS BRAXTON Administration Bisacodyl 10 mg 04/10/21 17:31 Bisacodyl 10 Mg Rect Supp [place] QDAY PRN Constipation Dextrose/Sodium Chloride 1,000 mls @ 100 mls/hr 04/12/21 12:00 04/14/21 15:54 D5ns IV 100 mls/hr DIRECT BRAXTON Administration Levetiracetam 1,000 mg 04/14/21 22:00 04/17/21 21:12 Levetiracetam 500 Mg Tab PO 1,000 mg BID BRAXTON Administration Magnesium Hydroxide 30 ml 04/10/21 17:31 Magnesium Hydroxide (Mom) Oral Liqd Udc PO Q4H PRN Constipation Metoclopramide HCl 10 mg 04/10/21 17:31 Metoclopramide 10 Mg Tab PO Q6H PRN Nausea And Vomiting Ondansetron HCl 4 mg 04/10/21 17:31 Ondansetron 4 Mg/2 Ml Inj IV Q8H PRN Nausea And Vomiting Promethazine HCl 25 mg 04/10/21 17:31 Promethazine 25 Mg Rect Supp [place] Q6H PRN Nausea And Vomiting Sodium Chloride 10 ml 04/10/21 17:31 Sodium Chloride 0.9% 10 Ml Flush Syringe IV PRN PRN LINE FLUSH Nutrition/Malnutrition Assess - Dietary Evaluation Nutrition/Malnutrition Findings: Nutrition Notes Start: 04/11/21 13:20 Freq: Status: Active Protocol: Document 04/18/21 07:59 (Rec: 04/18/21 08:00 MANINDER [id number]) Nutrition Notes Need for Assessment generated from: LOS Initial or Follow up Brief Note Subjective/Other Information Screen for LOS. Pt eating 75- 100% of meals. Nutrition Intervention Revisit per MD consult or patient Sign Off request:
[2021-04-18] MEDS: levETIRAcetam 500 MG TAB PO SCH ×2 (11:08→21:27)
[2021-04-18] MEDS: ASPIRIN 325 MG TAB PO SCH (11:08)
[2021-04-19] MEDS: ASPIRIN 325 MG TAB PO SCH (09:08)
[2021-04-19] MEDS: levETIRAcetam 500 MG TAB PO SCH ×2 (09:08→21:15)
--- NOTE | 2021-04-19 19:22 | Progress Note ---
Assessment and Plan Assessment and plan: Imaging studies; First CT head without contrast; branch acute/subacute MCA infarct on the right without hemorrhagic transformation 2 ventricular catheter seen no signs of hydrocephalus Follow-up CT head without contrast; subacute infarct MCA distribution in the right Nonspecific white matter changes in the periventricular and central white matter TYPEWRITER RIBB[employer] W[employer] shunt catheters unchanged Unable to get MRI due to TYPEWRITER RIBBON WINDER shunt and aneurysm coil --Acute CVA (cerebral vascular accident) Current Visit: Yes Status: Acute Not a candidate for TPA , Continue aspirin and statin Neuro work-up reviewed as above PT OT evaluated and recommended subacute rehab placement Family requested [facility] processing Pending insurance authorization --Metabolic encephalopathy/owning; Current Visit: Yes Status: Acute Patient is more alert and awake responding appropriately However has some confusion and agitation during nights requiring Restraints --Hypertension Current Visit: Yes Status: Acute Well-controlled, continue current antihypertensives --History of brain surgery/[employer]WRITER RIBBON W[employer] shunt/aneurysm coil 2009 Current Visit: Yes Status: Acute Requested medical records from [place] to [place] for MRI study Unable to get MRI due to lack of information to clear for the study -- Obesity BMI 36.0 Current Visit: Yes Status: Acute patient needs outpatient weight reduction Dietary modification, exercise as tolerated and stable -- DVT prophylaxis Current Visit: Yes Status: Acute SCDs bilateral lower extremities while in bed -- Advance care planning; Current Visit: Yes Status: Acute Disease education conducted, care plan discussed, diagnosis discussed, prognosis discussed, patient is full code, patient family knowledges understanding and agreement with care plan, +30 minutes. Follow neuro evaluation and recommendations I discussed in detail with patient's daughter over the phone while visiting I explained in detail patient's condition treatment plan tests and reports, consultants recommendations, plan of care Delay of the MRI pending reports from [facility]. I answered all her questions And encouraged her to call back if she has any new concerns Brief history and daily hospital course Patient was admitted with acute CVA not a candidate for TPA, neuro work-up is in progress however patient has history of Cerebral aneurysm status post surgery with coil, TYPEWRITER RIB[employer]ON W[employer]ER shunt. Radiologist wanted to know if the material used in the surgery is MRI compatible Records requested from [place] pending clearance for MRI 04/12/2021; patient more alert and awake today, dysarthria, confused at times Restraint for safety, follow neurology evaluation recommendations, follow neuro work-up Resumed service; 04/16/2021; patient is more alert and awake. Responding appropriately No new complaints, vital signs reviewed Continue PT OT, DC in 1 to 2 days if stable 04/17/2021; patient feels better, continue current management Restraint during nights due to sundowning and confusion Recommend subacute rehab, pending placemen daughter requests subacute rehab at [place] for discharge Case management processing, pending insurance authorization 04/18/2021; awaiting subacute rehab placement at [place] Awaiting insurance authorization 04/19/2021; pending placement Medically stable for discharge History Interval history: I have seen and examined the patient at the bedside during morning rounds Patient is alert and awake responding appropriately Sometimes is confused and agitated requiring restraints Awaiting SNF/subacute rehab placement Vital signs noted Hospitalist Physical - Constitutional Vitals: Temp Pulse Resp BP Pulse Ox 98.6 F 77 20 130/87 95 04/19/21 16:43 04/19/21 16:43 04/19/21 16:43 04/19/21 16:43 04/19/21 16:43 General appearance: Present: no acute distress, well-nourished, other - EENT Eyes: Present: PERRL, EOM intact - Neck Neck: Present: supple, normal ROM - Respiratory Respiratory effort: normal Respiratory: bilateral: diminished, negative: rales, rhonchi, wheezing - Cardiovascular Rhythm: regular Heart Sounds: Present: S1 & S2 - Extremities Extremities: no ischemia, No edema - Abdominal General gastrointestinal: soft, non-tender, non-distended, normal bowel sounds - Integumentary Integumentary: Present: clear, warm - Psychiatric Psychiatric: appropriate mood/affect, cooperative - Neurologic Neurologic: other (Acute CVA with residual weakness and dysarthria) HEART Score - HEART Score Troponin: Troponin T < 0.010 ng/mL (0.00-0.029) 04/10/21 15:46 Results - Labs CBC & Chem 7: 04/10/21 15:46 04/17/21 05:12 Labs: Laboratory Last Values WBC 7.3 K/mm3 (4.5-11.0) 04/10/21 15:46 RBC 4.84 M/mm3 (3.65-5.03) 04/10/21 15:46 Hgb 14.6 gm/dl (11.8-15.2) 04/10/21 15:46 Hct 42.9 % (35.5-45.6) 04/10/21 15:46 MCV 89 fl (84-94) 04/10/21 15:46 MCH 30 pg (28-32) 04/10/21 15:46 MCHC 34 % (32-34) 04/10/21 15:46 RDW 14.6 % (13.2-15.2) 04/10/21 15:46 Plt Count 235 K/mm3 (140-440) 04/10/21 15:46 Lymph % (Auto) 22.3 % (13.4-35.0) 04/10/21 15:46 [place] % (Auto) 12.8 % (0.0-7.3) H 04/10/21 15:46 Eos % (Auto) 0.5 % (0.0-4.3) 04/10/21 15:46 Baso % (Auto) 0.5 % (0.0-1.8) 04/10/21 15:46 Lymph # (Auto) 1.6 K/mm3 (1.2-5.4) 04/10/21 15:46 [place] # (Auto) 0.9 K/mm3 (0.0-0.8) H 04/10/21 15:46 Eos # (Auto) 0.0 K/mm3 (0.0-0.4) 04/10/21 15:46 Baso # (Auto) 0.0 K/mm3 (0.0-0.1) 04/10/21 15:46 Seg Neutrophils % 63.9 % (40.0-70.0) 04/10/21 15:46 Seg Neutrophils # 4.7 K/mm3 (1.8-7.7) 04/10/21 15:46 Sodium 139 mmol/L (137-145) 04/17/21 05:12 Potassium 3.7 mmol/L (3.6-5.0) 04/17/21 05:12 Chloride 109.5 mmol/L (98-107) H 04/17/21 05:12 Carbon Dioxide 18 mmol/L (22-30) L 04/17/21 05:12 Anion Gap 15 mmol/L 04/17/21 05:12 BUN 18 mg/dL (9-20) 04/17/21 05:12 Creatinine 0.9 mg/dL (0.8-1.3) 04/17/21 05:12 Estimated GFR > 60 ml/min 04/17/21 05:12 BUN/Creatinine Ratio 20 % 04/17/21 05:12 Glucose 94 mg/dL (75-100) 04/17/21 05:12 Calcium 8.5 mg/dL (8.4-10.2) 04/17/21 05:12 Phosphorus 2.90 mg/dL (2.5-4.5) 04/17/21 05:12 Magnesium 1.80 mg/dL (1.7-2.3) 04/17/21 05:12 Total Bilirubin 0.50 mg/dL (0.1-1.2) 04/10/21 15:46 AST 16 units/L (5-40) 04/10/21 15:46 ALT 16 units/L (7-56) 04/10/21 15:46 Alkaline Phosphatase 110 units/L (35-129) 04/10/21 15:46 Troponin T < 0.010 ng/mL (0.00-0.029) 04/10/21 15:46 Total Protein 7.9 g/dL (6.3-8.2) 04/10/21 15:46 Albumin 4.1 g/dL (3.9-5) 04/10/21 15:46 Albumin/Globulin Ratio 1.1 % 04/10/21 15:46 Triglycerides 75 mg/dL (2-149) 04/11/21 04:19 Cholesterol 132 mg/dL (50-199) 04/11/21 04:19 LDL Cholesterol Direct 91 mg/dL (50-130) 04/11/21 04:19 HDL Cholesterol 40 mg/dL (40-59) 04/11/21 04:19 Cholesterol/HDL Ratio 3.30 % 04/11/21 04:19 Coronavirus (PCR) Negative (Negative) 04/15/21 Unknown [place]/IV: Voiding Method Urinal Active Medications - Current Medications Current Medications: Generic Name Dose Route Start Last Admin Trade Name Freq PRN Reason Stop Dose Admin Acetaminophen 650 mg 04/10/21 17:31 04/18/21 21:26 Acetaminophen 325 Mg Tab PO 650 mg Q4H PRN Administration Pain, Mild (1-3) Albuterol 2.5 mg 04/10/21 17:31 Albuterol 2.5 Mg/3 Ml Nebu IH Q3HRT PRN Shortness Of Breath Aspirin 325 mg 04/11/21 10:00 04/19/21 09:08 Aspirin 325 Mg Tab PO 325 mg QDAY BRAXTON Administration Atorvastatin Calcium 40 mg 04/10/21 22:00 04/18/21 21:27 Atorvastatin 40 Mg Tab PO 40 mg QHS BRAXTON Administration Bisacodyl 10 mg 04/10/21 17:31 Bisacodyl 10 Mg Rect Supp AL QDAY PRN Constipation Dextrose/Sodium Chloride 1,000 mls @ 100 mls/hr 04/12/21 12:00 04/14/21 15:54 D5ns IV 100 mls/hr DIRECT BRAXTON Administration Levetiracetam 1,000 mg 04/14/21 22:00 04/19/21 09:08 Levetiracetam 500 Mg Tab PO 1,000 mg BID BRAXTON Administration Magnesium Hydroxide 30 ml 04/10/21 17:31 Magnesium Hydroxide (Mom) Oral Liqd Udc PO Q4H PRN Constipation Metoclopramide HCl 10 mg 04/10/21 17:31 Metoclopramide 10 Mg Tab PO Q6H PRN Nausea And Vomiting Ondansetron HCl 4 mg 04/10/21 17:31 Ondansetron 4 Mg/2 Ml Inj IV Q8H PRN Nausea And Vomiting Promethazine HCl 25 mg 04/10/21 17:31 04/18/21 21:27 Promethazine 25 Mg Rect Supp AL 25 mg Q6H PRN Administration Nausea And Vomiting Sodium Chloride 10 ml 04/10/21 17:31 04/18/21 21:27 Sodium Chloride 0.9% 10 Ml Flush Syringe IV 10 ml PRN PRN Administration LINE FLUSH Nutrition/Malnutrition Assess - Dietary Evaluation Nutrition/Malnutrition Findings: Nutrition Notes Start: 04/11/21 13:20 Freq: Status: Active Protocol: Document 04/18/21 07:59 MANINDER (Rec: 04/18/21 08:00 MANINDER [id number]) Nutrition Notes Need for Assessment generated from: LOS Initial or Follow up Brief Note Subjective/Other Information Screen for LOS. Pt eating 100% of meals and ONS. Nutrition Intervention Revisit per MD consult or patient Sign Off request:
--- NOTE | 2021-04-20 10:08 | Progress Note ---
Assessment and Plan Assessment and plan: --Acute CVA (cerebral vascular accident) Current Visit: Yes Status: Acute Not a candidate for TPA , Continue aspirin and statin Neuro work-up reviewed as above PT OT evaluated and recommended subacute rehab placement Family requested [facility] processing Pending insurance authorization Imaging studies; First CT head without contrast; branch acute/subacute MCA infarct on the right without hemorrhagic transformation 2 ventricular catheter seen no signs of hydrocephalus Follow-up CT head without contrast; subacute infarct MCA distribution in the right Nonspecific white matter changes in the periventricular and central white matter LOG TRUCK DRIVER shunt catheters unchanged Unable to get MRI due to LOG TRUCK DRIVER shunt and aneurysm coil --Metabolic encephalopathy/sundowning; Current Visit: Yes Status: Acute Patient is more alert and awake responding appropriately However has some confusion and agitation during nights requiring Restraints --Hypertension Current Visit: Yes Status: Acute Well-controlled, continue current antihypertensives --History of brain surgery/LOG TRUCK DRIVER shunt/aneurysm coil 2009 Current Visit: Yes Status: Acute Requested medical records from [place] to [place] for MRI study Unable to get MRI due to lack of information to clear for the study -- Obesity BMI 36.0 Current Visit: Yes Status: Acute patient needs outpatient weight reduction Dietary modification, exercise as tolerated and stable -- DVT prophylaxis Current Visit: Yes Status: Acute SCDs bilateral lower extremities while in bed -- Advance care planning; Current Visit: Yes Status: Acute Disease education conducted, care plan discussed, diagnosis discussed, prognosis discussed, patient is full code, patient family knowledges understanding and agreement with care plan, +30 minutes. Follow neuro evaluation and recommendations I discussed in detail with patient's daughter over the phone while visiting I explained in detail patient's condition treatment plan tests and reports, consultants recommendations, plan of care Delay of the MRI pending reports from [facility]. I answered all her questions And encouraged her to call back if she has any new concerns Brief history and daily hospital course Patient was admitted with acute CVA not a candidate for TPA, neuro work-up is in progress however patient has history of Cerebral aneurysm status post surgery with coil, LOG TRUCK DRIVER shunt. Radiologist wanted to know if the material used in the surgery is MRI compatible Records requested from [place] pending clearance for MRI 04/12/2021; patient more alert and awake today, dysarthria, confused at times Restraint for safety, follow neurology evaluation recommendations, follow neuro work-up Resumed service; 04/16/2021; patient is more alert and awake. Responding appropriately No new complaints, vital signs reviewed Continue PT OT, DC in 1 to 2 days if stable 04/17/2021; patient feels better, continue current management Restraint during nights due to sundowning and confusion Recommend subacute rehab, pending placemen daughter requests subacute rehab at [place] for discharge Case management processing, pending insurance authorization 04/18/2021; awaiting subacute rehab placement at [place] Awaiting insurance authorization 04/19/2021; pending placement Medically stable for discharge 04/20/2021 pending placement; History Interval history: I have seen and examined the patient at the bedside Patient's chart and medications reviewed Patient feels better alert and awake responding appropriately Confused at times getting out of bed requiring restraints Acute CVA with residual weakness Awaiting placement Vital signs noted Hospitalist Physical - Constitutional Vitals: Temp Pulse Resp BP Pulse Ox 97.4 F L 68 20 142/94 98 04/20/21 07:20 04/20/21 07:20 04/20/21 07:20 04/20/21 07:20 04/20/21 07:20 General appearance: Present: no acute distress, well-nourished, other - EENT Eyes: Present: PERRL, EOM intact - Neck Neck: Present: supple, normal ROM - Respiratory Respiratory effort: normal Respiratory: bilateral: diminished, negative: rales, rhonchi, wheezing - Cardiovascular Rhythm: regular Heart Sounds: Present: S1 & S2 - Extremities Extremities: no ischemia, pulses intact, pulses symmetrical - Abdominal General gastrointestinal: soft, non-tender, non-distended, normal bowel sounds - Integumentary Integumentary: Present: clear, warm - Psychiatric Psychiatric: appropriate mood/affect, cooperative - Neurologic Neurologic: CNII-XII intact, focal deficits HEART Score - HEART Score Troponin: Troponin T < 0.010 ng/mL (0.00-0.029) 04/10/21 15:46 Results - Labs CBC & Chem 7: 04/10/21 15:46 04/17/21 05:12 Labs: Laboratory Last Values WBC 7.3 K/mm3 (4.5-11.0) 04/10/21 15:46 RBC 4.84 M/mm3 (3.65-5.03) 04/10/21 15:46 Hgb 14.6 gm/dl (11.8-15.2) 04/10/21 15:46 Hct 42.9 % (35.5-45.6) 04/10/21 15:46 MCV 89 fl (84-94) 04/10/21 15:46 MCH 30 pg (28-32) 04/10/21 15:46 MCHC 34 % (32-34) 04/10/21 15:46 RDW 14.6 % (13.2-15.2) 04/10/21 15:46 Plt Count 235 K/mm3 (140-440) 04/10/21 15:46 Lymph % (Auto) 22.3 % (13.4-35.0) 04/10/21 15:46 [place] % (Auto) 12.8 % (0.0-7.3) H 04/10/21 15:46 Eos % (Auto) 0.5 % (0.0-4.3) 04/10/21 15:46 Baso % (Auto) 0.5 % (0.0-1.8) 04/10/21 15:46 Lymph # (Auto) 1.6 K/mm3 (1.2-5.4) 04/10/21 15:46 [place] # (Auto) 0.9 K/mm3 (0.0-0.8) H 04/10/21 15:46 Eos # (Auto) 0.0 K/mm3 (0.0-0.4) 04/10/21 15:46 Baso # (Auto) 0.0 K/mm3 (0.0-0.1) 04/10/21 15:46 Seg Neutrophils % 63.9 % (40.0-70.0) 04/10/21 15:46 Seg Neutrophils # 4.7 K/mm3 (1.8-7.7) 04/10/21 15:46 Sodium 139 mmol/L (137-145) 04/17/21 05:12 Potassium 3.7 mmol/L (3.6-5.0) 04/17/21 05:12 Chloride 109.5 mmol/L (98-107) H 04/17/21 05:12 Carbon Dioxide 18 mmol/L (22-30) L 04/17/21 05:12 Anion Gap 15 mmol/L 04/17/21 05:12 BUN 18 mg/dL (9-20) 04/17/21 05:12 Creatinine 0.9 mg/dL (0.8-1.3) 04/17/21 05:12 Estimated GFR > 60 ml/min 04/17/21 05:12 BUN/Creatinine Ratio 20 % 04/17/21 05:12 Glucose 94 mg/dL (75-100) 04/17/21 05:12 Calcium 8.5 mg/dL (8.4-10.2) 04/17/21 05:12 Phosphorus 2.90 mg/dL (2.5-4.5) 04/17/21 05:12 Magnesium 1.80 mg/dL (1.7-2.3) 04/17/21 05:12 Total Bilirubin 0.50 mg/dL (0.1-1.2) 04/10/21 15:46 AST 16 units/L (5-40) 04/10/21 15:46 ALT 16 units/L (7-56) 04/10/21 15:46 Alkaline Phosphatase 110 units/L (35-129) 04/10/21 15:46 Troponin T < 0.010 ng/mL (0.00-0.029) 04/10/21 15:46 Total Protein 7.9 g/dL (6.3-8.2) 04/10/21 15:46 Albumin 4.1 g/dL (3.9-5) 04/10/21 15:46 Albumin/Globulin Ratio 1.1 % 04/10/21 15:46 Triglycerides 75 mg/dL (2-149) 04/11/21 04:19 Cholesterol 132 mg/dL (50-199) 04/11/21 04:19 LDL Cholesterol Direct 91 mg/dL (50-130) 04/11/21 04:19 HDL Cholesterol 40 mg/dL (40-59) 04/11/21 04:19 Cholesterol/HDL Ratio 3.30 % 04/11/21 04:19 Coronavirus (PCR) Negative (Negative) 04/15/21 Unknown Osborne/IV: Voiding Method Condom Catheter Active Medications - Current Medications Current Medications: Generic Name Dose Route Start Last Admin Trade Name Freq PRN Reason Stop Dose Admin Acetaminophen 650 mg 04/10/21 17:31 04/18/21 21:26 Acetaminophen 325 Mg Tab PO 650 mg Q4H PRN Administration Pain, Mild (1-3) Albuterol 2.5 mg 04/10/21 17:31 Albuterol 2.5 Mg/3 Ml Nebu IH Q3HRT PRN Shortness Of Breath Aspirin 325 mg 04/11/21 10:00 04/19/21 09:08 Aspirin 325 Mg Tab PO 325 mg QDAY BRAXTON Administration Atorvastatin Calcium 40 mg 04/10/21 22:00 04/19/21 21:15 Atorvastatin 40 Mg Tab PO 40 mg QHS BRAXTON Administration Bisacodyl 10 mg 04/10/21 17:31 Bisacodyl 10 Mg Rect Supp AR QDAY PRN Constipation Dextrose/Sodium Chloride 1,000 mls @ 100 mls/hr 04/12/21 12:00 04/14/21 15:54 D5ns IV 100 mls/hr DIRECT BRAXTON Administration Levetiracetam 1,000 mg 04/14/21 22:00 04/19/21 21:15 Levetiracetam 500 Mg Tab PO 1,000 mg BID BRAXTON Administration Magnesium Hydroxide 30 ml 04/10/21 17:31 Magnesium Hydroxide (Mom) Oral Liqd Udc PO Q4H PRN Constipation Metoclopramide HCl 10 mg 04/10/21 17:31 Metoclopramide 10 Mg Tab PO Q6H PRN Nausea And Vomiting Ondansetron HCl 4 mg 04/10/21 17:31 Ondansetron 4 Mg/2 Ml Inj IV Q8H PRN Nausea And Vomiting Promethazine HCl 25 mg 04/10/21 17:31 04/18/21 21:27 Promethazine 25 Mg Rect Supp AR 25 mg Q6H PRN Administration Nausea And Vomiting Sodium Chloride 10 ml 04/10/21 17:31 04/18/21 21:27 Sodium Chloride 0.9% 10 Ml Flush Syringe IV 10 ml PRN PRN Administration LINE FLUSH Nutrition/Malnutrition Assess - Dietary Evaluation Nutrition/Malnutrition Findings: Nutrition Notes Start: 04/11/21 13:20 Freq: Status: Active Protocol: Document 04/18/21 07:59 MK (Rec: 04/18/21 08:00 MK [id number]) Nutrition Notes Need for Assessment generated from: LOS Initial or Follow up Brief Note Subjective/Other Information Screen for LOS. Pt eating 100% of meals and ONS. Nutrition Intervention Revisit per MD consult or patient Sign Off request:
[2021-04-20] MEDS: levETIRAcetam 500 MG TAB PO SCH ×2 (10:56→21:38)
[2021-04-20] MEDS: ASPIRIN 325 MG TAB PO SCH (10:56)
--- NOTE | 2021-04-21 09:07 | Progress Note ---
Assessment and Plan Assessment and plan: --Acute CVA (cerebral vascular accident) Current Visit: Yes Status: Acute Not a candidate for TPA , Continue aspirin and statin Neuro work-up reviewed as above PT OT evaluated and recommended subacute rehab placement Family requested [facility] processing Pending insurance authorization Imaging studies; First CT head without contrast; branch acute/subacute MCA infarct on the right without hemorrhagic transformation 2 ventricular catheter seen no signs of hydrocephalus Follow-up CT head without contrast; subacute infarct MCA distribution in the right Nonspecific white matter changes in the periventricular and central white matter LATIN AMERICAN STUDIES DIRECTOR shunt catheters unchanged Unable to get MRI due to LATIN AMERICAN STUDIES DIRECTOR shunt and aneurysm coil --Metabolic encephalopathy/sundowning; Current Visit: Yes Status: Acute Patient is more alert and awake responding appropriately However has some confusion and agitation during nights requiring Restraints --Hypertension Current Visit: Yes Status: Acute Well-controlled, continue current antihypertensives --History of brain surgery/LATIN AMER[employer] STUDIES DIRECTOR shunt/aneurysm coil 2009 Current Visit: Yes Status: Acute Requested medical records from [place] to [place] for MRI study Unable to get MRI due to lack of information to clear for the study -- Obesity BMI 36.0 Current Visit: Yes Status: Acute patient needs outpatient weight reduction Dietary modification, exercise as tolerated and stable -- DVT prophylaxis Current Visit: Yes Status: Acute SCDs bilateral lower extremities while in bed -- Advance care planning; Current Visit: Yes Status: Acute Disease education conducted, care plan discussed, diagnosis discussed, prognosis discussed, patient is full code, patient family knowledges understanding and agreement with care plan, +30 minutes. Follow neuro evaluation and recommendations I discussed in detail with patient's daughter over the phone while visiting I explained in detail patient's condition treatment plan tests and reports, consultants recommendations, plan of care Delay of the MRI pending reports from [facility]. I answered all her questions And encouraged her to call back if she has any new concerns Brief history and daily hospital course Patient was admitted with acute CVA not a candidate for TPA, neuro work-up is in progress however patient has history of Cerebral aneurysm status post surgery with coil, LAT[employer]UD[employer] DIRECTOR shunt. Radiologist wanted to know if the material used in the surgery is MRI compatible Records requested from [place] pending clearance for MRI, unable to do the MRI, patient is receiving PT OT rehabilitation, recommended subacute rehab Case management processing the placement, waiting for insurance authorization 04/12/2021; patient more alert and awake today, dysarthria, confused at times Restraint for safety, follow neurology evaluation recommendations, follow neuro work-up Resumed service; 04/16/2021; patient is more alert and awake. Responding appropriately No new complaints, vital signs reviewed Continue PT OT, DC in 1 to 2 days if stable 04/17/2021; patient feels better, continue current management Restraint during nights due to sundowning and confusion Recommend subacute rehab, pending placemen daughter requests subacute rehab at [place] for discharge Case management processing, pending insurance authorization 04/18/2021; awaiting subacute rehab placement at [place] Awaiting insurance authorization 04/19/2021; pending placement Medically stable for discharge 04/20/2021 pending placement; 04/21/2021; pending ins. authorization for subacute rehab placement History Interval history: I have seen and examined the patient at the bedside this morning Patient's chart and medications reviewed No new events reported by the nursing staff Patient has intermittent brief confusion and agitation requiring restraints Vital signs noted Hospitalist Physical - Constitutional Vitals: Temp Pulse Resp BP Pulse Ox 98.3 F 79 20 136/98 90 04/21/21 07:40 04/21/21 07:40 04/21/21 07:40 04/21/21 07:40 04/21/21 07:40 General appearance: Present: no acute distress, well-nourished, other - EENT Eyes: Present: PERRL, EOM intact - Neck Neck: Present: supple, normal ROM - Respiratory Respiratory effort: normal Respiratory: bilateral: diminished, negative: rales, rhonchi, wheezing - Cardiovascular Rhythm: regular Heart Sounds: Present: S1 & S2 - Extremities Extremities: no ischemia, No edema - Abdominal General gastrointestinal: soft, non-tender, non-distended - Integumentary Integumentary: Present: clear, warm - Psychiatric Psychiatric: appropriate mood/affect, cooperative - Neurologic Neurologic: moves all extremities HEART Score - HEART Score Troponin: Troponin T < 0.010 ng/mL (0.00-0.029) 04/10/21 15:46 Results - Labs CBC & Chem 7: 04/10/21 15:46 04/17/21 05:12 Labs: Laboratory Last Values WBC 7.3 K/mm3 (4.5-11.0) 04/10/21 15:46 RBC 4.84 M/mm3 (3.65-5.03) 04/10/21 15:46 Hgb 14.6 gm/dl (11.8-15.2) 04/10/21 15:46 Hct 42.9 % (35.5-45.6) 04/10/21 15:46 MCV 89 fl (84-94) 04/10/21 15:46 MCH 30 pg (28-32) 04/10/21 15:46 MCHC 34 % (32-34) 04/10/21 15:46 RDW 14.6 % (13.2-15.2) 04/10/21 15:46 Plt Count 235 K/mm3 (140-440) 04/10/21 15:46 Lymph % (Auto) 22.3 % (13.4-35.0) 04/10/21 15:46 [place] % (Auto) 12.8 % (0.0-7.3) H 04/10/21 15:46 Eos % (Auto) 0.5 % (0.0-4.3) 04/10/21 15:46 Baso % (Auto) 0.5 % (0.0-1.8) 04/10/21 15:46 Lymph # (Auto) 1.6 K/mm3 (1.2-5.4) 04/10/21 15:46 [place] # (Auto) 0.9 K/mm3 (0.0-0.8) H 04/10/21 15:46 Eos # (Auto) 0.0 K/mm3 (0.0-0.4) 04/10/21 15:46 Baso # (Auto) 0.0 K/mm3 (0.0-0.1) 04/10/21 15:46 Seg Neutrophils % 63.9 % (40.0-70.0) 04/10/21 15:46 Seg Neutrophils # 4.7 K/mm3 (1.8-7.7) 04/10/21 15:46 Sodium 139 mmol/L (137-145) 04/17/21 05:12 Potassium 3.7 mmol/L (3.6-5.0) 04/17/21 05:12 Chloride 109.5 mmol/L (98-107) H 04/17/21 05:12 Carbon Dioxide 18 mmol/L (22-30) L 04/17/21 05:12 Anion Gap 15 mmol/L 04/17/21 05:12 BUN 18 mg/dL (9-20) 04/17/21 05:12 Creatinine 0.9 mg/dL (0.8-1.3) 04/17/21 05:12 Estimated GFR > 60 ml/min 04/17/21 05:12 BUN/Creatinine Ratio 20 % 04/17/21 05:12 Glucose 94 mg/dL (75-100) 04/17/21 05:12 Calcium 8.5 mg/dL (8.4-10.2) 04/17/21 05:12 Phosphorus 2.90 mg/dL (2.5-4.5) 04/17/21 05:12 Magnesium 1.80 mg/dL (1.7-2.3) 04/17/21 05:12 Total Bilirubin 0.50 mg/dL (0.1-1.2) 04/10/21 15:46 AST 16 units/L (5-40) 04/10/21 15:46 ALT 16 units/L (7-56) 04/10/21 15:46 Alkaline Phosphatase 110 units/L (35-129) 04/10/21 15:46 Troponin T < 0.010 ng/mL (0.00-0.029) 04/10/21 15:46 Total Protein 7.9 g/dL (6.3-8.2) 04/10/21 15:46 Albumin 4.1 g/dL (3.9-5) 04/10/21 15:46 Albumin/Globulin Ratio 1.1 % 04/10/21 15:46 Triglycerides 75 mg/dL (2-149) 04/11/21 04:19 Cholesterol 132 mg/dL (50-199) 04/11/21 04:19 LDL Cholesterol Direct 91 mg/dL (50-130) 04/11/21 04:19 HDL Cholesterol 40 mg/dL (40-59) 04/11/21 04:19 Cholesterol/HDL Ratio 3.30 % 04/11/21 04:19 Coronavirus (PCR) Negative (Negative) 04/15/21 Unknown Osborne/IV: Voiding Method External Female Catheter Active Medications - Current Medications Current Medications: Generic Name Dose Route Start Last Admin Trade Name Freq PRN Reason Stop Dose Admin Acetaminophen 650 mg 04/10/21 17:31 04/18/21 21:26 Acetaminophen 325 Mg Tab PO 650 mg Q4H PRN Administration Pain, Mild (1-3) Albuterol 2.5 mg 04/10/21 17:31 Albuterol 2.5 Mg/3 Ml Nebu IH Q3HRT PRN Shortness Of Breath Aspirin 325 mg 04/11/21 10:00 04/20/21 10:56 Aspirin 325 Mg Tab PO 325 mg QDAY BRAXTON Administration Atorvastatin Calcium 40 mg 04/10/21 22:00 04/20/21 21:38 Atorvastatin 40 Mg Tab PO 40 mg QHS BRAXTON Administration Bisacodyl 10 mg 04/10/21 17:31 Bisacodyl 10 Mg Rect Supp MN QDAY PRN Constipation Dextrose/Sodium Chloride 1,000 mls @ 100 mls/hr 04/12/21 12:00 04/14/21 15:54 D5ns IV 100 mls/hr DIRECT BRAXTON Administration Levetiracetam 1,000 mg 04/14/21 22:00 04/20/21 21:38 Levetiracetam 500 Mg Tab PO 1,000 mg BID BRAXTON Administration Magnesium Hydroxide 30 ml 04/10/21 17:31 Magnesium Hydroxide (Mom) Oral Liqd Udc PO Q4H PRN Constipation Metoclopramide HCl 10 mg 04/10/21 17:31 Metoclopramide 10 Mg Tab PO Q6H PRN Nausea And Vomiting Ondansetron HCl 4 mg 04/10/21 17:31 Ondansetron 4 Mg/2 Ml Inj IV Q8H PRN Nausea And Vomiting Promethazine HCl 25 mg 04/10/21 17:31 04/18/21 21:27 Promethazine 25 Mg Rect Supp MN 25 mg Q6H PRN Administration Nausea And Vomiting Sodium Chloride 10 ml 04/10/21 17:31 04/18/21 21:27 Sodium Chloride 0.9% 10 Ml Flush Syringe IV 10 ml PRN PRN Administration LINE FLUSH Nutrition/Malnutrition Assess - Dietary Evaluation Nutrition/Malnutrition Findings: Nutrition Notes Start: 04/11/21 13:20 Freq: Status: Active Protocol: Document 04/18/21 07:59 MK (Rec: 04/18/21 08:00 MANINDER [id number]) Nutrition Notes Need for Assessment generated from: LOS Initial or Follow up Brief Note Subjective/Other Information Screen for LOS. Pt eating 100% of meals and ONS. Nutrition Intervention Revisit per MD consult or patient Sign Off request:
[2021-04-21] MEDS: ASPIRIN 325 MG TAB PO SCH (10:38)
[2021-04-21] MEDS: levETIRAcetam 500 MG TAB PO SCH ×2 (10:38→21:15)
--- NOTE | 2021-04-21 15:03 | Event Note ---
Date: 04/21/21 I called patient's daughter Ms. Katelynn Blanchard at [phone] unable to reach her voicemail was full unable to leave a message. I called again on a different #[phone] and spoke extensively patient's condition, tests and reports, consultants recommendations, physical therapy occupational therapy recommendations for subacute rehab placement, inability to do the MRI due to previous brain surgery not compatible for MRI and discharge planning to [place] subacute rehab pending insurance authorization, patient had numerous questions, I answered all of them. She was appreciative of my call, and encouraged her to call back if she has more questions or concerns and speak with case management tomorrow
[2021-04-22] MEDS ORDERED: hydrALAZINE 20 MG/1 ML INJ IV ONE (04:50)
--- NOTE | 2021-04-22 08:21 | Progress Note ---
Assessment and Plan Assessment and plan: --Acute CVA (cerebral vascular accident) Current Visit: Yes Status: Acute Not a candidate for TPA , Continue aspirin and statin Neuro work-up reviewed as above PT OT evaluated and recommended subacute rehab placement Family requested [facility] processing Pending insurance authorization Imaging studies; First CT head without contrast; branch acute/subacute MCA infarct on the right without hemorrhagic transformation 2 ventricular catheter seen no signs of hydrocephalus Follow-up CT head without contrast; subacute infarct MCA distribution in the right Nonspecific white matter changes in the periventricular and central white matter HELICOPTER TECHNICIAN shunt catheters unchanged Unable to get MRI due to HELICOPTER TECHNICIAN shunt and aneurysm coil --Metabolic encephalopathy/sundowning; Current Visit: Yes Status: Acute Patient is more alert and awake responding appropriately However has some confusion and agitation during nights requiring Restraints --Hypertension Current Visit: Yes Status: Acute Well-controlled, continue current antihypertensives --History of brain surgery/HELICOPTER TECHNICIAN shunt/aneurysm coil 2009 Current Visit: Yes Status: Acute Requested medical records from [place] to [place] for MRI study Unable to get MRI due to lack of information to clear for the study -- Obesity BMI 36.0 Current Visit: Yes Status: Acute patient needs outpatient weight reduction Dietary modification, exercise as tolerated and stable -- DVT prophylaxis Current Visit: Yes Status: Acute SCDs bilateral lower extremities while in bed -- Advance care planning; Current Visit: Yes Status: Acute Disease education conducted, care plan discussed, diagnosis discussed, prognosis discussed, patient is full code, patient family knowledges understanding and agreement with care plan, +30 minutes. Follow neuro evaluation and recommendations I discussed in detail with patient's daughter over the phone while visiting I explained in detail patient's condition treatment plan tests and reports, consultants recommendations, plan of care Delay of the MRI pending reports from [facility]. I answered all her questions And encouraged her to call back if she has any new concerns Brief history and daily hospital course Patient was admitted with acute CVA not a candidate for TPA, neuro work-up is in progress however patient has history of Cerebral aneurysm status post surgery with coil, HELICOPTER TECHNICIAN shunt. Radiologist wanted to know if the material used in the surgery is MRI compatible Records requested from [place] pending clearance for MRI, unable to do the MRI, patient is receiving PT OT rehabilitation, recommended subacute rehab Case management processing the placement, waiting for insurance authorization 04/12/2021; patient more alert and awake today, dysarthria, confused at times Restraint for safety, follow neurology evaluation recommendations, follow neuro work-up Resumed service; 04/16/2021; patient is more alert and awake. Responding appropriately No new complaints, vital signs reviewed Continue PT OT, DC in 1 to 2 days if stable 04/17/2021; patient feels better, continue current management Restraint during nights due to sundowning and confusion Recommend subacute rehab, pending placemen daughter requests subacute rehab at [place] for discharge Case management processing, pending insurance authorization 04/18/2021; awaiting subacute rehab placement at [place] Awaiting insurance authorization 04/19/2021; pending placement Medically stable for discharge 04/20/2021 pending placement; 04/21/2021; pending ins. authorization for subacute rehab placement 04/22/2029; awaiting placement subacute rehab History Interval history: I have seen and examined the patient at the bedside this morning Patient's chart and medications reviewed No new events reported by the nursing Patient is alert awake oriented responding appropriately Confused at times requiring restraints Vital signs noted Hospitalist Physical - Constitutional Vitals: Temp Pulse Resp BP Pulse Ox 98.2 F 70 18 166/104 96 04/22/21 03:20 04/22/21 03:20 04/22/21 03:20 04/22/21 03:20 04/22/21 03:20 General appearance: Present: no acute distress, well-nourished, other (Responds appropriately) - EENT Eyes: Present: PERRL, EOM intact - Neck Neck: Present: supple, normal ROM - Respiratory Respiratory effort: normal Respiratory: bilateral: diminished, negative: rales, rhonchi, wheezing - Cardiovascular Rhythm: regular Heart Sounds: Present: S1 & S2 - Extremities Extremities: no ischemia, No edema - Abdominal General gastrointestinal: soft, non-tender, non-distended, normal bowel sounds - Integumentary Integumentary: Present: clear, warm - Psychiatric Psychiatric: appropriate mood/affect, cooperative - Neurologic Neurologic: moves all extremities, other (Acute CVA with residual weakness) HEART Score - HEART Score Troponin: Troponin T < 0.010 ng/mL (0.00-0.029) 04/10/21 15:46 Results - Labs CBC & Chem 7: 04/10/21 15:46 06/30/21 05:12 Labs: Laboratory Last Values WBC 7.3 K/mm3 (4.5-11.0) 04/10/21 15:46 RBC 4.84 M/mm3 (3.65-5.03) 04/10/21 15:46 Hgb 14.6 gm/dl (11.8-15.2) 04/10/21 15:46 Hct 42.9 % (35.5-45.6) 04/10/21 15:46 MCV 89 fl (84-94) 04/10/21 15:46 MCH 30 pg (28-32) 04/10/21 15:46 MCHC 34 % (32-34) 04/10/21 15:46 RDW 14.6 % (13.2-15.2) 04/10/21 15:46 Plt Count 235 K/mm3 (140-440) 04/10/21 15:46 Lymph % (Auto) 22.3 % (13.4-35.0) 04/10/21 15:46 [place] % (Auto) 12.8 % (0.0-7.3) H 04/10/21 15:46 Eos % (Auto) 0.5 % (0.0-4.3) 04/10/21 15:46 Baso % (Auto) 0.5 % (0.0-1.8) 04/10/21 15:46 Lymph # (Auto) 1.6 K/mm3 (1.2-5.4) 04/10/21 15:46 [place] # (Auto) 0.9 K/mm3 (0.0-0.8) H 04/10/21 15:46 Eos # (Auto) 0.0 K/mm3 (0.0-0.4) 04/10/21 15:46 Baso # (Auto) 0.0 K/mm3 (0.0-0.1) 04/10/21 15:46 Seg Neutrophils % 63.9 % (40.0-70.0) 04/10/21 15:46 Seg Neutrophils # 4.7 K/mm3 (1.8-7.7) 04/10/21 15:46 Sodium 139 mmol/L (137-145) 04/17/21 05:12 Potassium 3.7 mmol/L (3.6-5.0) 04/17/21 05:12 Chloride 109.5 mmol/L (98-107) H 04/17/21 05:12 Carbon Dioxide 18 mmol/L (22-30) L 04/17/21 05:12 Anion Gap 15 mmol/L 04/17/21 05:12 BUN 18 mg/dL (9-20) 04/17/21 05:12 Creatinine 0.9 mg/dL (0.8-1.3) 04/17/21 05:12 Estimated GFR > 60 ml/min 04/17/21 05:12 BUN/Creatinine Ratio 20 % 04/17/21 05:12 Glucose 94 mg/dL (75-100) 04/17/21 05:12 Calcium 8.5 mg/dL (8.4-10.2) 04/17/21 05:12 Phosphorus 2.90 mg/dL (2.5-4.5) 04/17/21 05:12 Magnesium 1.80 mg/dL (1.7-2.3) 04/17/21 05:12 Total Bilirubin 0.50 mg/dL (0.1-1.2) 04/10/21 15:46 AST 16 units/L (5-40) 04/10/21 15:46 ALT 16 units/L (7-56) 04/10/21 15:46 Alkaline Phosphatase 110 units/L (35-129) 04/10/21 15:46 Troponin T < 0.010 ng/mL (0.00-0.029) 04/10/21 15:46 Total Protein 7.9 g/dL (6.3-8.2) 04/10/21 15:46 Albumin 4.1 g/dL (3.9-5) 04/10/21 15:46 Albumin/Globulin Ratio 1.1 % 04/10/21 15:46 Triglycerides 75 mg/dL (2-149) 04/11/21 04:19 Cholesterol 132 mg/dL (50-199) 04/11/21 04:19 LDL Cholesterol Direct 91 mg/dL (50-130) 04/11/21 04:19 HDL Cholesterol 40 mg/dL (40-59) 04/11/21 04:19 Cholesterol/HDL Ratio 3.30 % 04/11/21 04:19 Coronavirus (PCR) Negative (Negative) 04/15/21 Unknown Osborne/IV: Voiding Method Condom Catheter Active Medications - Current Medications Current Medications: Generic Name Dose Route Start Last Admin Trade Name Freq PRN Reason Stop Dose Admin Acetaminophen 650 mg 04/10/21 17:31 04/18/21 21:26 Acetaminophen 325 Mg Tab PO 650 mg Q4H PRN Administration Pain, Mild (1-3) Albuterol 2.5 mg 04/10/21 17:31 Albuterol 2.5 Mg/3 Ml Nebu IH Q3HRT PRN Shortness Of Breath Aspirin 325 mg 04/11/21 10:00 04/21/21 10:38 Aspirin 325 Mg Tab PO 325 mg QDAY BRAXTON Administration Atorvastatin Calcium 40 mg 04/10/21 22:00 04/21/21 21:15 Atorvastatin 40 Mg Tab PO 40 mg QHS BRAXTON Administration Bisacodyl 10 mg 04/10/21 17:31 Bisacodyl 10 Mg Rect Supp [place] QDAY PRN Constipation Hydralazine HCl 25 mg 04/22/21 14:00 Hydralazine 25 Mg Tab PO Q8HR BRAXTON Dextrose/Sodium Chloride 1,000 mls @ 100 mls/hr 04/12/21 12:00 04/14/21 15:54 D5ns IV 100 mls/hr DIRECT BRAXTON Administration Levetiracetam 1,000 mg 04/14/21 22:00 04/21/21 21:15 Levetiracetam 500 Mg Tab PO 1,000 mg BID BRAXTON Administration Magnesium Hydroxide 30 ml 04/10/21 17:31 Magnesium Hydroxide (Mom) Oral Liqd Udc PO Q4H PRN Constipation Metoclopramide HCl 10 mg 04/10/21 17:31 Metoclopramide 10 Mg Tab PO Q6H PRN Nausea And Vomiting Ondansetron HCl 4 mg 04/10/21 17:31 Ondansetron 4 Mg/2 Ml Inj IV Q8H PRN Nausea And Vomiting Promethazine HCl 25 mg 04/10/21 17:31 04/18/21 21:27 Promethazine 25 Mg Rect Supp [place] 25 mg Q6H PRN Administration Nausea And Vomiting Sodium Chloride 10 ml 04/10/21 17:31 04/18/21 21:27 Sodium Chloride 0.9% 10 Ml Flush Syringe IV 10 ml PRN PRN Administration LINE FLUSH Nutrition/Malnutrition Assess - Dietary Evaluation Nutrition/Malnutrition Findings: Nutrition Notes Start: 04/11/21 13:20 Freq: Status: Active Protocol: Document 04/18/21 07:59 MK (Rec: 04/18/21 08:00 MK [id number]) Nutrition Notes Need for Assessment generated from: LOS Initial or Follow up Brief Note Subjective/Other Information Screen for LOS. Pt eating 100% of meals and ONS. Nutrition Intervention Revisit per MD consult or patient Sign Off request:
[2021-04-22] MEDS: levETIRAcetam 500 MG TAB PO SCH (10:32)
[2021-04-22] MEDS: ASPIRIN 325 MG TAB PO SCH (10:32)
[2021-04-22] MEDS: hydrALAZINE 25 MG TAB PO SCH ×2 (13:51→23:03)
[2021-04-22] MEDS: levETIRAcetam 500 MG/5 ML ORAL LIQD PO SCH (23:04)
[2021-04-23] MEDS: hydrALAZINE 25 MG TAB PO SCH ×3 (05:39→22:42)
[2021-04-23] MEDS: levETIRAcetam 500 MG/5 ML ORAL LIQD PO SCH ×2 (09:19→22:42)
[2021-04-23] MEDS: ASPIRIN 325 MG TAB PO SCH (09:19)
--- NOTE | 2021-04-23 16:38 | Progress Note ---
Assessment and Plan Assessment and plan: --Metabolic encephalopathy/sundowning; Current Visit: Yes Status: Acute Patient is more alert and awake responding appropriately However has some confusion and agitation during nights requiring Restraints --Hypertension Current Visit: Yes Status: Acute Well-controlled, continue current antihypertensives --Acute right CVA (cerebral vascular accident) Current Visit: Yes Status: Acute Not a candidate for TPA , Continue aspirin and statin PT OT recommended subacute rehab placement Family requested [facility] processing Pending insurance authorization Imaging studies; First CT head without contrast; acute/subacute MCA infarct on the right without hemorrhagic transformation 2 ventricular catheter seen no signs of hydrocephalus Follow-up CT head without contrast; subacute infarct MCA distribution in the right Nonspecific white matter changes in the periventricular and central white matter CORPORATE TRAVEL EXPERT shunt catheters unchanged Unable to get MRI due to CORPORATE TRAVEL EXPERT shunt and aneurysm coil --History of brain surgery/CORPORATE TRAVEL EXPERT shunt/aneurysm coil 2009 Current Visit: Yes Status: Acute Requested medical records from [place] to [place] for MRI study Unable to get MRI due to lack of information to clear for the study -- Obesity BMI 36.0 Current Visit: Yes Status: Acute patient needs outpatient weight reduction Dietary modification, exercise as tolerated and stable -- DVT prophylaxis Current Visit: Yes Status: Acute SCDs bilateral lower extremities while in bed -- Advance care planning; Current Visit: Yes Status: Acute Disease education conducted, care plan discussed, diagnosis discussed, prognosis discussed, patient is full code, patient family knowledges understanding and agreement with care plan, +30 minutes. Follow neuro evaluation and recommendations I discussed in detail with patient's daughter over the phone while visiting I explained in detail patient's condition treatment plan tests and reports, consultants recommendations, plan of care Delay of the MRI pending reports from [facility]. I answered all her questions And encouraged her to call back if she has any new concerns Brief history and daily hospital course Patient was admitted with acute CVA not a candidate for TPA, neuro work-up is in progress however patient has history of Cerebral aneurysm status post surgery with coil, CORPORATE TRAVEL EXPERT shunt. Radiologist wanted to know if the material used in the surgery is MRI compatible Records requested from [facility] pending clearance for MRI, unable to do the MRI, patient is receiving PT OT rehabilitation, recommended subacute rehab Case management processing the placement, waiting for insurance authorization 04/12/2021; patient more alert and awake today, dysarthria, confused at times Restraint for safety, follow neurology evaluation recommendations, follow neuro work-up Resumed service; 04/16/2021; patient is more alert and awake. Responding appropriately No new complaints, vital signs reviewed Continue PT OT, DC in 1 to 2 days if stable 04/17/2021; patient feels better, continue current management Restraint during nights due to sundowning and confusion Recommend subacute rehab, pending placemen daughter requests subacute rehab at [place] for discharge Case management processing, pending insurance authorization 04/18/2021; awaiting subacute rehab placement at [place] Awaiting insurance authorization 04/19/2021; pending placement Medically stable for discharge 04/20/2021 pending placement; 04/21/2021; pending ins. authorization for subacute rehab placement 04/22/2021; awaiting placement subacute rehab 04/23/2021; awaiting insurance authorization for [place] subacute rehab placement DC planning per case management History Interval history: I have seen and examined the patient at the bedside this morning during morning rounds Vital signs noted, no new events reported by the nursing Patient is alert awake oriented Vital signs noted No new complaints Awaiting placement Hospitalist Physical - Constitutional Vitals: Temp Pulse Resp BP Pulse Ox 98.9 F 118 H 18 147/76 90 04/23/21 12:53 04/23/21 14:00 04/23/21 12:53 04/23/21 14:00 04/23/21 12:53 General appearance: Present: no acute distress, well-nourished, other (Responds appropriately) - EENT Eyes: Present: PERRL, EOM intact - Neck Neck: Present: supple, normal ROM - Respiratory Respiratory effort: normal Respiratory: bilateral: diminished, negative: rales, rhonchi, wheezing - Cardiovascular Rhythm: regular Heart Sounds: Present: S1 & S2 - Extremities Extremities: no ischemia, No edema - Abdominal General gastrointestinal: soft, non-tender, non-distended, normal bowel sounds - Integumentary Integumentary: Present: clear, warm - Psychiatric Psychiatric: appropriate mood/affect, cooperative - Neurologic Neurologic: CNII-XII intact, moves all extremities HEART Score - HEART Score Troponin: Troponin T < 0.010 ng/mL (0.00-0.029) 04/10/21 15:46 Results - Labs CBC & Chem 7: 04/10/21 15:46 04/17/21 05:12 Labs: Laboratory Last Values WBC 7.3 K/mm3 (4.5-11.0) 04/10/21 15:46 RBC 4.84 M/mm3 (3.65-5.03) 04/10/21 15:46 Hgb 14.6 gm/dl (11.8-15.2) 04/10/21 15:46 Hct 42.9 % (35.5-45.6) 04/10/21 15:46 MCV 89 fl (84-94) 04/10/21 15:46 MCH 30 pg (28-32) 04/10/21 15:46 MCHC 34 % (32-34) 04/10/21 15:46 RDW 14.6 % (13.2-15.2) 04/10/21 15:46 Plt Count 235 K/mm3 (140-440) 04/10/21 15:46 Lymph % (Auto) 22.3 % (13.4-35.0) 04/10/21 15:46 [place] % (Auto) 12.8 % (0.0-7.3) H 04/10/21 15:46 Eos % (Auto) 0.5 % (0.0-4.3) 04/10/21 15:46 Baso % (Auto) 0.5 % (0.0-1.8) 04/10/21 15:46 Lymph # (Auto) 1.6 K/mm3 (1.2-5.4) 04/10/21 15:46 [place] # (Auto) 0.9 K/mm3 (0.0-0.8) H 04/10/21 15:46 Eos # (Auto) 0.0 K/mm3 (0.0-0.4) 04/10/21 15:46 Baso # (Auto) 0.0 K/mm3 (0.0-0.1) 04/10/21 15:46 Seg Neutrophils % 63.9 % (40.0-70.0) 04/10/21 15:46 Seg Neutrophils # 4.7 K/mm3 (1.8-7.7) 04/10/21 15:46 Sodium 139 mmol/L (137-145) 04/17/21 05:12 Potassium 3.7 mmol/L (3.6-5.0) 04/17/21 05:12 Chloride 109.5 mmol/L (98-107) H 04/17/21 05:12 Carbon Dioxide 18 mmol/L (22-30) L 04/17/21 05:12 Anion Gap 15 mmol/L 04/17/21 05:12 BUN 18 mg/dL (9-20) 04/17/21 05:12 Creatinine 0.9 mg/dL (0.8-1.3) 04/17/21 05:12 Estimated GFR > 60 ml/min 04/17/21 05:12 BUN/Creatinine Ratio 20 % 04/17/21 05:12 Glucose 94 mg/dL (75-100) 04/17/21 05:12 Calcium 8.5 mg/dL (8.4-10.2) 04/17/21 05:12 Phosphorus 2.90 mg/dL (2.5-4.5) 04/17/21 05:12 Magnesium 1.80 mg/dL (1.7-2.3) 04/17/21 05:12 Total Bilirubin 0.50 mg/dL (0.1-1.2) 04/10/21 15:46 AST 16 units/L (5-40) 04/10/21 15:46 ALT 16 units/L (7-56) 04/10/21 15:46 Alkaline Phosphatase 110 units/L (35-129) 04/10/21 15:46 Troponin T < 0.010 ng/mL (0.00-0.029) 04/10/21 15:46 Total Protein 7.9 g/dL (6.3-8.2) 04/10/21 15:46 Albumin 4.1 g/dL (3.9-5) 04/10/21 15:46 Albumin/Globulin Ratio 1.1 % 04/10/21 15:46 Triglycerides 75 mg/dL (2-149) 04/11/21 04:19 Cholesterol 132 mg/dL (50-199) 04/11/21 04:19 LDL Cholesterol Direct 91 mg/dL (50-130) 04/11/21 04:19 HDL Cholesterol 40 mg/dL (40-59) 04/11/21 04:19 Cholesterol/HDL Ratio 3.30 % 04/11/21 04:19 Coronavirus (PCR) Negative (Negative) 04/15/21 Unknown [place]/IV: Voiding Method Toilet Active Medications - Current Medications Current Medications: Generic Name Dose Route Start Last Admin Trade Name Freq PRN Reason Stop Dose Admin Acetaminophen 650 mg 04/10/21 17:31 04/18/21 21:26 Acetaminophen 325 Mg Tab PO 650 mg Q4H PRN Administration Pain, Mild (1-3) Albuterol 2.5 mg 04/10/21 17:31 Albuterol 2.5 Mg/3 Ml Nebu IH Q3HRT PRN Shortness Of Breath Aspirin 325 mg 04/11/21 10:00 04/23/21 09:19 Aspirin 325 Mg Tab PO 325 mg QDAY BRAXTON Administration Atorvastatin Calcium 40 mg 04/10/21 22:00 04/22/21 23:03 Atorvastatin 40 Mg Tab PO 40 mg QHS BRAXTON Administration Bisacodyl 10 mg 04/10/21 17:31 Bisacodyl 10 Mg Rect Supp [place] QDAY PRN Constipation Hydralazine HCl 25 mg 04/22/21 14:00 04/23/21 14:00 Hydralazine 25 Mg Tab PO 25 mg Q8HR BRAXTON Administration Dextrose/Sodium Chloride 1,000 mls @ 100 mls/hr 04/12/21 12:00 04/14/21 15:54 D5ns IV 100 mls/hr DIRECT BRAXTON Administration Levetiracetam 1,000 mg 04/22/21 23:00 04/23/21 09:19 Levetiracetam 500 Mg/5 Ml Oral Liqd PO 1,000 mg BID BRAXTON Administration Magnesium Hydroxide 30 ml 04/10/21 17:31 Magnesium Hydroxide (Mom) Oral Liqd Udc PO Q4H PRN Constipation Metoclopramide HCl 10 mg 04/10/21 17:31 Metoclopramide 10 Mg Tab PO Q6H PRN Nausea And Vomiting Ondansetron HCl 4 mg 04/10/21 17:31 Ondansetron 4 Mg/2 Ml Inj IV Q8H PRN Nausea And Vomiting Promethazine HCl 25 mg 04/10/21 17:31 04/18/21 21:27 Promethazine 25 Mg Rect Supp TN 25 mg Q6H PRN Administration Nausea And Vomiting Sodium Chloride 10 ml 04/10/21 17:31 04/22/21 10:33 Sodium Chloride 0.9% 10 Ml Flush Syringe IV 10 ml PRN PRN Administration LINE FLUSH Nutrition/Malnutrition Assess - Dietary Evaluation Nutrition/Malnutrition Findings: Nutrition Notes Start: 04/11/21 13:20 Freq: Status: Active Protocol: Document 04/18/21 07:59 MK (Rec: 04/18/21 08:00 MK [id number]) Nutrition Notes Need for Assessment generated from: LOS Initial or Follow up Brief Note Subjective/Other Information Screen for LOS. Pt eating 100% of meals and ONS. Nutrition Intervention Revisit per MD consult or patient Sign Off request:
[2021-04-24] MEDS: hydrALAZINE 25 MG TAB PO SCH ×3 (06:03→21:05)
[2021-04-24] MEDS: ASPIRIN 325 MG TAB PO SCH (09:46)
[2021-04-24] MEDS: levETIRAcetam 500 MG/5 ML ORAL LIQD PO SCH ×2 (09:46→21:06)
--- NOTE | 2021-04-24 17:33 | Progress Note ---
Assessment and Plan Assessment and plan: --Acute right CVA (cerebral vascular accident) Current Visit: Yes Status: Acute Not a candidate for TPA , Continue aspirin and statin PT OT recommended subacute rehab placement Family requested [facility] processing Pending insurance authorization Imaging studies; First CT head without contrast; acute/subacute MCA infarct on the right without hemorrhagic transformation 2 ventricular catheter seen no signs of hydrocephalus Follow-up CT head without contrast; subacute infarct MCA distribution in the right Nonspecific white matter changes in the periventricular and central white matter CRYPTOLOGICAL TECHNICIAN shunt catheters unchanged Unable to get MRI due to CRYPTOLOGICAL TECHNICIAN shunt and aneurysm coil --History of brain surgery/CRYPTOLOGICAL TECHNICIAN shunt/aneurysm coil 2009 Current Visit: Yes Status: Acute Requested medical records from [place] to clear for MRI study Unable to get MRI due to lack of information to clear for the study --Metabolic encephalopathy/sundowning; Current Visit: Yes Status: Acute Patient is more alert and awake responding appropriately However has some confusion and agitation during nights requiring Restraints --Hypertension Current Visit: Yes Status: Acute Well-controlled, continue current antihypertensives -- Obesity BMI 30.0 Current Visit: Yes Status: Acute patient needs outpatient weight reduction Dietary modification, exercise as tolerated and stable -- DVT prophylaxis Current Visit: Yes Status: Acute SCDs bilateral lower extremities while in bed -- Advance care planning; Current Visit: Yes Status: Acute Disease education conducted, care plan discussed, diagnosis discussed, prognosis discussed, patient is full code, patient family knowledges understanding and agreement with care plan, +30 minutes. Follow neuro evaluation and recommendations I discussed in detail with patient's daughter over the phone while visiting I explained in detail patient's condition treatment plan tests and reports, consultants recommendations, plan of care Delay of the MRI pending reports from [facility]. I answered all her questions And encouraged her to call back if she has any new concerns Brief history and daily hospital course Patient was admitted with acute CVA not a candidate for TPA, neuro work-up is in progress however patient has history of Cerebral aneurysm status post surgery with coil, CRYPTOLOGICAL TECHNICIAN shunt. Radiologist wanted to know if the material used in the surgery is MRI compatible Records requested from [facility] pending clearance for MRI, unable to do the MRI, patient is receiving PT OT rehabilitation, recommended subacute rehab Case management processing the placement, waiting for insurance authorization 04/12/2021; patient more alert and awake today, dysarthria, confused at times Restraint for safety, follow neurology evaluation recommendations, follow neuro work-up Resumed service; 04/16/2021; patient is more alert and awake. Responding appropriately No new complaints, vital signs reviewed Continue PT OT, DC in 1 to 2 days if stable 04/17/2021; patient feels better, continue current management Restraint during nights due to sundowning and confusion Recommend subacute rehab, pending placemen daughter requests subacute rehab at [place] for discharge Case management processing, pending insurance authorization 04/18/2021; awaiting subacute rehab placement at [place] Awaiting insurance authorization 04/19/2021; pending placement Medically stable for discharge 04/20/2021 pending placement; 04/21/2021; pending ins. authorization for subacute rehab placement 04/22/2021; awaiting placement subacute rehab 04/23/2021; awaiting insurance authorization for [facility] subacute rehab placement DC planning per case management 04/24/2021; patient is medically stable for discharge, awaiting for tubal subacute rehab placement Pending insurance authorization History Interval history: I have seen and examined the patient at the bedside during my morning rounds Patient's chart and medications reviewed Patient is sleeping easily awakens No new complaints Awaiting placement Hospitalist Physical - Constitutional Vitals: Temp Pulse Resp BP Pulse Ox 98.2 F 95 H 18 147/109 91 04/24/21 08:25 04/24/21 08:25 04/24/21 08:25 04/24/21 08:25 04/24/21 08:25 General appearance: Present: no acute distress, well-nourished, other (Responds appropriately) - EENT Eyes: Present: PERRL, EOM intact - Neck Neck: Present: supple, normal ROM - Respiratory Respiratory effort: normal Respiratory: bilateral: diminished, negative: rales, rhonchi, wheezing - Cardiovascular Rhythm: regular Heart Sounds: Present: S1 & S2 - Extremities Extremities: no ischemia, No edema - Abdominal General gastrointestinal: soft, non-tender, non-distended, normal bowel sounds - Integumentary Integumentary: Present: clear, warm - Psychiatric Psychiatric: appropriate mood/affect, cooperative - Neurologic Neurologic: moves all extremities (Residual weakness due to stroke) HEART Score - HEART Score Troponin: Troponin T < 0.010 ng/mL (0.00-0.029) 04/10/21 15:46 Results - Labs CBC & Chem 7: 04/10/21 15:46 04/17/21 05:12 Labs: Laboratory Last Values WBC 7.3 K/mm3 (4.5-11.0) 04/10/21 15:46 RBC 4.84 M/mm3 (3.65-5.03) 04/10/21 15:46 Hgb 14.6 gm/dl (11.8-15.2) 04/10/21 15:46 Hct 42.9 % (35.5-45.6) 04/10/21 15:46 MCV 89 fl (84-94) 04/10/21 15:46 MCH 30 pg (28-32) 04/10/21 15:46 MCHC 34 % (32-34) 04/10/21 15:46 RDW 14.6 % (13.2-15.2) 04/10/21 15:46 Plt Count 235 K/mm3 (140-440) 04/10/21 15:46 Lymph % (Auto) 22.3 % (13.4-35.0) 04/10/21 15:46 [place] % (Auto) 12.8 % (0.0-7.3) H 04/10/21 15:46 Eos % (Auto) 0.5 % (0.0-4.3) 04/10/21 15:46 Baso % (Auto) 0.5 % (0.0-1.8) 04/10/21 15:46 Lymph # (Auto) 1.6 K/mm3 (1.2-5.4) 04/10/21 15:46 [place] # (Auto) 0.9 K/mm3 (0.0-0.8) H 04/10/21 15:46 Eos # (Auto) 0.0 K/mm3 (0.0-0.4) 04/10/21 15:46 Baso # (Auto) 0.0 K/mm3 (0.0-0.1) 04/10/21 15:46 Seg Neutrophils % 63.9 % (40.0-70.0) 04/10/21 15:46 Seg Neutrophils # 4.7 K/mm3 (1.8-7.7) 04/10/21 15:46 Sodium 139 mmol/L (137-145) 04/17/21 05:12 Potassium 3.7 mmol/L (3.6-5.0) 04/17/21 05:12 Chloride 109.5 mmol/L (98-107) H 04/17/21 05:12 Carbon Dioxide 18 mmol/L (22-30) L 04/17/21 05:12 Anion Gap 15 mmol/L 04/17/21 05:12 BUN 18 mg/dL (9-20) 04/17/21 05:12 Creatinine 0.9 mg/dL (0.8-1.3) 04/17/21 05:12 Estimated GFR > 60 ml/min 04/17/21 05:12 BUN/Creatinine Ratio 20 % 04/17/21 05:12 Glucose 94 mg/dL (75-100) 04/17/21 05:12 Calcium 8.5 mg/dL (8.4-10.2) 04/17/21 05:12 Phosphorus 2.90 mg/dL (2.5-4.5) 04/17/21 05:12 Magnesium 1.80 mg/dL (1.7-2.3) 04/17/21 05:12 Total Bilirubin 0.50 mg/dL (0.1-1.2) 04/10/21 15:46 AST 16 units/L (5-40) 04/10/21 15:46 ALT 16 units/L (7-56) 04/10/21 15:46 Alkaline Phosphatase 110 units/L (35-129) 04/10/21 15:46 Troponin T < 0.010 ng/mL (0.00-0.029) 04/10/21 15:46 Total Protein 7.9 g/dL (6.3-8.2) 04/10/21 15:46 Albumin 4.1 g/dL (3.9-5) 04/10/21 15:46 Albumin/Globulin Ratio 1.1 % 04/10/21 15:46 Triglycerides 75 mg/dL (2-149) 04/11/21 04:19 Cholesterol 132 mg/dL (50-199) 04/11/21 04:19 LDL Cholesterol Direct 91 mg/dL (50-130) 04/11/21 04:19 HDL Cholesterol 40 mg/dL (40-59) 04/11/21 04:19 Cholesterol/HDL Ratio 3.30 % 04/11/21 04:19 Coronavirus (PCR) Negative (Negative) 04/15/21 Unknown [place]/IV: Voiding Method Condom Catheter Active Medications - Current Medications Current Medications: Generic Name Dose Route Start Last Admin Trade Name Freq PRN Reason Stop Dose Admin Acetaminophen 650 mg 04/10/21 17:31 04/18/21 21:26 Acetaminophen 325 Mg Tab PO 650 mg Q4H PRN Administration Pain, Mild (1-3) Albuterol 2.5 mg 04/10/21 17:31 Albuterol 2.5 Mg/3 Ml Nebu IH Q3HRT PRN Shortness Of Breath Aspirin 325 mg 04/11/21 10:00 04/24/21 09:46 Aspirin 325 Mg Tab PO 325 mg QDAY BRAXTON Administration Atorvastatin Calcium 40 mg 04/10/21 22:00 04/23/21 22:42 Atorvastatin 40 Mg Tab PO 40 mg QHS BRAXTON Administration Bisacodyl 10 mg 04/10/21 17:31 Bisacodyl 10 Mg Rect Supp [place] QDAY PRN Constipation Hydralazine HCl 25 mg 04/22/21 14:00 04/24/21 13:56 Hydralazine 25 Mg Tab PO 25 mg Q8HR BRAXTON Administration Dextrose/Sodium Chloride 1,000 mls @ 100 mls/hr 04/12/21 12:00 04/14/21 15:54 D5ns IV 100 mls/hr DIRECT BRAXTON Administration Levetiracetam 1,000 mg 04/22/21 23:00 04/24/21 09:46 Levetiracetam 500 Mg/5 Ml Oral Liqd PO 1,000 mg BID BRAXTON Administration Magnesium Hydroxide 30 ml 04/10/21 17:31 Magnesium Hydroxide (Mom) Oral Liqd Udc PO Q4H PRN Constipation Metoclopramide HCl 10 mg 04/10/21 17:31 Metoclopramide 10 Mg Tab PO Q6H PRN Nausea And Vomiting Ondansetron HCl 4 mg 04/10/21 17:31 Ondansetron 4 Mg/2 Ml Inj IV Q8H PRN Nausea And Vomiting Promethazine HCl 25 mg 04/10/21 17:31 04/18/21 21:27 Promethazine 25 Mg Rect Supp [place] 25 mg Q6H PRN Administration Nausea And Vomiting Sodium Chloride 10 ml 04/10/21 17:31 04/22/21 10:33 Sodium Chloride 0.9% 10 Ml Flush Syringe IV 10 ml PRN PRN Administration LINE FLUSH Nutrition/Malnutrition Assess - Dietary Evaluation Nutrition/Malnutrition Findings: Nutrition Notes Start: 04/11/21 13:20 Freq: Status: Active Protocol: Document 04/18/21 07:59 (Rec: 04/18/21 08:00 [id number]) Nutrition Notes Need for Assessment generated from: LOS Initial or Follow up Brief Note Subjective/Other Information Screen for LOS. Pt eating 100% of meals and ONS. Nutrition Intervention Revisit per MD consult or patient Sign Off request:
[2021-04-25] MEDS: hydrALAZINE 25 MG TAB PO SCH ×3 (05:28→22:19)
[2021-04-25 06:44] LABS: BUN/Creatinine Ratio 18; Blood Urea Nitrogen 21 mg/dL (9-20); Calcium 8.9 mg/dL (8.4-10.2); Hemolysis Index 9
[2021-04-25] MEDS: ASPIRIN 325 MG TAB PO SCH (10:03)
[2021-04-25] MEDS: levETIRAcetam 500 MG/5 ML ORAL LIQD PO SCH ×2 (10:03→22:18)
--- NOTE | 2021-04-25 10:48 | Progress Note ---
Assessment and Plan Assessment and plan: --Acute right CVA (cerebral vascular accident) Current Visit: Yes Status: Acute Not a candidate for TPA , Continue aspirin and statin PT OT recommended subacute rehab placement Family requested [facility] processing Pending insurance authorization Imaging studies; First CT head without contrast; acute/subacute MCA infarct on the right without hemorrhagic transformation 2 ventricular catheter seen no signs of hydrocephalus Follow-up CT head without contrast; subacute infarct MCA distribution in the right Nonspecific white matter changes in the periventricular and central white matter TRAPEZE ARTIST shunt catheters unchanged Unable to get MRI due to TRAPEZE ARTIST shunt and aneurysm coil --History of brain surgery/TRAPEZE ARTIST shunt/aneurysm coil 2009 Current Visit: Yes Status: Acute Requested medical records from [place] to clear for MRI study Unable to get MRI due to lack of information to clear for the study --Metabolic encephalopathy/sundowning; Current Visit: Yes Status: Acute Patient is more alert and awake responding appropriately However has some confusion and agitation during nights requiring Restraints --Hypertension Current Visit: Yes Status: Acute Well-controlled, continue current antihypertensives -- Obesity BMI 30.0 Current Visit: Yes Status: Acute patient needs outpatient weight reduction Dietary modification, exercise as tolerated and stable -- DVT prophylaxis Current Visit: Yes Status: Acute SCDs bilateral lower extremities while in bed -- Advance care planning; Current Visit: Yes Status: Acute Disease education conducted, care plan discussed, diagnosis discussed, prognosis discussed, patient is full code, patient family knowledges understanding and agreement with care plan, +30 minutes. Follow neuro evaluation and recommendations I discussed in detail with patient's daughter over the phone while visiting I explained in detail patient's condition treatment plan tests and reports, consultants recommendations, plan of care Delay of the MRI pending reports from [facility]. I answered all her questions And encouraged her to call back if she has any new concerns Brief history and daily hospital course Patient was admitted with acute CVA not a candidate for TPA, neuro work-up is in progress however patient has history of Cerebral aneurysm status post surgery with coil, TRAPEZE ARTIST shunt. Radiologist wanted to know if the material used in the surgery is MRI compatible Records requested from [place] pending clearance for MRI, unable to do the MRI, patient is receiving PT OT rehabilitation, recommended subacute rehab Case management processing the placement, waiting for insurance authorization 04/12/2021; patient more alert and awake today, dysarthria, confused at times Restraint for safety, follow neurology evaluation recommendations, follow neuro work-up Resumed service; 04/16/2021; patient is more alert and awake. Responding appropriately No new complaints, vital signs reviewed Continue PT OT, DC in 1 to 2 days if stable 04/17/2021; patient feels better, continue current management Restraint during nights due to sundowning and confusion Recommend subacute rehab, pending placemen daughter requests subacute rehab at [place] for discharge Case management processing, pending insurance authorization 04/18/2021; awaiting subacute rehab placement at [place] Awaiting insurance authorization 04/19/2021; pending placement Medically stable for discharge 04/20/2021 pending placement; 04/21/2021; pending ins. authorization for subacute rehab placement 04/22/2021; awaiting placement subacute rehab 04/23/2021; awaiting insurance authorization for [place] subacute rehab placement DC planning per case management 04/24/2021; patient is medically stable for discharge, awaiting for tubal subacute rehab placement Pending insurance authorization 04/25/2021; patient continues to have unsteady gait and lower extremity weakness And intermittent confusion, PT and OT recommended subacute rehab Pending insurance approval I discussed with P physician Dr. Cason, initially he denied approval However after discussing in detail patient's condition and PT evaluation, and the family report Of patient's previous normal ADL activities prior to the stroke, he approved subacute rehab placement I informed the case management, patient's nurse, I called patient's daughter unable to reach Possible discharge tomorrow to subacute rehab [place] History Interval history: I have seen and examined the patient at the bedside Patient's chart and medications reviewed Patient feels better, no new complaints Awaiting subacute rehab placement vital signs noted Hospitalist Physical - Constitutional Vitals: Temp Pulse Resp BP Pulse Ox 98.0 F 83 18 154/114 92 04/25/21 04:18 04/25/21 05:28 04/25/21 04:18 04/25/21 05:28 04/25/21 04:18 General appearance: Present: no acute distress, well-nourished, other (Responds appropriately) - EENT Eyes: Present: PERRL, EOM intact - Neck Neck: Present: supple, normal ROM - Respiratory Respiratory effort: normal Respiratory: bilateral: diminished, negative: rales, rhonchi, wheezing - Cardiovascular Rhythm: regular Heart Sounds: Present: S1 & S2 - Extremities Extremities: no ischemia, No edema - Abdominal General gastrointestinal: soft, non-tender, non-distended, normal bowel sounds - Integumentary Integumentary: Present: clear, warm - Psychiatric Psychiatric: appropriate mood/affect, cooperative - Neurologic Neurologic: moves all extremities HEART Score - HEART Score Troponin: Troponin T < 0.010 ng/mL (0.00-0.029) 04/10/21 15:46 Results - Labs CBC & Chem 7: 04/10/21 15:46 04/25/21 05:25 Labs: Laboratory Last Values WBC 7.3 K/mm3 (4.5-11.0) 04/10/21 15:46 RBC 4.84 M/mm3 (3.65-5.03) 04/10/21 15:46 Hgb 14.6 gm/dl (11.8-15.2) 04/10/21 15:46 Hct 42.9 % (35.5-45.6) 04/10/21 15:46 MCV 89 fl (84-94) 04/10/21 15:46 MCH 30 pg (28-32) 04/10/21 15:46 MCHC 34 % (32-34) 04/10/21 15:46 RDW 14.6 % (13.2-15.2) 04/10/21 15:46 Plt Count 235 K/mm3 (140-440) 04/10/21 15:46 Lymph % (Auto) 22.3 % (13.4-35.0) 04/10/21 15:46 Navarro % (Auto) 12.8 % (0.0-7.3) H 04/10/21 15:46 Eos % (Auto) 0.5 % (0.0-4.3) 04/10/21 15:46 Baso % (Auto) 0.5 % (0.0-1.8) 04/10/21 15:46 Lymph # (Auto) 1.6 K/mm3 (1.2-5.4) 04/10/21 15:46 Navarro # (Auto) 0.9 K/mm3 (0.0-0.8) H 04/10/21 15:46 Eos # (Auto) 0.0 K/mm3 (0.0-0.4) 04/10/21 15:46 Baso # (Auto) 0.0 K/mm3 (0.0-0.1) 04/10/21 15:46 Seg Neutrophils % 63.9 % (40.0-70.0) 04/10/21 15:46 Seg Neutrophils # 4.7 K/mm3 (1.8-7.7) 04/10/21 15:46 Sodium 141 mmol/L (137-145) 04/25/21 05:25 Potassium 3.7 mmol/L (3.6-5.0) 04/25/21 05:25 Chloride 112.1 mmol/L (98-107) H 04/25/21 05:25 Carbon Dioxide 16 mmol/L (22-30) L 04/25/21 05:25 Anion Gap 17 mmol/L 04/25/21 05:25 BUN 21 mg/dL (9-20) H 04/25/21 05:25 Creatinine 1.2 mg/dL (0.8-1.3) 04/25/21 05:25 Estimated GFR > 60 ml/min 04/25/21 05:25 BUN/Creatinine Ratio 18 % 04/25/21 05:25 Glucose 94 mg/dL (75-100) 04/25/21 05:25 Calcium 8.9 mg/dL (8.4-10.2) 04/25/21 05:25 Phosphorus 2.90 mg/dL (2.5-4.5) 04/17/21 05:12 Magnesium 1.90 mg/dL (1.7-2.3) 04/25/21 05:25 Total Bilirubin 0.50 mg/dL (0.1-1.2) 04/10/21 15:46 AST 16 units/L (5-40) 04/10/21 15:46 ALT 16 units/L (7-56) 04/10/21 15:46 Alkaline Phosphatase 110 units/L (35-129) 04/10/21 15:46 Troponin T < 0.010 ng/mL (0.00-0.029) 04/10/21 15:46 Total Protein 7.9 g/dL (6.3-8.2) 04/10/21 15:46 Albumin 4.1 g/dL (3.9-5) 04/10/21 15:46 Albumin/Globulin Ratio 1.1 % 04/10/21 15:46 Triglycerides 75 mg/dL (2-149) 04/11/21 04:19 Cholesterol 132 mg/dL (50-199) 04/11/21 04:19 LDL Cholesterol Direct 91 mg/dL (50-130) 04/11/21 04:19 HDL Cholesterol 40 mg/dL (40-59) 04/11/21 04:19 Cholesterol/HDL Ratio 3.30 % 04/11/21 04:19 Coronavirus (PCR) Negative (Negative) 04/15/21 Unknown Osborne/IV: Voiding Method Toilet Active Medications - Current Medications Current Medications: Generic Name Dose Route Start Last Admin Trade Name Freq PRN Reason Stop Dose Admin Acetaminophen 650 mg 04/10/21 17:31 04/18/21 21:26 Acetaminophen 325 Mg Tab PO 650 mg Q4H PRN Administration Pain, Mild (1-3) Albuterol 2.5 mg 04/10/21 17:31 Albuterol 2.5 Mg/3 Ml Nebu IH Q3HRT PRN Shortness Of Breath Aspirin 325 mg 04/11/21 10:00 04/25/21 10:03 Aspirin 325 Mg Tab PO 325 mg QDAY BRAXTON Administration Atorvastatin Calcium 40 mg 04/10/21 22:00 04/24/21 21:06 Atorvastatin 40 Mg Tab PO 40 mg QHS BRAXTON Administration Bisacodyl 10 mg 04/10/21 17:31 Bisacodyl 10 Mg Rect Supp PA QDAY PRN Constipation Hydralazine HCl 25 mg 04/22/21 14:00 04/25/21 05:28 Hydralazine 25 Mg Tab PO 25 mg Q8HR BRAXTON Administration Dextrose/Sodium Chloride 1,000 mls @ 100 mls/hr 04/12/21 12:00 04/14/21 15:54 D5ns IV 100 mls/hr DIRECT BRAXTON Administration Levetiracetam 1,000 mg 04/22/21 23:00 04/25/21 10:03 Levetiracetam 500 Mg/5 Ml Oral Liqd PO 1,000 mg BID BRAXTON Administration Magnesium Hydroxide 30 ml 06/23/21 17:31 Magnesium Hydroxide (Mom) Oral Liqd Udc PO Q4H PRN Constipation Metoclopramide HCl 10 mg 04/10/21 17:31 Metoclopramide 10 Mg Tab PO Q6H PRN Nausea And Vomiting Ondansetron HCl 4 mg 04/10/21 17:31 Ondansetron 4 Mg/2 Ml Inj IV Q8H PRN Nausea And Vomiting Promethazine HCl 25 mg 04/10/21 17:31 04/18/21 21:27 Promethazine 25 Mg Rect Supp PA 25 mg Q6H PRN Administration Nausea And Vomiting Sodium Chloride 10 ml 04/10/21 17:31 04/22/21 10:33 Sodium Chloride 0.9% 10 Ml Flush Syringe IV 10 ml PRN PRN Administration LINE FLUSH Nutrition/Malnutrition Assess - Dietary Evaluation Nutrition/Malnutrition Findings: Nutrition Notes Start: 04/11/21 13:20 Freq: Status: Active Protocol: Document 04/18/21 07:59 (Rec: 04/18/21 08:00 [id number]) Nutrition Notes Need for Assessment generated from: LOS Initial or Follow up Brief Note Subjective/Other Information Screen for LOS. Pt eating 100% of meals and ONS. Nutrition Intervention Revisit per MD consult or patient Sign Off request:
--- NOTE | 2021-04-25 10:53 | Event Note ---
Date: 04/25/21 foster care case manager called me and requested me to do P2P with insurance physician She informed me at 8:55 and asked me to call by 9:00 AM. I called insurance office [phone], discussed with insurance personnel they asked me to call between 1:30 and 2:00 PM
--- NOTE | 2021-04-25 13:48 | Event Note ---
Date: 04/25/21 I called insurance office [phone], Discussed with the insurance physician at 1:30 p.m. I discussed in detail patient's information mainly the physical therapy and Occupational Therapy evaluation and recommendations Initially the physician had some objections to Occupational Therapy note, however after explaining patient's physical condition Family's report and PT report that patient was fully functional prior to this stroke. was convinced and approved for Subacute rehab placement. I informed family independence case manager and the patient's nurse, I also informed the patient and his daughter.
[2021-04-26] MEDS: hydrALAZINE 25 MG TAB PO SCH ×2 (05:54→13:21)
[2021-04-26] MEDS: ASPIRIN 325 MG TAB PO SCH (09:38)
[2021-04-26] MEDS: levETIRAcetam 500 MG/5 ML ORAL LIQD PO SCH (09:38)
[2021-04-26 12:12] VITALS: BP 121/96
--- NOTE | 2021-04-26 12:27 | Discharge Summary ---
Providers - Providers Date of Admission: 04/11/21 12:06 Date of discharge: 04/26/21 Attending physician: AUDIE FLORES 04/10/21 17:32 Occupational Therapy Evaluate and Treat [CONS] Routine Comment: Reason For Exam: Neuro deficits Physical Therapy Evaluation and Treat [CONS] Routine Comment: Reason For Exam: Neuro deficits Speech Therapy Evaluation and Treat [CONS] Routine Reason For Exam: swallow eval 04/11/21 08:38 Speech Therapy Evaluation and Treat [CONS] Stat Reason For Exam: please eval for swallowing thanks 04/11/21 09:24 Consult to Physician [CONS] Routine Comment: Consulting Provider: MUKUND MONTALVO Physician Instructions: Reason For Exam: Acute CVA Primary care physician: INFORMATION TECHNOLOGY ASSISTANT Hospitalization Reason for admission: Metabolic encephalopathy/dysarthria/inability to walk/acute CVA Condition: Stable Pertinent studies: First CT head without contrast; acute/subacute MCA infarct on the right without hemorrhagic transformation 2 ventricular catheter seen no signs of hydrocephalus Follow-up CT head without contrast; subacute infarct MCA distribution in the right Nonspecific white matter changes in the periventricular and central white matter UNIT CLERK shunt catheters unchanged Unable to get MRI due to UNIT CLERK shunt and aneurysm coil CT head without contrast Echocardiogram carotid Doppler Hospital course: 70-year-old -[place] male patient with significant history of obesity hypertension brain aneurysm surgery was admitted through emergency room with altered level of consciousness, severe confusion, inability to walk and difficulty speaking Patient was evaluated by neurologist had extensive neuro work-up Is consistent with acute CVA on the right side Dysarthria and residual weakness Patient was appropriately managed with aspirin and statin blood pressure blood sugars closely monitored medications optimized Received physical therapy occupational therapy, recommended subacute rehab placement Patient symptoms slowly but gradually improved Today patient is comfortable still has slow speech and slurred Gait instability. And generalized weakness Patient is hemodynamically and clinically stable with guarded prognosis Discharge diagnosis; --Acute right CVA (cerebral vascular accident) Current Visit: Yes Status: Acute Not a candidate for TPA , Continue aspirin and statin PT OT recommended subacute rehab placement Family requested [facility] processing Pending insurance authorization Imaging studies; First CT head without contrast; acute/subacute MCA infarct on the right without hemorrhagic transformation 2 ventricular catheter seen no signs of hydrocephalus Follow-up CT head without contrast; subacute infarct MCA distribution in the right Nonspecific white matter changes in the periventricular and central white matter UNIT CLERK shunt catheters unchanged Unable to get MRI due to UNIT CLERK shunt and aneurysm coil --History of brain surgery/UNIT CLERK shunt/aneurysm coil 2009 Current Visit: Yes Status: Acute Requested medical records from [place] to tamera for MRI study Unable to get MRI due to lack of information to tamera for the study --Metabolic encephalopathy/sundowning; Current Visit: Yes Status: Acute Patient is more alert and awake responding appropriately However has some confusion and agitation during nights requiring Restraints --Hypertension Current Visit: Yes Status: Acute Well-controlled, continue current antihypertensives -- Obesity BMI 30.0 Current Visit: Yes Status: Acute patient needs outpatient weight reduction Dietary modification, exercise as tolerated and stable Stable at discharge Disposition: [id number] C[facility] Final Discharge Diagnosis (Prints w/discharge instructions): Acute CVA right. Residual weakness. History of brain surgery. Metabolic encephalopathy. Hypertension. Dyslipidemia. Obesity BMI 30. Unsteady gait Time spent for discharge: 35 min Core Measure Documentation - Palliative Care Palliative Care/ Comfort Measures: Not Applicable - Core Measures Any of the following diagnoses?: stroke - Stroke Discharge Requirements Statin for LDL = or >70 mg/dl on DC: Yes Anticoag for atrial fib/atrial flutter: Not Applicable Antithrombotic for ischemic stroke: Yes Exam - Constitutional Vitals: Temp Pulse Resp BP Pulse Ox 98.0 F 85 18 121/96 90 04/26/21 12:11 04/26/21 12:11 04/26/21 12:11 04/26/21 12:11 04/26/21 12:11 General appearance: Present: no acute distress, well-nourished, other (Slightly confused) - EENT Eyes: Present: PERRL, EOM intact - Neck Neck: Present: supple, normal ROM - Respiratory Respiratory effort: normal Respiratory: bilateral: diminished, negative: rales, rhonchi, wheezing - Cardiovascular Rhythm: regular Heart Sounds: Present: S1 & S2 - Extremities Extremities: no ischemia, No edema - Abdominal General gastrointestinal: Present: soft, non-tender, non-distended, normal bowel sounds - Integumentary Integumentary: Present: clear, warm - Musculoskeletal Musculoskeletal: strength equal bilaterally, generalized weakness - Psychiatric Psychiatric: appropriate mood/affect, other - Neurologic Neurologic: moves all extremities (Confused at times), other (Unsteady gait, generalized weakness) Plan Activity: advance as tolerated, fall precautions Diet: other (cardiac diet/mechanical soft) Special Instructions: physical therapy, occupational therapy Additional Instructions: Fall precautions. Aspiration precautions. If you have worsening symptoms contact MD or go to emergency room. Place to see private neurologist in 1 to 2 weeks Follow up with: PRIMARY CAREMD [Primary Care Provider] - 3-5 Days HERMINIA PARRY MD [Staff Physician] - 7 Days Prescriptions: hydrALAZINE [Apresoline TAB] 25 mg PO Q8HR #90 tablet bisacodyL [Dulcolax suppos] 10 mg TN QDAY PRN #20 supp.rect PRN Reason: Constipation Aspirin EC [Ecotrin] 325 mg PO QDAY #30 tablet. levETIRAcetam [Keppra] 1,000 mg PO BID #60 oral.liqd AtorvaSTATin [Lipitor] 40 mg PO QHS #30 tablet Ondansetron [Zofran Odt] 4 mg PO Q8HR PRN #30 tab.rapdis PRN Reason: Nausea And Vomiting
== END 2021-04-26 15:27 | DRG 64 ==
LOC: ED 12:38 → 4A 17:32 → OBSVTOIN 04-11 12:06
PROVIDERS: ADMIT Internal Medicine; ATTEND Internal Medicine
DX: I63.9 Cerebral infarction, unspecified (principal); G93.41 Metabolic encephalopathy; E66.2 Morbid (severe) obesity with alveolar hypoventilation; I10 Essential (primary) hypertension; R56.9 Unspecified convulsions; R29.704 NIHSS score 4; R47.1 Dysarthria and anarthria; E78.5 Hyperlipidemia, unspecified; Z20.822 Contact with and (suspected) exposure to COVID-19; R26.81 Unsteadiness on feet; Z68.29 Body mass index [BMI] 29.0-29.9, adult; Z82.49 Family history of ischemic heart disease and other diseases of the circulatory system; Z79.899 Other long term (current) drug therapy
CPT/HCPCS: 36415; 70450; 71045; 80048; 80053; 80061; 83735; 84100; 84484; 85025; 93005; 93306; 93880; G0378; A9270-GY; J0360; J1953; J2060; J7042; U0003